=== PATIENT | male | born 1965 | race Caucasian/White ===

== ENCOUNTER → 2018-03-28 | Outpatient (CLI) | payer MEDICARE ==
[~2018-03-28] MED LIST: ALPR1T; AMIO200T50; ASP325TEC; CARV3.12; GLMP4T; LISI20TA; METF-380; NTR.4SL; OXC20TCR; OXYC-272; SERT25TA; SIMV80TA3
--- NOTE | 2018-03-28 13:21 | Diagnostic Imaging Report ---
Indication: Fibular fracture followup There are no prior studies available for comparison. AP lateral views of the right tibia fibula show an oblique fracture of the shaft of the fibula at the junction of the proximal and middle thirds. There is no displacement or angular deformity. The tibia appears to be intact. There does appear to be some bony callus forming along the fracture margins. Impression: Healing right fibular shaft fracture Dictated by: Dictated on workstation # [id number]
== END ==
LOC: RAD FS 13:01
PROVIDERS: ATTEND Nurse Practitioner
DX: S82.431D Displaced oblique fracture of shaft of right fibula, subsequent encounter for closed fracture with routine healing (principal)
CPT/HCPCS: 73590

== ENCOUNTER 2018-04-25 05:41 | Outpatient (CLI) | payer MEDICARE ==
[~2018-04-25] VITALS: Ht 185.4 cm; Wt 108.9 kg
[~2018-04-25 05:41] MED LIST changes: -ALPR1TAB7 PO; -ATOR80TA76 PO; -BUPR75FI3 BC; -CLOP75TA69 PO; -DAPA5TAB PO; -FURO-125 PO; -GLIM4TAB PO; -INSU100I34 SQ; -ISOS30TA3 PO; -LOSA100T57 PO; -METO10TA7 PO; -MONT10TA24 PO; -NALO25TA PO; -NITR0.4T39 SL; -OXYC-565 PO; -OXYC20TA3 PO; -PREG150C PO; -PROP60CA PO; -ROPI2TAB4 PO; -SERT50TA9 PO; -TEST200V21 IM
[2018-04-25] MEDS ORDERED: BUPR75FI3 BC (12:54)
[2018-04-25] MEDS ORDERED: METO10TA7 PO (12:54)
[2018-04-25] MEDS ORDERED: NALO25TA PO (12:54)
[2018-04-25] MEDS ORDERED: GLIM4TAB PO (12:59)
[2018-04-25] MEDS ORDERED: SERT50TA9 PO (12:59)
[2018-04-25] MEDS ORDERED: ALPR1TAB7 PO (12:59)
[2018-04-25] MEDS ORDERED: NITR0.4T39 SL (12:59)
[2018-04-25] MEDS ORDERED: OXYC-565 PO (12:59)
[2018-04-25] MEDS ORDERED: TEST200V21 IM (14:27)
[2018-04-25] MEDS ORDERED: ROPI2TAB4 PO (14:27)
[2018-04-25] MEDS ORDERED: CLOP75TA69 PO (14:27)
[2018-04-25] MEDS ORDERED: ATOR80TA76 PO (14:27)
[2018-04-25] MEDS ORDERED: OXYC20TA3 PO (14:27)
[2018-04-25] MEDS ORDERED: FURO-125 PO (14:27)
[2018-04-25] MEDS ORDERED: INSU100I34 SQ (14:27)
[2018-04-25] MEDS ORDERED: PREG150C PO (14:27)
[2018-04-25] MEDS ORDERED: MONT10TA24 PO (14:27)
[2018-04-25] MEDS ORDERED: LOSA100T57 PO (14:30)
[2018-04-25] MEDS ORDERED: DAPA5TAB PO (14:30)
[2018-04-25] MEDS ORDERED: ISOS30TA3 PO (14:30)
[2018-04-25] MEDS ORDERED: PROP60CA PO (14:30)
== END 2018-04-25 14:42 | disposition home or self-care (01) ==
LOC: PREOP 05:41
PROVIDERS: ATTEND Surgery
DX: Z01.818 Encounter for other preprocedural examination (principal)

== ENCOUNTER → 2018-04-25 | Outpatient (CLI) | payer MEDICARE ==
[~2018-04-25] MED LIST changes: +ALPR1TAB7 PO; +ATOR80TA76 PO; +BUPR75FI3 BC; +CLOP75TA69 PO; +DAPA5TAB PO; +FURO-125 PO; +GLIM4TAB PO; +INSU100I34 SQ; +ISOS30TA3 PO; +LOSA100T57 PO; +METO10TA7 PO; +MONT10TA24 PO; +NALO25TA PO; +NITR0.4T39 SL; +OXYC-565 PO; +OXYC20TA3 PO; +PREG150C PO; +PROP60CA PO; +ROPI2TAB4 PO; +SERT50TA9 PO; +TEST200V21 IM
--- NOTE | 2018-04-25 12:00 | Diagnostic Imaging Report ---
INDICATION: Fibular fracture. Exam compared to 03/28/2018 A fracture junction proximal middle thirds of the shaft right fibula is redemonstrated. There has been some new periosteal and endosteal new bone formation consistent with its partial healing however fracture lines remain perceptible. No overlap, angulation or foreshortening. IMPRESSION: At the fibular shaft fracture is healing in anatomic alignment. Dictated by: Dictated on workstation # [id number]
== END ==
LOC: RAD FS 11:47
PROVIDERS: ATTEND Nurse Practitioner
DX: S82.434D Nondisplaced oblique fracture of shaft of right fibula, subsequent encounter for closed fracture with routine healing (principal)
CPT/HCPCS: 73590

== ENCOUNTER 2018-05-02 05:09 | Inpatient (IN) | payer MEDICARE ==
[~2018-05-02] VITALS: Ht 185.4 cm; Wt 109.1 kg
[2018-05-02] VITALS (30 sets, daily range): BP systolic 58–139; BP diastolic 31–67
[~2018-05-02 05:09] MED LIST changes: +ALPR1TAB7 PO; +ATOR80TA76 PO; +BUPR75FI3 BC; +CLOP75TA69 PO; +DAPA5TAB PO; +FURO-125 PO; +GLIM4TAB PO; +INSU100I34 SQ; +ISOS30TA3 PO; +LOSA100T57 PO; +METO10TA7 PO; +MONT10TA24 PO; +NALO25TA PO; +NITR0.4T39 SL; +OXYC-565 PO; +OXYC20TA3 PO; +PREG150C PO; +PROP60CA PO; +ROPI2TAB4 PO; +SERT50TA9 PO; +TEST200V21 IM
--- NOTE | 2018-05-02 05:40 | NUR ---
DOCTOR NOTIFIED OF PATIENT ARRIVAL.
[2018-05-02] MEDS ORDERED: NS IV 1000 ML 1,000 ML IV SCH (06:00)
--- NOTE | 2018-05-02 06:01 | ED General ---
General Chief Complaint: Glucose Problems Stated Complaint: HIGH BLOOD SUGAR Nursing Triage Note: "I took blood sugar at 0500 and it was over 600, I wasnt sure which insulin to give him and he was too confused to tell me." Nursing Sepsis Screen: No Definite Risk (RASHAUN PEÑA MD) History of Present Illness Date Seen by Provider: May 02, 2018 Time Seen by Provider: 05:50 Initial Comments pt is 52 yo m diabetic insulin dependent was due for wart surgery at 930 am on the right hand down in [place]. just was wewaker than normal yesterday slept most of the day just wasnt feeling like himself, was coughing a little. no dysuria that he knows of. no chest pain. when family got home from work yesterday at four pm he was already asleep he doesnt recall his last meal. this is unusual for him, no fever that he knows of. no vomiting. no abdominal pain. they are taking care of ulcer in between his right toes. (RASHAUN PEÑA MD) Allergies and Home Medications Allergies Coded Allergies: albuterol (Unverified Allergy, Intermediate, hives, 05/02/18) morphine (Verified Allergy, Unknown, itchy all over, 05/02/18) Home Medications Alprazolam 1 Mg Tablet, 1 MG PO QID PRN for ANXIETY, (Reported) Atorvastatin Calcium 80 Mg Tablet, 80 MG PO HS, (Reported) Buprenorphine HCl 75 Mcg Film, 75 MCG BC BID, (Reported) Clopidogrel Bisulfate 75 Mg Tablet, 75 MG PO DAILY, (Reported) Dapagliflozin Propanediol 5 Mg Tablet, 5 MG PO DAILY, (Reported) Furosemide 20 Mg Tablet, 20 MG PO DAILY PRN for FLUID RETENTION, (Reported) Glimepiride 4 Mg Tablet, 4 MG PO BID, (Reported) Insulin Glargine,Hum.rec.anlog 100 Unit/1 Ml Insuln.pen, 90 UNIT SQ DAILY, ( Reported) Isosorbide Mononitrate 30 Mg Tab.er.24h, 30 MG PO DAILY, (Reported) Losartan Potassium 100 Mg Tablet, 100 MG PO DAILY, (Reported) Metolazone 10 Mg Tablet, 10 MG PO DAILY, (Reported) Montelukast Sodium 10 Mg Tablet, 10 MG PO DAILY, (Reported) Naloxegol Oxalate 25 Mg Tablet, 25 MG PO DAILY, (Reported) Nitroglycerin 0.4 Mg Tab.subl, 0.4 MG SL UD PRN for CHEST PAIN, (Reported) Oxycodone HCl 30 Mg Tab.er.12h, 30 MG PO BID, (Reported) Oxycodone HCl 20 Mg Tablet, 20 MG PO Q4H PRN for PAIN-MILD, (Reported) Pregabalin 150 Mg Capsule, 150 MG PO TID, (Reported) Propranolol HCl 60 Mg Cap.sa.24h, 60 MG PO DAILY, (Reported) Ropinirole HCl 2 Mg Tablet, 2 MG PO HS, (Reported) Sertraline HCl 50 Mg Tablet, 50 MG PO DAILY, (Reported) Testosterone Cypionate 200 Mg/1 Ml Vial, 400 MG IM EVERY 2 WEEKS, (Reported) Patient Home Medication List Home Medication List Reviewed: Yes (RASHAUN PEÑA MD) Review of Systems Review of Systems Constitutional: see HPI, weakness Respiratory: cough Cardiovascular: No chest pain Gastrointestinal: no symptoms reported (RASHAUN PEÑA MD) Past Dbvcfsq-Ibtqsx-Mjbzro Hx Past Med/Social Hx: Reviewed Nursing Past Med/Soc Hx (RASHAUN PEÑA MD) Patient Social History Alcohol Use: Denies Use Recreational Drug Use: No Smoking Status: Current Everyday Smoker Type Used: Cigarettes 2nd Hand Smoke Exposure: Yes Recent Foreign Travel: No Contact w/Someone Who Travel: No Recent Infectious Disease Expo: No Physical Abuse: No Sexual Abuse: No Mistreated: No Fear: No (RASHAUN PEÑA MD) Past Medical History Reproductive Disorders: No (RASHAUN PEÑA MD) Physical Exam Vital Signs Vital Signs - First Documented 05/02/18 05/02/18 05:15 08:10 Temp 98.7 Pulse 96 Resp 16 B/P (MAP) 82/56 (65) Pulse Ox 100 O2 Delivery Room Air (BETTY JIMÉNEZ DO) Vital Signs Capillary Refill : Less Than 3 Seconds (RASHAUN PEÑA MD) Height, Weight, BMI Height: 6'1.00" Weight: 220lbs. oz. 99.627851ib; BMI Method:Estimated General Appearance: Mild Distress, Other (disheveled) HEENT: PERRL/EOMI, Pharynx Normal, Other (dry) Neck: Other (tracheostomy noted, appears old) Respiratory: Lungs Clear, Normal Breath Sounds, No Accessory Muscle Use Cardiovascular: Regular Rate, Rhythm, No Edema, Normal Peripheral Pulses Gastrointestinal: Normal Bowel Sounds, Non Tender, Soft Extremity: Normal Capillary Refill, Normal Inspection Neurologic/Psychiatric: Alert, Oriented x3, No Motor/Sensory Deficits, natural gas plant technician II- XII Norm as Tested (RASHAUN PEÑA MD) Focused Exam Lactate Level 05/02/18 06:15: Lactic Acid Level 3.03*H (BETTY JIMÉNEZ DO) Lactic Acid Level Laboratory Tests Test 05/02/18 06:15 Lactic Acid Level 3.03 MMOL/L (0.50-2.00) *H (BETTY JIMÉNEZ DO) Progress/Results/Core Measures Suspected Sepsis Recent Fever Within 48 Hours: No Infection Criteria Present: None New/Unexplained Altered Menta: Yes Sepsis Screen: No Definite Risk SIRS Temperature:98.7 Pulse: 96 Respiratory Rate: 16 Laboratory Tests 05/02/18 05:36: Blood Pressure 82 /56 Mean: 65 Laboratory Tests 05/02/18 05:36: (RASHAUN PEÑA MD) Results/Orders Lab Results Laboratory Tests Test 05/02/18 05:24 05/02/18 05:36 05/02/18 06:15 Range/Units Glucometer > 600 *H 70-110 MG/DL White Blood Count 16.0 H 4.3-11.0 10^3/uL Red Blood Count 4.91 4.35-5.85 10^6/uL Hemoglobin 10.4 L 13.3-17.7 G/DL Hematocrit 37 L 40-54 % Mean Corpuscular Volume 75 L 80-99 FL Mean Corpuscular Hemoglobin 21 L 25-34 PG Mean Corpuscular Hemoglobin Concent 28 L 32-36 G/DL Red Cell Distribution Width 19.6 H 10.0-14.5 % Platelet Count 220 130-400 10^3/uL Mean Platelet Volume 7.4-10.4 FL Neutrophils (%) (Auto) 85 H 42-75 % Lymphocytes (%) (Auto) 8 L 12-44 % Monocytes (%) (Auto) 6 0-12 % Eosinophils (%) (Auto) 0 0-10 % Basophils (%) (Auto) 1 0-10 % Neutrophils # (Auto) 13.6 H 1.8-7.8 X 10^3 Lymphocytes # (Auto) 1.3 1.0-4.0 X 10^3 Monocytes # (Auto) 0.9 0.0-1.0 X 10^3 Eosinophils # (Auto) 0.0 0.0-0.3 10^3/uL Basophils # (Auto) 0.1 0.0-0.1 10^3/uL Neutrophils % (Manual) 80 % Lymphocytes % (Manual) 7 % Monocytes % (Manual) 7 % Band Neutrophils 6 % Hypochromasia 2+ Anisocytosis 2+ Microcytosis 2+ Sodium Level 131 L 135-145 MMOL/L Potassium Level 7.1 *H 3.6-5.0 MMOL/L Chloride Level 90 L 98-107 MMOL/L Carbon Dioxide Level 26 21-32 MMOL/L Anion Gap 15 H 5-14 MMOL/L Blood Urea Nitrogen 97 H 7-18 MG/DL Creatinine 2.06 H 0.60-1.30 MG/DL Estimat Glomerular Filtration Rate 34 BUN/Creatinine Ratio 47 Glucose Level 904 *H 70-105 MG/DL Calcium Level 8.7 8.5-10.1 MG/DL Corrected Calcium 9.1 8.5-10.1 MG/DL Total Bilirubin 0.6 0.1-1.0 MG/DL Aspartate Amino Transf (AST/SGOT) 7 5-34 U/L Alanine Aminotransferase (ALT/SGPT) 7 0-55 U/L Alkaline Phosphatase 83 40-136 U/L Troponin T 36 H <=15 NG/L Total Protein 5.9 L 6.4-8.2 GM/DL Albumin 3.5 3.2-4.5 GM/DL Lipase 136 H 8-78 U/L Lactic Acid Level 3.03 *H 0.50-2.00 MMOL/L (BETTY JIMÉNEZ DO) My Orders Orders - BETTY JIMÉNEZ DO Ns Iv 1000 Ml (Sodium Chloride 0.9%) (05/02/18 06:14) Vancomycin Injection (Vancomycin Injecti (05/02/18 06:20) Piperacillin/Tazobactam (Bulk) (Zosyn In (05/02/18 06:20) Vancomycin Injection (Vancomycin Injecti (05/02/18 06:25) Piperacillin Sodium/Tazobactam (Zosyn Vi (05/02/18 06:26) Ns (Ivpb) (Sodium Chloride 0.9% Ivpb Bag (05/02/18 06:29) Ns Iv 500 Ml (Sodium Chloride 0.9%) (05/02/18 06:29) Insulin (Regular) Human (Humulin R (Per (05/02/18 06:34) Ns Iv 1000 Ml (Sodium Chloride 0.9%) (05/02/18 06:37) Calcium Gluconate 10% Inj (Calcium Glu (05/02/18 06:37) (BETTY JIMÉNEZ DO) Vital Signs/I&O 05/02/18 05/02/18 05:15 08:10 Temp 98.7 97.6 Pulse 96 89 Resp 16 15 B/P (MAP) 82/56 (65) 96/57 (70) Pulse Ox 100 100 O2 Delivery Room Air (BETTY JIMÉNEZ DO) Vital Signs/I&O Capillary Refill : Less Than 3 Seconds (RASHAUN PEÑA MD) Blood Pressure Mean: 65 Point of Care Testing Blood Glucose Action Taken: LABS DRAWN READING TOO HIGH (RASHAUN PEÑA MD) Progress Note : Progress Note 555 am insulin dependent diabetic hyperglycemia pressure 94/60 (triage was lower ) p/w decreased po intake and hyperglycemia in setting of not having been on insulin due to pending surgery. plan for labs, fluids and s/o to dr jiménez pending further workup. (RASHAUN PEÑA MD) Progress Note : Progress Note Aidan addendum: This is a 52-year-old male who presents to the emergency department with his significant other for generalized weakness today, he also was not feeling well yesterday although did not have specific infectious symptoms other than a chronic ulcer, a skin growth on his right third digit for which she is scheduled to have surgery today, and a mild cough. Hypotensive on arrival, this began to improve after receiving 1 L of saline, systolic blood pressures have been in the 90s since change of shift. Patient appears chronically ill, pale, but not in any acute distress and in no visible discomfort. Found to have significant hyperglycemia, bicarbonate level is okay, BUN/creatinine are significantly elevated with a potassium of 7.1. I ordered 2 additional liters for a full 3 L bolus in the emergency department, 10 units of IV insulin, empiric antibiotics, calcium gluconate. Patient and significant other are agreeable with plan for transfer for admission to [facility] , patient was accepted at approximately 6:[address] Mota. Pt will remain on a cardiorespiratory monitor while in the emergency department. Plan for ICU admission. (BETTY JIMÉNEZ DO) ECG Initial ECG Impression Date: May 02, 2018 Initial ECG Impression Time: 05:40 Comment nsr rate 91 no ischemic changes, query borderline peaked t waves? no stemi (RASHAUN PEÑA MD) Critical Care Note Critical Care Start Time: 06:00 Stop Time: 06:35 Total Time (minutes) 35 Progress Critical care time is exclusive of time spent on separately billable procedures. Risk to multiple organ systems from hypotension, dehydration, hyperglycemia, hyperkalemia. Treatment including multiple fluid boluses, IV calcium, IV insulin, frequent reassessments, discussion with accepting hospitalist, EMS, family. Interpretation of EKG, chest x-ray, labs. (BETTY JIMÉNEZ DO) Departure Impression Primary Impression: Hyperglycemia Additional Impressions: Acute kidney failure Qualified Codes: N17.9 - Acute kidney failure, unspecified Hyperkalemia Elevated troponin Hypotension Qualified Codes: I95.9 - Hypotension, unspecified Disposition: 02 XFER SHT-TRM HOSP Condition: Stable (guarded) Transfer Time Spoke to Accepting Phy: 06:45 Transfer Facility: [facility], accepted by Dr. Mota Method of Transfer: EMS (BETTY JIMÉNEZ DO) Departure-Patient Inst. Referrals: JOHNNIE MAGANA DO (PCP/Family) Primary Care Physician RASHAUN PEÑA MD May 02, 2018 06:01 BETTY JIMÉNEZ DO May 02, 2018 06:50
[2018-05-02 06:14] LABS: HEMATOCRIT 37 % (40-54); HEMOGLOBIN 10.4 G/DL (13.3-17.7); MEAN CORPUSCULAR HEMOGLOBIN 21 PG (25-34); MEAN CORPUSCULAR HGB CONC 28 G/DL (32-36); MEAN CORPUSCULAR VOLUME 75 FL (80-99); PLATELET COUNT 220 10^3/uL (130-400); RED CELL DISTRIBUTION WIDTH 19.6 % (10.0-14.5)
[2018-05-02] MEDS ORDERED: NS IV 1000 ML 1,000 ML IV STA ×2 (06:14→06:37)
[2018-05-02 06:15] LABS: BASOPHILS # (AUTO) 0.1 10^3/uL (0.0-0.1); BASOPHILS % (AUTO) 1 % (0-10); EOSINOPHILS % (AUTO) 0 % (0-10); LYMPHOCYTES # (AUTO) 1.3 X 10^3 (1.0-4.0); LYMPHOCYTES % (AUTO) 8 % (12-44); MONOCYTES # (AUTO) 0.9 X 10^3 (0.0-1.0); MONOCYTES % (AUTO) 6 % (0-12); NEUTROPHILS # (AUTO) 13.6 X 10^3 (1.8-7.8); NEUTROPHILS % (AUTO) 85 % (42-75)
[2018-05-02] MEDS ORDERED: PIPERACILLIN/TAZOBACTAM (BULK) 4.5 GM in NS (IVPB) 100 ML IV STA (06:20)
[2018-05-02] MEDS ORDERED: VANCOMYCIN INJECTION 2,000 MG in NS IV 500 ML 500 ML IV STA (06:20)
[2018-05-02] MEDS ORDERED: VANCOMYCIN 1000 MG/VIAL ONE (06:25)
[2018-05-02] MEDS ORDERED: PIPERACILLIN/TAZO 4.5 GM VIAL (ZOSYN) IV ONE (06:26)
[2018-05-02 06:27] LABS: BAND NEUTROPHILS 6 %; LYMPHOCYTES % (MANUAL) 7 %; MONOCYTES % (MANUAL) 7 %; NEUTROPHILS % (MANUAL) 80 %
[2018-05-02 06:28] LABS: ANISOCYTOSIS 2+; HYPOCHROMASIA 2+; MICROCYTOSIS 2+
[2018-05-02] MEDS ORDERED: NS (IVPB) 100 ML ONE (06:29)
[2018-05-02] MEDS ORDERED: NS IV 500 ML 500 ML ONE (06:29)
[2018-05-02 06:30] LABS: BILIRUBIN,TOTAL 0.6 MG/DL (0.1-1.0); CALCIUM 8.7 MG/DL (8.5-10.1); CREATININE SERUM 2.06 MG/DL (0.60-1.30)
[2018-05-02 06:31] LABS: ALBUMIN 3.5 GM/DL (3.2-4.5); TOTAL PROTEIN 5.9 GM/DL (6.4-8.2)
[2018-05-02 06:33] LABS: POTASSIUM 7.1 MMOL/L (3.6-5.0)
[2018-05-02] MEDS ORDERED: inSUlin (REGULAR) HUMAN 1 UNIT/0.01 ML (CHARGE PER UNIT) IV STA (06:34)
[2018-05-02] MEDS ORDERED: NOVOLOG (06:37)
[2018-05-02] MEDS ORDERED: BUPRENORPHINE 75 MCG (06:37)
[2018-05-02] MEDS ORDERED: CALCIUM GLUCONATE 10% INJ 4.65 MEQ in NS (IVPB) 50 ML IV STA (06:37)
--- NOTE | 2018-05-02 06:55 | Diagnostic Imaging Report ---
INDICATION: Chest discomfort AP upright portable view of the chest is obtained with comparison made to the study of 03/04/2008. Heart size is at the upper limits of normal. There is air trapping in the upper lobes, however, no pneumothorax or consolidation is identified. There may be mild right parahilar atelectasis and/or pneumonitis. Tracheostomy tube has been placed with median sternotomy wires noted. IMPRESSION: Air trapping in the upper lobes may reflect developing emphysema. There may be mild right parahilar atelectasis and/or pneumonitis, however, no other adverse change is detected. Dictated by: Dictated on workstation # [id number]
[2018-05-02] MEDS ORDERED: MIDAZOLAM 5 MG/5 ML (VERSED) VIAL IJ ONE (07:31)
[2018-05-02] MEDS ORDERED: fentaNYL INJECTION 100 MCG/2 ML AMP INJ ONE (07:31)
--- NOTE | 2018-05-02 08:32 | NUR ---
pharmacy called for med rec
[2018-05-02] MEDS ORDERED: 1/2 NS IV SOLUTION 1,000 ML IV SCH (09:30)
[2018-05-02] MEDS ORDERED: CATHETER FLUSH 10 ML SYR IV PRN (09:30)
[2018-05-02 09:40] LABS: HEMATOCRIT 29 % (40-54); MEAN CORPUSCULAR HEMOGLOBIN 22 PG (25-34); MEAN CORPUSCULAR HGB CONC 31 G/DL (32-36); MEAN CORPUSCULAR VOLUME 71 FL (80-99); PLATELET COUNT 189 10^3/uL (130-400); RED CELL DISTRIBUTION WIDTH 18.9 % (10.0-14.5); WHITE BLOOD COUNT 11.2 10^3/uL (4.3-11.0)
[2018-05-02] MEDS ORDERED: NS IV 1000 ML 1,000 ML ONE (09:49)
[2018-05-02] MEDS ORDERED: LIDOCAINE 1% INJ 20 ML 20 ML VIAL ONE (09:55)
[2018-05-02 09:57] LABS: CALCIUM 8.4 MG/DL (8.5-10.1); CREATININE SERUM 2.2 MG/DL (0.60-1.30); POTASSIUM 4.7 MMOL/L (3.6-5.0)
[2018-05-02 10:02] LABS: INR 1.1 (0.8-1.4); PROTHROMBIN TIME PATIENT 15.1 SEC (12.2-14.7)
[2018-05-02] MEDS ORDERED: inSUlin (REGULAR) HUMAN 1 UNIT/0.01 ML (CHARGE PER UNIT) SC NR (10:30)
[2018-05-02] MEDS ORDERED: inSUlin REGULAR TPN/DRIP ONLY 250 UNITS in NORMAL SALINE 250 ML IV SCH (10:30)
[2018-05-02] MEDS ORDERED: NITR0.4T42 SL (10:31)
[2018-05-02] MEDS ORDERED: CEFD300C3 PO (10:31)
[2018-05-02] MEDS ORDERED: FURO20TA4 PO (10:31)
[2018-05-02] MEDS ORDERED: CLOP75TA28 PO (10:31)
[2018-05-02 11:03] LABS: BILIRUBIN,URINE NEGATIVE (NEGATIVE); CLARITY,URINE CLEAR; COLOR,URINE YELLOW; GLUCOSE, URINE (UA) 4+ (NEGATIVE); KETONES,URINE 1+ (NEGATIVE); LEUKOCYTE ESTERASE ,URINE NEGATIVE (NEGATIVE); NITRITE,URINE NEGATIVE (NEGATIVE); PH,URINE 6.5 (5-9); PROTEIN,URINE NEGATIVE (NEGATIVE); UROBILINOGEN,URINE NORMAL (NORMAL)
--- NOTE | 2018-05-02 11:17 | History & Physical-Hospitalist ---
History of Present Illness HPI/Chief Complaint Pt is a 52yoCM with a PMH of IDDMII, PVD, trach dependency from vocal cord paralysis who presented to the ER due elevated blood sugar. He is unable to provide any history due to altered mentation but his fiance is at bedside who helps fill in some details. reported he was normal 2 days ago and when she returned home from work at 4pm yesterday he was already asleep. She did not think much of this but she awoke this morning at 230am and he seemed "out of it " so she checked his blood sugar and it read over 600 so she brought him to the ER. He was found to have a BS of >900 and was hypotensive on arrival. He also had an CARLIN with significant uremia and hyperkalemia. He was transferred here for higher level of care. En route he had a large bloody bowel movement. His fiance is unsure if he had any other bloody bowel movements. Source: patient Date Seen 05/02/18 Time Seen by a Provider: 11:12 Attending Physician Jayesh Mota MD PCP Dallas Wadsworth DO Referring Physician Date of Admission May 02, 2018 at 07:37 Home Medications & Allergies Home Medications Reviewed patient Home Medication Reconciliation performed by pharmacy medication reconciliations security technician and/or nursing. Patients Allergies have been reviewed. Allergies Allergies Coded Allergies albuterol (Unverified Allergy, Intermediate, hives, 05/02/18) morphine (Verified Allergy, Unknown, itchy all over, 05/02/18) Past Iloidha-Dkjjlt-Clqkbz Hx Past Med/Social Hx: Reviewed Nursing Past Med/Soc Hx Patient Social History Alcohol Use: Denies Use Recreational Drug Use: No Smoking Status: Current Everyday Smoker Type Used: Cigarettes 2nd Hand Smoke Exposure: Yes Recent Foreign Travel: No Contact w/other who traveled: No Recent Infectious Disease Expo: No Past Medical History Surgeries: Tracheostomy Respiratory: Emphysema Cardiac: Hypertension, Peripheral Vascular Reproductive: No Endocrine: Diabetes, Insulin dep Cancer: Skin (squamous cell) Family History Reviewed Nursing Family Hx (unable to obtain due to altered mental status) Review of Systems ROS-Unable to Obtain: altered Constitutional: see HPI Physical Exam Physical Exam Vital Signs Vital Signs - First Documented 05/02/18 05/02/18 05/02/18 05/02/18 05:15 08:10 14:50 16:00 Temp 98.7 Pulse 96 Resp 16 B/P (MAP) 82/56 (65) Pulse Ox 100 O2 Delivery Room Air O2 Flow Rate 50.00 FiO2 50 Capillary Refill : Less Than 3 Seconds Height, Weight, BMI Height: 6'1.00" Weight: 240lbs. 0.0oz. 108.827551ay; 31.7 BMI Method:Estimated General Appearance: Chronically ill, Obese HEENT: PERRL/EOMI; No Scleral Icterus (L), No Scleral Icterus (R) Neck: Other (trach in place) Respiratory: Lungs Clear, No Respiratory Distress Cardiovascular: Regular Rate, Rhythm, No Murmur Gastrointestinal: Normal Bowel Sounds, Non Tender, Soft Extremity: No Calf Tenderness, No Pedal Edema, Other (right foot wound between 3rd and 4th digit) Neurologic/Psychiatric: Alert, Disoriented Skin: Tattoos/Piercings Results Results/Procedures Labs Laboratory Tests 05/02/18 05:36 05/02/18 09:30 05/02/18 15:14 05/02/18 17:58 05/02/18 20:00 05/03/18 00:30 05/03/18 03:20 05/03/18 07:00 05/03/18 12:20 Patient resulted labs reviewed. Imaging: Reviewed Imaging Report Assessment/Plan Admission Diagnosis Acute Renal failure, GI Bleed, HHS Admission Status: Inpatient Order (span 2 midnights) Reason for Inpatient Admission: hypotensive, needs surgery evaluation for GI bleed and IVF for CARLIN- multiple chronic medical problems will require at least 2 midnights to stabilize for DC and likely longer Diagnosis/Problems Diagnosis/Problems (1) Acute kidney failure Status: Acute Assessment & Plan: Creatinine 2- last available creatinine was nearly 10 years ago and normal Significant uremia Continue IVF trend hyperkalemia resolved and not acidotic Qualifiers: Acute renal failure type: unspecified Qualified Codes: N17.9 - Acute kidney failure, unspecified (2) GI bleed Status: Acute Assessment & Plan: BRBPR per EMS Hgb dropped to 9 from 10.6 this AM May be due to dilution as well Surgery consulted, appreciate recs Will start PPI Qualifiers: GI bleed type/associated pathology: unspecified gastrointestinal hemorrhage type Qualified Codes: K92.2 - Gastrointestinal hemorrhage, unspecified (3) Hyperosmolar non-ketotic state in patient with type 2 diabetes mellitus Assessment & Plan: Not in DKA Continue insulin gtt A1c pending (4) Lactic acidosis Status: Resolved Assessment & Plan: Likely due to hypotension, does not appear to be related to sepsis trend Continue IVF Resolution Date/Time: 05/03/18 @ 07:31 (5) Tracheostomy present Assessment & Plan: Trach care Pulm consulted, appreciate recs (6) Altered mental status Assessment & Plan: likely metabolic encephalopathy from uremia No focal deficits but if does not improve consider CT head Qualifiers: Altered mental status type: delirium Qualified Codes: R41.0 - Disorientation, unspecified (7) Hyperkalemia Status: Acute Assessment & Plan: Now resolved (8) Hypotension Status: Acute Assessment & Plan: Art line ordered Presumably due to hypovolemia Qualifiers: Hypotension type: unspecified hypotension type Qualified Codes: I95.9 - Hypotension, unspecified (9) Elevated troponin Status: Acute Assessment & Plan: Will recheck here Consult cardiology, spoke with Dr Montgomery appreciate assistance (10) Wound, open, toe Assessment & Plan: Wound care consulted, I spoke with Dr Staples who will see in consultation XR ordered appreciate recs Qualifiers: Encounter type: initial encounter Qualified Codes: S91.109A - Unspecified open wound of unspecified toe(s) without damage to nail, initial encounter ELAINA MCLEOD MD May 02, 2018 11:16
[2018-05-02 11:25] LABS: BACTERIA,URINE NEGATIVE /HPF; SQUAMOUS EPITHELIAL CELL,UR RARE /HPF
--- NOTE | 2018-05-02 11:26 | Pulmonary Consultation ---
History of Present Illness History of Present Illness Date of Consultation 05/02/18 11:21 Time Seen by Provider: 07:58 Date of Admission History of Present Illness 52yo with hx of IDDM, chronic trach seocndary to vocal cord paralysis and chronic respiratory failure presented to ED secondary to worsening hyperglycemia and lethargy. Symptoms have been progressive over the last 24hrs. BS was >900 in the ED. PT was also hypotensive on arrival and was found to have acute GIB. He is also in acute renal failure. Unable to obtain full ROS. I am consulted for ICU/pulmonary management. Allergies and Home Medications Allergies Coded Allergies: albuterol (Unverified Allergy, Intermediate, hives, 05/02/18) morphine (Verified Allergy, Unknown, itchy all over, 05/02/18) Home Medications Alprazolam 1 Mg Tablet, 1 MG PO QID PRN for ANXIETY, (Reported) Aspirin 325 Mg Tablet.dr, 325 MG PO HS, (Reported) Atorvastatin Calcium 80 Mg Tablet, 80 MG PO HS, (Reported) Cefdinir 300 Mg Capsule, 300 MG PO BID, (Reported) 10 DAY SUPPLY FILLED 04-22-18 Clopidogrel Bisulfate 75 Mg Tablet, 75 MG PO HS, (Reported) Dapagliflozin Propanediol 5 Mg Tablet, 5 MG PO DAILY, (Reported) Furosemide 20 Mg Tablet, 20 MG PO DAILY, (Reported) Glimepiride 4 Mg Tablet, 4 MG PO BID, (Reported) Insulin Aspart 300 Units/3 Ml Solution, 20 UNITS SC TIDAC, (Reported) Insulin Glargine,Hum.rec.anlog 100 Unit/1 Ml Insuln.pen, 90 UNIT SQ DAILY, ( Reported) Isosorbide Mononitrate 30 Mg Tab.er.24h, 30 MG PO DAILY, (Reported) Losartan Potassium 100 Mg Tablet, 100 MG PO HS, (Reported) Metolazone 10 Mg Tablet, 10 MG PO DAILY, (Reported) Montelukast Sodium 10 Mg Tablet, 10 MG PO DAILY, (Reported) Naloxegol Oxalate 25 Mg Tablet, 25 MG PO HS, (Reported) Nitroglycerin 0.4 Mg Tab.subl, 0.4 MG SL UD PRN for CHEST PAIN, (Reported) Oxycodone HCl 20 Mg Tablet, 20 MG PO Q4H PRN for PAIN-SEVERE, (Reported) Oxycodone HCl 30 Mg Tab.er.12h, 30 MG PO Q8H, (Reported) Pregabalin 150 Mg Capsule, 150 MG PO TID, (Reported) Propranolol HCl 60 Mg Cap.sa.24h, 60 MG PO HS, (Reported) Ropinirole HCl 2 Mg Tablet, 2 MG PO HS, (Reported) Sertraline HCl 50 Mg Tablet, 50 MG PO HS, (Reported) Testosterone Cypionate 200 Mg/1 Ml Vial, 400 MG IM EVERY 2 WEEKS, (Reported) Past Mllkdbi-Difmph-Niujpm Hx Past Med/Social Hx: Reviewed Nursing Past Med/Soc Hx Patient Social History Alcohol Use: Denies Use Recreational Drug Use: No Smoking Status: Current Everyday Smoker Type Used: Cigarettes 2nd Hand Smoke Exposure: Yes Recent Foreign Travel: No Contact w/Someone Who Travel: No Recent Infectious Disease Expo: No Physical Abuse: No Sexual Abuse: No Mistreated: No Fear: No Past Medical History Surgeries: Yes Reproductive Disorders: No Endocrine: Yes Diabetes, Insulin dep Review of Systems Time Seen by Provider: 08:02 Sepsis Event Evaluation Height, Weight, BMI Height: 6'1.00" Weight: 240lbs. 0.0oz. 108.095162fh; 31.7 BMI Method:Estimated Exam Exam Vital Signs Date Time Temp Pulse Resp B/P (MAP) Pulse Ox O2 Delivery O2 Flow Rate FiO2 05/02/18 10:30 106 14 112/41 (64) 05/02/18 10:15 98 101/41 (61) 05/02/18 10:00 98 21 106/59 (75) 97 05/02/18 09:40 93 77/41 (53) 93 05/02/18 09:30 95 72/33 (46) 94 05/02/18 09:25 96 14 92/38 (56) 99 05/02/18 09:19 96 05/02/18 09:10 103 106/67 (80) 05/02/18 08:10 97.6 89 15 96/57 (70) 100 Room Air 05/02/18 05:15 98.7 96 16 82/56 (65) 100 I & O 05/02/18 07:00 Intake Total 1000 ml Balance 1000 ml Height & Weight Height: 6'1.00" Weight: 240lbs. 0.0oz. 108.769053ck; 31.7 BMI Method:Estimated General Appearance: Mild Distress, Other (disheveled) HEENT: PERRL/EOMI, Pharynx Normal, Other (dry) Neck: Other (tracheostomy noted, appears old) Respiratory: Lungs Clear, Normal Breath Sounds, No Accessory Muscle Use Cardiovascular: Regular Rate, Rhythm, No Edema, Normal Peripheral Pulses Capillary Refill: Less Than 3 Seconds Extremity: Normal Capillary Refill, Normal Inspection Neurologic/Psychiatric: Alert, Oriented x3, No Motor/Sensory Deficits, assessment director II- XII Norm as Tested Results Lab Laboratory Tests 05/02/18 05:36 05/02/18 09:30 Assessment/Plan Assessment/Plan Chronic respiratory failure with tracheostomy -Obtain old records -Oxygen -Monitor Hyperglycemia -- HHNK -start insulin gtt Hypotension -Anesthesia for art line -Monitor close -Give 1 liter bolus of NS AKF -IVF -Monitor GIB -- lower GIB vs major upper GIB ( BUN is 101) -Start Protonix BID IV -consult surgery -Check H&H Q 6 -IVF Hyperkalemia -recheck and monitor Elevated troponin - probably secondary to hypotension ACOSTA FRAGA DO May 02, 2018 11:26
[2018-05-02] MEDS ORDERED: PANTOPRAZOLE 40 MG (PROTONIX) VIAL IV NR (11:30)
[2018-05-02] MEDS ORDERED: OXYC30TA77 PO (11:31)
[2018-05-02] MEDS ORDERED: INSU100I14 SC (11:31)
[2018-05-02] MEDS ORDERED: ASPI325T32 PO (11:31)
--- NOTE | 2018-05-02 11:32 | NUR ---
PATIENTS HAD A DETAILED MEDICATION LIST ON HER PHONE, I COMPARED IT WITH THE EXT MED HX. HE FILLED A 7 DAY SUPPLY OF BELBUCA THIS MONTH HOWEVER SHE STATES HE HAS NOT STARTED IT YET. I DID NOT ADD IT TO THE MED REC AT THIS TIME.
[2018-05-02 11:47] LABS: ABG BASE EXCESS -1.7 MMOL/L (-2.5-2.5); ABG OXYGEN SATURATION 100 % (94-100); ABG PCO2 28 MMHG (35-45); ABG PH 7.49 (7.37-7.43); ABG PO2 163 MMHG (79-93); ABG TCO2 22.2 MMOL/L (21.0-31.0)
[2018-05-02 11:53] LABS: ALLENS TEST YES-POS; INSPIRED O2 4; PATIENT TEMP 97.1; VENTILATOR NO
[2018-05-02] MEDS ORDERED: LORazepam INJ 2 MG/ML (ATIVAN) VIAL IVP ONE (13:30)
--- NOTE | 2018-05-02 14:06 | Diagnostic Imaging Report ---
INDICATION: Toe wound. COMPARISON: None. FINDINGS: Two radiographic views of the right foot were obtained. There is mild lateral subluxation of the middle fourth phalanx in respect to the proximal fourth phalanx. Note is also made of erosive appearance to the lateral margins of the fourth middle phalanx as well as the distal end of the fifth distal phalanx. There is some associated soft tissue emphysema. Other remaining osseous structures show no acute abnormalities. No unexpected radiopaque foreign bodies are seen. IMPRESSION: 1. Osseous erosions to the fourth middle phalanx and fifth distal phalanx. Presence of soft tissue emphysema and soft tissue edema suggests osteomyelitis. Clinical correlation is recommended. Dictated by: Dictated on workstation # [id number]
[2018-05-02] MEDS ORDERED: HALOPERIDOL 5 MG/ML (HALDOL) AMP IV NR (14:19)
[2018-05-02] MEDS ORDERED: fentaNYL INJECTION 100 MCG/2 ML AMP ONE (14:22)
[2018-05-02] MEDS ORDERED: MIDAZOLAM 5 MG/5 ML (VERSED) VIAL ONE (14:22)
--- NOTE | 2018-05-02 14:23 | Diagnostic Imaging Report ---
INDICATION: Wounds to the feet. COMPARISON: None. FINDINGS: Two views of the left foot demonstrate no acute fracture or dislocation. There are no focal osseous lesions. There is no soft tissue swelling. Joint spaces are well maintained. No radiopaque foreign bodies are seen. IMPRESSION: No acute fractures or dislocations of the left foot. Dictated by: Dictated on workstation # [id number]
[2018-05-02] MEDS ORDERED: PROPOFOL DRIP (ICU) 100 ML IV ONE ×2 (14:28→18:17)
[2018-05-02] MEDS ORDERED: DEXMEDETOMIDINE INJECTION 200 MCG in NS (IVPB) 50 ML IV SCH (15:00)
--- NOTE | 2018-05-02 15:24 | Anesthesia-Procedure Note ---
Procedures/Interventions Procedure Start/Stop/Diagnosis Date of Procedure: May 02, 2018 Start Time: 11:45 Referring Physician: Dr Iglesias Preprocedural Diagnosis: Hypotension Brief History Called to ICU by Dr Iglesias for an arterial line placement. Brief history obtained from Dr Iglesias and patient. Attempted left radial times one without U/ S after ~1/2 ml 1% lidocaine, however I was unable to easily locate the artery. Returned with the U/S and was able to place a right radial art line under direct visualization. Chloraprep and sterile drapes and a sterile U/S probe cover were used. Pt tolerated the procedure well and we will be available if needed. Stop Time: 12:05 Postprocedural Diagnosis: Same Arterial Line Arterial Line Catheter: 22G Type: Radial Location: Right Procedure: prepped, draped in sterile fashion (ChloraPrep), 1% lidocaine used to numb region (~1/2 ml 1% Lidocaine ), good wave-form was obtained, patient tolerated procedure well, no immediate complications, post procedure area cleaned, post procedure dressing applied KWESI VASQUEZ DO May 02, 2018 15:24
[2018-05-02 15:32] LABS: HEMOGLOBIN 6.1 G/DL (13.3-17.7)
[2018-05-02] MEDS ORDERED: POTASSIUM CL 10MEQ/50ML IVPB 50 ML IV ONE (15:39)
--- NOTE | 2018-05-02 15:47 | Pulmonary Progress Note ---
Standard Progress Note Progress Notes Date Seen by Provider: May 02, 2018 Time Seen by Provider: 14:20 Called to bedside secondary to combative patient. 3-4 RNs at bedside holding patient down. Pt ripped IV out. He was trying to throw punches as RN was restraining patient. To control pt's combative behavior I ordered Fentanyl and Versed with repeating doses to obtain sedation. PT was restrained by RNs with soft restraints. PT has a chronic tracheostomy with size 6 uncuffed. I attempted to place size 6 cuffed tracheostomy after pt was sedated so he could be placed on vent. I called surgery to assist with trach tube placement. After cuffed trach tube was placed propofol was started and pt was placed back on vent. Time spent with pt not including initial consult this morning was from [id number]. Assessment & Plan Chronic respiratory failure with tracheostomy -Will place pt on vent and add propofol -Obtain old records -Oxygen -Monitor Hyperglycemia -- HHNK -start insulin gtt Hypotension - improved with IVF -Anesthesia for art line -Monitor close -Give 1 liter bolus of NS -Dr. Jmienez at bedside and will place central line AKF -IVF -Monitor GIB -- lower GIB vs major upper GIB ( BUN is 101) -Start Protonix BID IV -consult surgery -Check H&H Q 6 -IVF Hyperkalemia -recheck and monitor Elevated troponin - probably secondary to hypotension Critical Care: Critically Ill Patient Time spent with patient (mins): 75 Focused Exam Lactate Level 05/02/18 06:15: Lactic Acid Level 3.03*H 05/02/18 09:30: Lactic Acid Level 2.54*H 05/02/18 15:14: Lactic Acid Level Laboratory Tests Test 05/02/18 15:14 ACOSTA FRAGA DO May 02, 2018 15:47
--- NOTE | 2018-05-02 16:03 | Consultation-Cardiology ---
HPI-Cardiology Cardiology Consultation Date of Consultation 05/02/18 Date of Admission Time Seen by Provider: 15:58 Indication: coronary artery disease HPI 52 years old gentleman with history of tracheostomy, diabetes mellitus. Patient was found by his girlfriend unresponsive, was noted to be hyperglycemic. Transferred to our hospital. He was having multiple bloody bowel movements. He became agitated and try to attack the nurses, had extensive cardiac history, progressed into respiratory failure, had his tracheostomy, patient was sedated and placed on ventilator, currently he is sedated and intubated, hypotensive. Unable to provide history. Home Medications & Allergies Allergies: Coded Allergies: albuterol (Unverified Allergy, Intermediate, hives, 05/02/18) morphine (Verified Allergy, Unknown, itchy all over, 05/02/18) Home Medication List Reviewed: Yes LZR-Ttencg-Uomoth Hx Patient Social History Marital Status: cohabiting Employed/Student: unemployed Alcohol Use: Denies Use Recreational Drug Use: No Smoking Status: Current Everyday Smoker Type Used: Cigarettes 2nd Hand Smoke Exposure: Yes Recent Foreign Travel: No Recent Infectious Disease Expo: No Past Medical History unable to provide history, history was obtained by reviewing his record Family Medical History Family Medical Hx noncontributory to his current condition Review of Systems Constitutional: other (sedated and intubated, unable to provide history) Reviewed Test Results Reviewed Test Results Lab Laboratory Tests Test 05/02/18 05:24 05/02/18 05:36 05/02/18 06:15 05/02/18 09:30 Range/Units Glucometer > 600 *H 70-110 MG/DL White Blood Count 16.0 H 11.2 H 4.3-11.0 10^3/uL Red Blood Count 4.91 4.09 L 4.35-5.85 10^6/uL Hemoglobin 10.4 L 9.0 L 13.3-17.7 G/DL Hematocrit 37 L 29 L 40-54 % Mean Corpuscular Volume 75 L 71 L 80-99 FL Mean Corpuscular Hemoglobin 21 L 22 L 25-34 PG Mean Corpuscular Hemoglobin Concent 28 L 31 L 32-36 G/DL Red Cell Distribution Width 19.6 H 18.9 H 10.0-14.5 % Platelet Count 220 189 130-400 10^3/uL Mean Platelet Volume 7.4-10.4 FL Neutrophils (%) (Auto) 85 H 42-75 % Lymphocytes (%) (Auto) 8 L 12-44 % Monocytes (%) (Auto) 6 0-12 % Eosinophils (%) (Auto) 0 0-10 % Basophils (%) (Auto) 1 0-10 % Neutrophils # (Auto) 13.6 H 1.8-7.8 X 10^3 Lymphocytes # (Auto) 1.3 1.0-4.0 X 10^3 Monocytes # (Auto) 0.9 0.0-1.0 X 10^3 Eosinophils # (Auto) 0.0 0.0-0.3 10^3/uL Basophils # (Auto) 0.1 0.0-0.1 10^3/uL Neutrophils % (Manual) 80 % Lymphocytes % (Manual) 7 % Monocytes % (Manual) 7 % Band Neutrophils 6 % Hypochromasia 2+ Anisocytosis 2+ Microcytosis 2+ Sodium Level 131 L 136 135-145 MMOL/L Potassium Level 7.1 *H 4.7 3.6-5.0 MMOL/L Chloride Level 90 L 102 98-107 MMOL/L Carbon Dioxide Level 26 24 21-32 MMOL/L Anion Gap 15 H 10 5-14 MMOL/L Blood Urea Nitrogen 97 H 101 *H 7-18 MG/DL Creatinine 2.06 H 2.20 H 0.60-1.30 MG/DL Estimat Glomerular Filtration Rate 34 31 BUN/Creatinine Ratio 47 46 Glucose Level 904 *H 794 *H 70-105 MG/DL Calcium Level 8.7 8.4 L 8.5-10.1 MG/DL Corrected Calcium 9.1 8.5-10.1 MG/DL Total Bilirubin 0.6 0.1-1.0 MG/DL Aspartate Amino Transf (AST/SGOT) 7 5-34 U/L Alanine Aminotransferase (ALT/SGPT) 7 0-55 U/L Alkaline Phosphatase 83 40-136 U/L Troponin T 36 H <=15 NG/L Total Protein 5.9 L 6.4-8.2 GM/DL Albumin 3.5 3.2-4.5 GM/DL Lipase 136 H 8-78 U/L Lactic Acid Level 3.03 *H 2.54 *H 0.50-2.00 MMOL/L Troponin I < 0.028 <0.028 NG/ML Beta-Hydroxybutyrate (Chem panel) 0.76 H 0.00-0.27 MMOL/L Test 05/02/18 09:50 05/02/18 10:57 05/02/18 11:31 05/02/18 11:40 Range/Units Prothrombin Time 15.1 H 12.2-14.7 SEC INR Comment 1.1 0.8-1.4 Activated Partial Thromboplast Time 27 24-35 SEC Urine Color YELLOW Urine Clarity CLEAR Urine pH 6.5 5-9 Urine Specific [place] 1.005 L 1.016-1.022 Urine Protein NEGATIVE NEGATIVE Urine Glucose (UA) 4+ H NEGATIVE Urine Ketones 1+ H NEGATIVE Urine Nitrite NEGATIVE NEGATIVE Urine Bilirubin NEGATIVE NEGATIVE Urine Urobilinogen NORMAL NORMAL MG/DL Urine Leukocyte Esterase NEGATIVE NEGATIVE Urine RBC (Auto) NEGATIVE NEGATIVE Urine RBC NONE /HPF Urine WBC NONE /HPF Urine Squamous Epithelial Cells RARE /HPF Urine Crystals NONE /LPF Urine Bacteria NEGATIVE /HPF Urine Casts NONE /LPF Urine Mucus NEGATIVE /LPF Urine Culture Indicated NO Glucometer > 600 *H 70-110 MG/DL Blood Gas Puncture Site R RAD Blood Gas Patient Temperature 97.1 Arterial Blood pH 7.49 H 7.37-7.43 Arterial Blood Partial Pressure CO2 28 L 35-45 MMHG Arterial Blood Partial Pressure O2 163 H 79-93 MMHG Arterial Blood HCO3 21 L 23-27 MMOL/L Arterial Blood Total CO2 22.2 21.0-31.0 MMOL/L Arterial Blood Oxygen Saturation 100 94-100 % Arterial Blood Base Excess -1.7 -2.5-2.5 MMOL/L Devin Test YES-POS Blood Gas Ventilator Setting NO Blood Gas Inspired Oxygen 4 Test 05/02/18 13:22 05/02/18 14:38 05/02/18 15:14 05/02/18 15:24 Range/Units Glucometer > 600 *H 471 *H 436 *H 70-110 MG/DL Hemoglobin 6.1 #*L 13.3-17.7 G/DL Hematocrit 21 L 40-54 % Glucose Level 398 H 70-105 MG/DL Lactic Acid Level 4.43 *H 0.50-2.00 MMOL/L Ammonia 22 11-32 UMOL/L Physical Exam Vital Signs Vital Signs - First Documented 05/02/18 05/02/18 05:15 08:10 Temp 98.7 Pulse 96 Resp 16 B/P (MAP) 82/56 (65) Pulse Ox 100 O2 Delivery Room Air Capillary Refill : Less Than 3 Seconds Height, Weight, BMI Height: 6'1.00" Weight: 240lbs. 0.0oz. 108.516115ox; 31.7 BMI Method:Estimated General Appearance: WD/WN, Severe Distress, Other (sedated and intubated) Eyes: Bilateral Eye Normal Inspection, Bilateral Eye PERRL, Bilateral Eye EOMI HEENT: Other (tracheostomy, sedated) Neck: Other (tracheostomy) Respiratory: No Accessory Muscle Use, No Respiratory Distress, Decreased Breath Sounds, Rhonci Cardiovascular: Regular Rate, Rhythm, Systolic Murmur Gastrointestinal: Normal Bowel Sounds Back: Normal Inspection Extremity: Non Tender, No Calf Tenderness, Pedal Edema Neurologic/Psychiatric: Other (sedated and intubated) Skin: Normal Color, Warm/Dry Lymphatic: No Adenopathy A/P-Cardiology Admission Diagnosis Acute respiratory failure GI bleed Hypovolemic shock Coronary artery disease Assessment/Plan Acute on chronic respiratory failure, history of tracheostomy after vocal cord injury, currently progressed to respiratory failure and ventilatory dependent. GI bleed, significant drop in hemoglobin. Receiving IV fluid and waiting for blood transfusion Hypotensive shock, hypovolemia, continue with volume replacement Coronary artery disease, history of CABG 4 done in 2008 with paralyzed vocal cord and multiple throat surgeries for removal of vocal cord resulted in tracheostomy in 2008. Peripheral arterial disease Hypertension, currently hypotensive. Monitor blood pressure Hyperglycemia, history of type II diabetes. Admitted with blood sugar around 900, currently around 400. Managed by compliance clerk. Chronic pain syndrome, osteoarthritis History of testicular hypofunction Gastroesophageal reflux disease OSMAR Hou MD May 02, 2018 16:03
--- NOTE | 2018-05-02 16:03 | Diagnostic Imaging Report ---
INDICATION: Central line placement and NG tube placement. TIME OF EXAM: 3:40 p.m. COMPARISON: Prior exam from earlier the same day. FINDINGS: Tracheostomy tube has tip above the jeevan. NG tube passes into the stomach. Left-sided line appears to have the tip overlying the SVC. There is no pneumothorax. The lungs are clear. IMPRESSION: Changes in median sternotomy and CABG. Subclavian line with tip overlying the SVC. There is no pneumothorax. NG tube passes into the stomach. Dictated by: Dictated on workstation # [id number]
[2018-05-02] MEDS ORDERED: NOREPINEPHRINE 4 MG/4 ML (LEVOPHED) AMP IV ONE (16:07)
[2018-05-02] MEDS ORDERED: D5W IV SOLUTION (EXCEL) 250 ML IV ONE (16:08)
[2018-05-02] MEDS: NOREPINEPHRINE 4 MG in NS (IVPB) 250 ML IV SCH (16:30)
[2018-05-02] MEDS ORDERED: NOREPINEPHRINE 4 MG in NS (IVPB) 250 ML IV SCH (16:30)
[2018-05-02] MEDS ORDERED: D5 1/2 NS 1000 ML IV SOLUTION 1,000 ML IV SCH (16:45)
[2018-05-02] MEDS: POTASSIUM CL 10MEQ/50ML IVPB 50 ML IV SCH ×3 (16:50→20:19)
[2018-05-02] MEDS: PIPERACILLIN/TAZOBACTAM (BULK) 4.5 GM in NS (IVPB) 100 ML IV SCH ×2 (16:52→21:20)
[2018-05-02] MEDS: NS IV 1000 ML 1,000 ML IV SCH ×4 (16:52→19:55)
[2018-05-02] MEDS ORDERED: PANTOPRAZOLE 40 MG (PROTONIX) VIAL ONE (16:59)
[2018-05-02] MEDS: fentaNYL INJECTION 1,250 MCG in NS (IVPB) 250 ML IV SCH (17:11)
[2018-05-02 18:07] LABS: HEMOGLOBIN 6.1 G/DL (13.3-17.7)
[2018-05-02 18:25] LABS: CREATININE SERUM 1.92 MG/DL (0.60-1.30)
[2018-05-02 19:59] LABS: BILIRUBIN,URINE NEGATIVE (NEGATIVE); CLARITY,URINE CLEAR; COLOR,URINE YELLOW; GLUCOSE, URINE (UA) 4+ (NEGATIVE); KETONES,URINE NEGATIVE (NEGATIVE); LEUKOCYTE ESTERASE ,URINE NEGATIVE (NEGATIVE); NITRITE,URINE NEGATIVE (NEGATIVE); PH,URINE 5 (5-9); PROTEIN,URINE NEGATIVE (NEGATIVE); UROBILINOGEN,URINE NORMAL (NORMAL)
[2018-05-02 20:06] LABS: BACTERIA,URINE NEGATIVE /HPF; RBC,URINE 0-2 /HPF; SQUAMOUS EPITHELIAL CELL,UR 0-2 /HPF
[2018-05-02 20:12] LABS: AMPHETAMINE SCREEN, URINE NEGATIVE (NEGATIVE); BARBITURATE SCREEN URINE NEGATIVE (NEGATIVE); BENZODIAZEPINES SCREEN URINE POSITIVE (NEGATIVE); CANNABINOID SCREEN, URINE NEGATIVE (NEGATIVE); COCAINE SCREEN URINE NEGATIVE (NEGATIVE); METHADONE STAT NEGATIVE (NEGATIVE); METHAMPHETAMINE SCREEN URINE S NEGATIVE (NEGATIVE); OPIATE SCREEN URINE NEGATIVE (NEGATIVE); OXYCODONE STAT POSITIVE (NEGATIVE); PROPOXYPHENE STAT NEGATIVE (NEGATIVE); TRICYCLIC ANTIDEPRESSANTS SCRE NEGATIVE (NEGATIVE)
[2018-05-02 20:26] LABS: CALCIUM 7.7 MG/DL (8.5-10.1); CREATININE SERUM 1.97 MG/DL (0.60-1.30)
--- NOTE | 2018-05-02 20:57 | NUR ---
Timeline note: Around 1230 patient became increasingly restless and uncooperative. DC'd own Arterial LIne. Pulling at other lines, taking off gown. DId not want to stay in bed. [address] very restless. Dr. Mcdermott paged as well as Dr. Iglesias. Orders for Ativan. 1345 Patient still increasingly restless. Attempting to get up. Becoming combative. DrYessi's re paged. 1415 Dr. Iglesias in room. Sedation meds ordered. 4 of Versed and 50 of Fentanyl given. Meds wasted in room in presence of other staff. Patient appears ashen and has had another bloody bowel movement. Notified. 1450 Patient's inner cannula for trach replaced with cuffed cannula by Dr. Jimenez. 1515 Central Line placed by Dr. Jimenez. 1540 Rocha placed by RN 1550 NG in Left nare placed without difficulty. 1600 Patient resting comfortably.
[2018-05-02] MEDS ORDERED: PANTOPRAZOLE 40 MG (PROTONIX) VIAL IV SCH (21:00)
[2018-05-02] MEDS: PANTOPRAZOLE 40 MG (PROTONIX) VIAL IV SCH (21:21)
[2018-05-02] MEDS: PROPOFOL DRIP (ICU) 100 ML IV SCH (21:21)
[2018-05-03] VITALS (40 sets, daily range): BP systolic 56–144; BP diastolic 32–128
[2018-05-03] MEDS: NS IV 1000 ML 1,000 ML IV SCH (00:11)
[2018-05-03] MEDS: NOREPINEPHRINE 4 MG in NS (IVPB) 250 ML IV SCH (00:11)
[2018-05-03 00:49] LABS: HEMOGLOBIN 8.1 G/DL (13.3-17.7)
[2018-05-03] MEDS: PROPOFOL DRIP (ICU) 100 ML IV SCH ×5 (01:05→11:18)
[2018-05-03 01:06] LABS: CALCIUM 7.8 MG/DL (8.5-10.1); CREATININE SERUM 1.56 MG/DL (0.60-1.30); POTASSIUM 3.4 MMOL/L (3.6-5.0)
[2018-05-03] MEDS: POTASSIUM CL 10MEQ/50ML IVPB 50 ML IV SCH (01:06)
--- NOTE | 2018-05-03 01:37 | OPERATIVE REPORT ---
DATE OF SERVICE: 05/02/2018 ATTENDING PRIMARY CARE PHYSICIAN: Dallas Wadsworth DO. ADMITTING PHYSICIAN: Jayesh Mota MD. PREPROCEDURE DIAGNOSIS: Anemia, gastrointestinal bleed. POSTPROCEDURE DIAGNOSIS: Anemia, gastrointestinal bleed. PROCEDURE: Placement of left subclavian central venous catheter. SURGEON: Thor Jimenez MD. BLANKET WINDER HELPER: Geovany Wang APRN. ANESTHESIA: General. ESTIMATED BLOOD LOSS: Local. FINDINGS: The patient sedated on propofol and has a tracheostomy. DISPOSITION: The patient tolerated the procedure well. INDICATIONS: The patient is a 52-year-old male who we have seen before in the past. This gentleman has a multitude of medical problems including coronary artery disease, hypertension, hypercholesterolemia and is status post 4-vessel open heart coronary artery bypass approximately in 2006. 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 He eventually underwent a plication of the vocal cords; however, he also underwent placement for a tracheostomy, which he currently has. 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 He was scheduled today for an excision as well as a full thickness graft placement; however, he presented to the Emergency Department with weakness and maroon-colored stools. Since admission, he has had several other maroon-colored stools and has had an NG placed with again a maroon colored blood identified. He is also found to be anemic with a hemoglobin of 6.1. DESCRIPTION OF PROCEDURE: The chest and neck were prepped and draped in standard surgical fashion. A 1% lidocaine was used to anesthetize the left subclavian region. The left subclavian vein was then cannulated withdrawing the venous blood. The guidewire was then inserted without any resistance. The cannulating needle removed and a skin incision made using 11 blade. A tract was then created using a venous dilator and triple lumen central venous catheter was then placed over the guidewire using the Seldinger technique. The guidewire removed and all three ports bee venous blood and saline pushed in without any resistance. The catheter was then sutured to the skin using 3-0 silk sutures, cleaned and covered with Op-Site. The patient tolerated the procedure well. The post-procedure chest x-ray appeared normal placement of the superior vena cava/right atrial junction. No pneumothorax identified. The catheter may be accessed and used at any time. Job ID: [id number] DocumentID: [id number] Dictated Date: 05/02/2018 15:51:04 Biophysics Scientist Date: 05/03/2018 01:36:22 Dictated By: THOR JIMENEZ MD
[2018-05-03] MEDS ORDERED: NS IV 1000 ML 1,000 ML IV SCH (02:15)
[2018-05-03 03:15] LABS: ABG BASE EXCESS -1.9 MMOL/L (-2.5-2.5); ABG OXYGEN SATURATION 97 % (94-100); ABG PCO2 42 MMHG (35-45); ABG PH 7.35 (7.37-7.43); ABG PO2 77 MMHG (79-93); ABG TCO2 24.2 MMOL/L (21.0-31.0)
[2018-05-03 03:16] LABS: ALLENS TEST YES-POS; INSPIRED O2 25%; PATIENT TEMP 97.4; VENTILATOR YES
[2018-05-03 03:31] LABS: BASOPHILS # (AUTO) 0.1 10^3/uL (0.0-0.1); BASOPHILS % (AUTO) 0 % (0-10); EOSINOPHILS # (AUTO) 0.1 10^3/uL (0.0-0.3); EOSINOPHILS % (AUTO) 1 % (0-10); HEMATOCRIT 27 % (40-54); HEMOGLOBIN 8.4 G/DL (13.3-17.7); LYMPHOCYTES % (AUTO) 17 % (12-44); MEAN CORPUSCULAR HEMOGLOBIN 24 PG (25-34); MEAN CORPUSCULAR HGB CONC 32 G/DL (32-36); MEAN CORPUSCULAR VOLUME 77 FL (80-99); MONOCYTES % (AUTO) 8 % (0-12); NEUTROPHILS # (AUTO) 8.8 X 10^3 (1.8-7.8); NEUTROPHILS % (AUTO) 74 % (42-75); PLATELET COUNT 155 10^3/uL (130-400); RED CELL DISTRIBUTION WIDTH 19.3 % (10.0-14.5); WHITE BLOOD COUNT 11.9 10^3/uL (4.3-11.0)
[2018-05-03 04:08] LABS: CALCIUM 7.8 MG/DL (8.5-10.1); CREATININE SERUM 1.47 MG/DL (0.60-1.30); MAGNESIUM 1.9 MG/DL (1.8-2.4); PHOSPHORUS 2.6 MG/DL (2.3-4.7); POTASSIUM 3.9 MMOL/L (3.6-5.0)
--- NOTE | 2018-05-03 05:23 | Pulmonary Progress Note ---
Subjective Time Seen by a Provider: 07:06 Subjective/Events-last exam Pt is sedated on vent. Sepsis Event Evaluation Height, Weight, BMI Height: 6'1.00" Weight: 240lbs. 0.0oz. 108.656879lq; 31.7 BMI Method:Estimated Focused Exam Lactate Level 05/02/18 09:30: Lactic Acid Level 2.54*H 05/02/18 15:14: Lactic Acid Level 4.43*H 05/02/18 17:22: Lactic Acid Level 1.27 Exam Exam Vital Signs Date Time Temp Pulse Resp B/P (MAP) Pulse Ox O2 Delivery O2 Flow Rate FiO2 05/03/18 04:53 97.5 99 26 123/71 100 Mechanical Ventilator 30.00 05/03/18 04:00 95 19 117/59 (78) 98 Mechanical Ventilator 21.00 05/03/18 04:00 100 Mechanical Ventilator 25 05/03/18 03:00 99 23 141/60 (87) 99 Mechanical Ventilator 30.00 05/03/18 02:45 99 26 100 25 05/03/18 02:14 97.5 96 18 118/67 100 Mechanical Ventilator 25 05/03/18 02:00 93 16 118/67 (84) 100 Mechanical Ventilator 30.00 05/03/18 01:05 97.0 92 17 127/66 100 Mechanical Ventilator 30.00 05/03/18 01:00 90 15 114/63 (80) 100 Mechanical Ventilator 30.00 05/03/18 01:00 92 05/03/18 00:08 97.0 92 17 127/66 100 Mechanical Ventilator 25 05/03/18 00:01 100 Mechanical Ventilator 25 05/03/18 00:00 97.0 05/03/18 00:00 92 15 127/66 (86) 100 Mechanical Ventilator 30.00 05/02/18 23:52 97.0 91 18 127/66 100 Mechanical Ventilator 25 05/02/18 23:32 97.0 88 18 130/67 100 Mechanical Ventilator 25 05/02/18 23:00 79 22 127/65 (85) 100 Mechanical Ventilator 30.00 05/02/18 22:11 81 21 100 40 05/02/18 22:00 80 24 111/63 (79) 100 Mechanical Ventilator 30.00 05/02/18 21:50 97.4 78 16 101/56 100 Mechanical Ventilator 30 05/02/18 21:34 97.0 73 16 114/61 100 Mechanical Ventilator 30 05/02/18 21:21 97.1 75 16 82/45 100 Mechanical Ventilator 30.00 05/02/18 21:11 Mechanical Ventilator 30.00 05/02/18 21:05 97.1 75 16 82/45 100 Mechanical Ventilator 30 05/02/18 21:00 75 18 81/47 (58) 100 Mechanical Ventilator 40.00 05/02/18 20:33 79 16 100 40 05/02/18 20:00 100 Mechanical Ventilator 40 05/02/18 20:00 80 19 106/59 (75) 100 Mechanical Ventilator 40.00 05/02/18 19:40 97.5 80 16 107/57 (74) 100 Mechanical Ventilator 40.00 05/02/18 19:06 84 05/02/18 19:00 85 15 107/44 (65) 100 Mechanical Ventilator 40.00 05/02/18 18:35 87 14 100 40 05/02/18 18:23 103/47 05/02/18 18:17 97.0 82 10 103/47 100 Mechanical Ventilator 40 05/02/18 18:00 85 19 98/49 (65) 100 Mechanical Ventilator 40.00 05/02/18 17:00 86 14 139/49 (79) 100 Trach Collar 40.00 05/02/18 16:50 114/51 05/02/18 16:27 Mechanical Ventilator 40.00 05/02/18 16:22 85 23 100 40 05/02/18 16:00 Room Air 05/02/18 16:00 92 11 68/44 (52) 100 Mechanical Ventilator 50.00 05/02/18 15:00 106 19 67/31 (43) 96 Trach Collar 05/02/18 14:50 87 22 100 50 05/02/18 14:00 113 20 Trach Collar 05/02/18 14:00 Room Air 05/02/18 13:16 120 05/02/18 13:00 110 8 91/66 (74) 100 Trach Collar 91/66 (74) 05/02/18 12:00 105 12 100 05/02/18 12:00 Room Air 05/02/18 11:00 98 20 99/51 (67) 88 05/02/18 10:30 106 14 112/41 (64) 05/02/18 10:15 98 101/41 (61) 05/02/18 10:00 98 21 106/59 (75) 97 05/02/18 09:40 93 77/41 (53) 93 05/02/18 09:30 95 72/33 (46) 94 05/02/18 09:30 Room Air 05/02/18 09:25 96 14 92/38 (56) 99 05/02/18 09:19 96 05/02/18 09:10 103 106/67 (80) 05/02/18 08:10 97.6 89 15 96/57 (70) 100 Room Air I & O 05/03/18 07:00 Intake Total 6080 ml Output Total 1400 ml Balance 4680 ml Height & Weight Height: 6'1.00" Weight: 240lbs. 0.0oz. 108.426416le; 31.7 BMI Method:Estimated General Appearance: WD/WN, Severe Distress, Other (sedated and intubated) HEENT: Other (tracheostomy, sedated) Neck: Other (tracheostomy) Respiratory: No Accessory Muscle Use, No Respiratory Distress, Decreased Breath Sounds, Rhonci Cardiovascular: Regular Rate, Rhythm, Systolic Murmur Capillary Refill: Less Than 3 Seconds Extremity: Non Tender, No Calf Tenderness, Pedal Edema Neurologic/Psychiatric: Other (sedated and intubated) Skin: Normal Color, Warm/Dry Lymphatic: No Adenopathy Results Lab Laboratory Tests 05/02/18 05:36 05/02/18 09:30 05/02/18 15:14 05/02/18 17:58 05/02/18 20:00 05/03/18 00:30 05/03/18 03:20 Assessment/Plan Assessment/Plan Chronic respiratory failure with tracheostomy -precedex -- start -Haldol -Obtain old records -Oxygen -Monitor Hyperglycemia -- HHNK -start insulin gtt -- now off -24units of Levemir -SSI C Hypotension - improved Psychosis -risperadol, PRN haldol Hypernatremia -CHange IVF to 1/2 NS AKF -IVF -Monitor GIB -- lower GIB vs major upper GIB ( BUN is 101) -Protonix BID IV -Possible EGD today -Check H&H Q 6 -IVF Elevated troponin - probably secondary to hypotension ACOSTA FRAGA DO May 03, 2018 05:23
[2018-05-03] MEDS: PIPERACILLIN/TAZOBACTAM (BULK) 4.5 GM in NS (IVPB) 100 ML IV SCH ×3 (05:43→22:59)
[2018-05-03] MEDS: VANCOMYCIN INJECTION 1,500 MG in NS IV 500 ML 500 ML IV SCH (05:43)
[2018-05-03] MEDS: 1/2 NS IV SOLUTION 1,000 ML IV SCH ×3 (05:49→23:00)
[2018-05-03] MEDS: risperiDONE 1 MG (RisperDAL) TAB PO SCH ×2 (05:49→20:38)
[2018-05-03] MEDS ORDERED: inSUlin ASPART (NovoLOG) 1 UNIT/0.01 ML (CHARGE PER UNIT) SC SCH (06:00)
--- NOTE | 2018-05-03 07:15 | Diagnostic Imaging Report ---
Examination: Portable AP chest Indication: Hypotension. Comparison: Multiple priors, most recent performed on 05/02/2018. Findings: Evaluation is limited secondary to suboptimal technique. Low lung volumes are demonstrated. There is unchanged marked cardiomegaly. There is mild elevation of right hemidiaphragm. No focal consolidation is demonstrated. There is continued central vascular prominence, without overt edema. No pneumothorax or large pleural effusion. Tracheostomy tube remains in place. Left subclavian central venous catheter remains in place, with distal tip overlying the SVC. Distal tip of enteric tube is not well seen, however, appears to be unchanged. No acute osseous abnormality is identified. Sternotomy wires appear intact. Impression: No significant change from prior. Lungs remain clear. Support lines and tubes remain in place. Unchanged marked cardiomegaly. Dictated by: Dictated on workstation # [id number]
[2018-05-03 07:29] LABS: CALCIUM 7.7 MG/DL (8.5-10.1); CREATININE SERUM 1.43 MG/DL (0.60-1.30); MAGNESIUM 1.7 MG/DL (1.8-2.4); POTASSIUM 3.9 MMOL/L (3.6-5.0)
--- NOTE | 2018-05-03 07:31 | Progress Note-Hospitalist ---
Subjective HPI/CC On Admission Date Seen by Provider: May 03, 2018 Time Seen by Provider: 07:25 Pt is a 52yoCM with a PMH of IDDMII, PVD, trach dependency from vocal cord paralysis who presented to the ER due elevated blood sugar. He is unable to provide any history due to altered mentation but his fiance is at bedside who helps fill in some details. reported he was normal 2 days ago and when she returned home from work at 4pm yesterday he was already asleep. She did not think much of this but she awoke this morning at 230am and he seemed "out of it " so she checked his blood sugar and it read over 600 so she brought him to the ER. He was found to have a BS of >900 and was hypotensive on arrival. He also had an CARLIN with significant uremia and hyperkalemia. He was transferred here for higher level of care. En route he had a large bloody bowel movement. His fiance is unsure if he had any other bloody bowel movements. Subjective/Events-last exam Pt is sedated and on vent. Unable to provide ROS. Per RN had 3 more bloody BMs overnight but was able to wean off pressors and Hgb stable after 3 units pRBCs. Focused Exam Lactate Level 05/02/18 09:30: Lactic Acid Level 2.54*H 05/02/18 15:14: Lactic Acid Level 4.43*H 05/02/18 17:22: Lactic Acid Level 1.27 Objective Exam Vital Signs Vital Signs Date Time Temp Pulse Resp B/P (MAP) Pulse Ox O2 Delivery O2 Flow Rate FiO2 05/03/18 06:30 97 26 99 21 05/03/18 06:00 124/70 (88) Mechanical Ventilator 21.00 05/03/18 04:53 97.5 Capillary Refill : Less Than 3 Seconds General Appearance: Chronically ill, Obese, Other (sedated and on vent) HEENT: Other (tracheostomy, sedated) Neck: Other (tracheostomy) Respiratory: No Accessory Muscle Use, Rhonci; No Wheezing Cardiovascular: Regular Rate, Rhythm, Normal Peripheral Pulses, Systolic Murmur Gastrointestinal: Normal Bowel Sounds, Non Tender, Soft Genital/Rectal: Other (benson in place) Back: Normal Inspection Extremity: No Pedal Edema, Other (wound between 3rd and 4th digits of right foot) Neurologic/Psychiatric: Other (sedated) Skin: Tattoos/Piercings Lymphatic: No Adenopathy Results/Procedures Lab Laboratory Tests 05/02/18 09:30 05/02/18 15:14 05/02/18 17:58 05/02/18 20:00 05/03/18 00:30 05/03/18 03:20 Patient resulted labs reviewed. Imaging: Reviewed Imaging Report Assessment/Plan Assessment and Plan Assess & Plan/Chief Complaint GI Bleed with shock Critical Care Critically Ill Patient Diagnosis/Problems Diagnosis/Problems (1) GI bleed Status: Acute Assessment & Plan: Hgb norbert of 6.1 yesterday now s/p 3 units pRBCs with now stable hemoglobin of 8.4 Surgery consulted, appreciate recs Continue PPI Likely upper GI bleed, per notes possible scope today? Hold blood thinners Qualifiers: GI bleed type/associated pathology: unspecified gastrointestinal hemorrhage type Qualified Codes: K92.2 - Gastrointestinal hemorrhage, unspecified (2) Shock Assessment & Plan: Hypovolemic from GI Bleed Continue IVF Weaned off pressors overnight (3) Acute respiratory failure Assessment & Plan: Due to altered mentation On vent Pulm consulted, appreciate recs Qualifiers: Respiratory failure complication: unspecified whether with hypoxia or hypercapnia Qualified Codes: J96.00 - Acute respiratory failure, unspecified whether with hypoxia or hypercapnia (4) Acute kidney failure Status: Acute Assessment & Plan: Creatinine 1.47 with improving uremia Continue IVF trend Qualifiers: Acute renal failure type: unspecified Qualified Codes: N17.9 - Acute kidney failure, unspecified (5) HHS (hypothenar hammer syndrome) Status: Acute Assessment & Plan: Not in DKA Titrated off insulin gtt overnight Now has basal insulin and SSI for control A1c 13.8 (6) Lactic acidosis Status: Resolved Assessment & Plan: Likely due to hypotension, does not appear to be related to sepsis trend Continue IVF Resolution Date/Time: 05/03/18 @ 07:31 (7) Tracheostomy present Assessment & Plan: Trach care Pulm consulted, appreciate recs (8) Altered mental status Assessment & Plan: likely metabolic encephalopathy from uremia No focal deficits but if does not improve consider CT head Qualifiers: Altered mental status type: delirium Qualified Codes: R41.0 - Disorientation, unspecified (9) Hyperkalemia Status: Acute Assessment & Plan: Now resolved (10) Elevated troponin Status: Acute Assessment & Plan: Troponin negative here Consult cardiology, appreciate recs (11) Wound, open, toe Assessment & Plan: Wound care consulted XR reveals osteomyelitis Continue Vanc/Zosyn appreciate recs Qualifiers: Encounter type: initial encounter Qualified Codes: S91.109A - Unspecified open wound of unspecified toe(s) without damage to nail, initial encounter (12) CAD (coronary artery disease) Assessment & Plan: Cardiology consulted, appreciate recs History of reports CABG x4 per fiance Qualifiers: Coronary Disease-Associated Artery/Lesion type: bypass graft [place] vs. transplanted heart: [place] heart Associated angina: angina presence unspecified Qualified Codes: I25.810 - Atherosclerosis of coronary artery bypass graft(s) without angina pectoris Clinical Quality Measures DVT/VTE Risk/Contraindication: Risk Factor Score Per Nursin RFS Level Per Nursing on Admit: 4+=Very High ELAINA MCLEOD MD May 03, 2018 07:31
--- NOTE | 2018-05-03 07:33 | Cardiology Progress Note ---
Subjective Date Seen by Provider: May 03, 2018 Time Seen by Provider: 07:29 Subjective/Events-last exam patient is sedated and intubated Review of Systems General: Other (sedated and intubated, unable to provide review of systems) Focused Exam Lactate Level 05/02/18 09:30: Lactic Acid Level 2.54*H 05/02/18 15:14: Lactic Acid Level 4.43*H 05/02/18 17:22: Lactic Acid Level 1.27 Objective-Cardiology Exam Last Set of Vital Signs Vital Signs 05/03/18 05/03/18 05/03/18 04:53 06:00 06:30 Temp 97.5 Pulse 97 Resp 26 B/P (MAP) 124/70 (88) Pulse Ox 99 O2 Delivery Mechanical Ventilator O2 Flow Rate 21.00 FiO2 21 Capillary Refill : Less Than 3 Seconds I&O Intake and Output 05/03/18 00:00 Intake Total 5830 ml Output Total 600 ml Balance 5230 ml Intake Oral 0 ml IV Total 5830 ml Output Urine Total 600 ml Daily Weight Change No General: Other (sedated and intubated) HEENT: Atraumatic Neck: Supple Lungs: Other (bilateral rhonchi) Heart: Normal S1, Normal S2, Other (bigeminy) Abdomen: Normal Bowel Sounds, Soft, No Tenderness Extremities: No Clubbing, Other (trace edema) Skin: No Rashes Neuro: Other (sedated and intubated) Results Lab Laboratory Tests 05/02/18 09:30 05/02/18 15:14 05/02/18 17:58 05/02/18 20:00 05/03/18 00:30 05/03/18 03:20 A/P-Cardiology Admission Diagnosis Acute respiratory failure GI bleed Hypovolemic shock Coronary artery disease Assessment/Plan Acute on chronic respiratory failure, history of tracheostomy after vocal cord injury, currently ventilator dependent Acute on chronic renal failure, secondary to hypovolemia and acute tubular necrosis. Continue with blood transfusion and monitor blood pressure GI bleed, status post transfusion, will need upper and lower scope. Continue with transfusion and monitor H&H Hypotensive shock, hypovolemia, continue with volume replacement, continue to monitor blood pressure Coronary artery disease, history of CABG 4 done in 2008 with paralyzed vocal cord and multiple throat surgeries for removal of vocal cord resulted in tracheostomy in 2008. Frequent premature ventricular contractions, ventricular bigeminy, unable to tolerate beta blockers due to the hypotension, continue to monitor Acute psychosis, currently on Precedex, once we can taper down the sedation and his blood pressure is better I would initiate beta dickson Peripheral arterial disease by history Hyperglycemia, history of type II diabetes. Admitted with blood sugar around 900, better control at this time. Continue to monitor Chronic pain syndrome, osteoarthritis History of testicular hypofunction Gastroesophageal reflux disease Anxiety Clinical Quality Measures DVT/VTE Risk/Contraindication: Risk Factor Score Per Nursin RFS Level Per Nursing on Admit: 4+=Very High OSMAR JONES MD May 03, 2018 07:32
--- NOTE | 2018-05-03 09:52 | CONSULTATION REPORT ---
DATE OF SERVICE: 05/02/2018 ATTENDING PHYSICIAN: Dr. Wadsworth HISTORY OF PRESENT ILLNESS: The patient is a 52-year-old male who was seen by us a week ago for a lesion of the right third finger on the dorsal aspect. 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 He presented to [place] emergency room this morning due to an elevated blood sugar. He did have altered mentation; however, there was some information that was able to be provided by his fiancee who was at bedside. He does have a history of insulin-dependent type 2 diabetes, peripheral vascular disease, coronary artery disease, COPD. His fiancee did report that he was normal 2 days ago when she returned home from work yesterday that he was already asleep. She reports that she woke this morning around 2:30 a.m. and he did seem to be out. She checked his blood sugar and reports that this read over 600, so she took him to the ER. At the ER, he was found to have a blood sugar greater than 900 and he was hypotensive on arrival. He was also found to have acute kidney injury with significant uremia and hyperkalemia. He was then transferred to [facility] in [place]. However, en route, he did have a large bloody bowel movement. It was also reported by the nurses that he has had maroon-colored stools since arrival. The patient is currently unresponsive and is sedated. PAST MEDICAL HISTORY: BPH, testicular hypofunction, anxiety, gastroesophageal reflux disease, peripheral vascular disease, coronary artery disease, hypertension, type 2 diabetes, chronic pain syndrome, osteoarthritis, vitamin D deficiency, COPD. PAST SURGICAL HISTORY: Quadruple bypass in 2008, right leg repair of artery around 2018, tracheostomy due to vocal cord paralysis from his bypass surgery in 2008, multiple surgeries and removal of his vocal cords. ALLERGIES: DUONEB, MORPHINE, PENICILLIN. MEDICATIONS: Wellbutrin 300 mg daily, Lyrica 150 mg t.i.d., OxyContin 300 mg b.i.d., alprazolam 1 mg q.i.d., oxycodone 20 mg 1 every 6 to 8 hours p.r.n., Nitrostat 0.4 mg p.r.n., sertraline 50 mg daily, metolazone 10 mg daily, Movantik 25 mg daily, Bevespi aerosphere 9 mcg/4.8 mcg 2 puffs b.i.d., testosterone 200 mg 2 mL every two weeks, Xarelto 2.5 mg b.i.d., Losartan 100 mg half tablet daily was stopped, atorvastatin 80 mg daily, ropinirole 2 mg at bedtime, glimepiride 4 mg b.i.d., Lasix 20 mg daily p.r.n., Farxiga 5 mg daily, isosorbide mononitrate ER 30 mg daily, Singulair 10 mg daily, Silvadene 1% topical cream daily, hydroxyzine 50 mg, propranolol ER 60 mg daily, prednisone 20 mg as instructed, multivitamin daily, Levemir 30 units in the a.m. and 60 units in the p.m., Zofran 8 mg q.i.d., chlorthalidone 25 mg daily, vitamin D3 5000 units daily, Chantix 1 mg daily and aspirin 325 mg daily. SOCIAL HISTORY: Positive for smoke for 40 pack years. Social for alcohol. FAMILY HISTORY: Mother with throat cancer, diabetes, myocardial infarction. Father with prostate cancer, diabetes, myocardial infarction, hypertension sister x3 with diabetes. PHYSICAL EXAMINATION: VITAL SIGNS: Blood pressure is 112/41, pulse 106, respirations 14, pulse ox 97% on room air. REVIEW OF SYSTEMS GENERAL: Well nourished, chronically ill male in no acute distress. He is not experiencing any shortness of breath or difficulty breathing. This is a well-nourished, chronically ill male in acute distress. He is currently unresponsive and not able to room air and unable to obtain any information from the patient. He is having maroon-colored stools. PHYSICAL EXAMINATION: CHEST: Clear breath sounds bilaterally. HEART: Regular, no murmurs. EXTREMITIES: No lower extremity edema. Negative Homans sign. There is a right foot wound between the third and fourth digit. HEENT: No scleral icterus. No cervical adenopathy. He does have a tracheostomy in place. ABDOMEN: Soft, nontender, nondistended. SKIN: Warm, dry, pink. He does have hyperkeratotic lesion of the right third finger on the dorsal aspect. This has been biopsied and is consistent with a squamous cell carcinoma in situ. ASSESSMENT AND PLAN: A 52-year-old male who is currently anemic with hemoglobin of 6.1 who also came in with a blood sugar greater than 600 and was found to be hypothenar hammer syndrome, hyperkalemia, hypotension. At this time, we will proceed with medical management and due to his hemoglobin of 6.1, we will proceed with blood transfusions. Once he is medically stable, we will proceed with upper as well as a lower endoscopy. It was also discussed with Dr. Iglesias during exam about proceeding with placing a cuffed trach, which was done at bedside by Dr. Jimenez. We will also proceed with placement of a left subclavian central line. Job ID: [id number] DocumentID: [id number] Dictated Date: 05/02/2018 15:53:52 [employer] Machine Feeder Date: 05/02/2018 22:14:05 Dictated By: KARLA BYRD APRN
[2018-05-03] MEDS: MAGNESIUM 1 GM/100 ML IVPB 100 ML IV SCH ×2 (10:06→12:08)
[2018-05-03] MEDS: PANTOPRAZOLE 40 MG (PROTONIX) VIAL IV SCH ×2 (10:06→20:45)
[2018-05-03] MEDS ORDERED: FLU QUADRIvalent (5+ YOA) 2018-2019 (AFLURIA) 0.5 ML IM ONE (10:45)
[2018-05-03] MEDS: HALOPERIDOL 5 MG/ML (HALDOL) AMP IV PRN (11:04)
--- NOTE | 2018-05-03 11:58 | Progress Note (SOAP) ---
Subjective Date Seen by a Provider: May 03, 2018 Time Seen by a Provider: 11:00 Subjective/Events-last exam on vent/sedated. Hb increase appropriate per units PRBC. no current active bleed. Focused Exam Lactate Level 05/02/18 09:30: Lactic Acid Level 2.54*H 05/02/18 15:14: Lactic Acid Level 4.43*H 05/02/18 17:22: Lactic Acid Level 1.27 Objective Exam Vital Signs Date Time Temp Pulse Resp B/P (MAP) Pulse Ox O2 Delivery O2 Flow Rate FiO2 05/03/18 11:18 127/104 05/03/18 11:16 124/107 05/03/18 10:43 107 31 96 21 05/03/18 10:00 117 31 144/74 (97) 97 Mechanical Ventilator 21.00 05/03/18 09:00 110 27 138/69 (92) 100 Mechanical Ventilator 21.00 05/03/18 08:30 100 Mechanical Ventilator 25 05/03/18 08:19 98.6 05/03/18 08:00 105 38 131/65 (87) 100 Mechanical Ventilator 21.00 05/03/18 07:08 99 05/03/18 07:00 98 28 93/56 (68) 100 Mechanical Ventilator 21.00 05/03/18 06:30 97 26 99 21 05/03/18 06:00 107 14 124/70 (88) 99 Mechanical Ventilator 21.00 05/03/18 05:00 106 23 136/74 (94) 98 Mechanical Ventilator 21.00 05/03/18 04:53 97.5 99 26 123/71 100 Mechanical Ventilator 30.00 05/03/18 04:00 95 19 117/59 (78) 98 Mechanical Ventilator 21.00 05/03/18 04:00 100 Mechanical Ventilator 25 05/03/18 03:00 99 23 141/60 (87) 99 Mechanical Ventilator 30.00 05/03/18 02:45 99 26 100 25 05/03/18 02:14 97.5 96 18 118/67 100 Mechanical Ventilator 25 05/03/18 02:00 93 16 118/67 (84) 100 Mechanical Ventilator 30.00 05/03/18 01:05 97.0 92 17 127/66 100 Mechanical Ventilator 30.00 05/03/18 01:00 90 15 114/63 (80) 100 Mechanical Ventilator 30.00 05/03/18 01:00 92 05/03/18 00:08 97.0 92 17 127/66 100 Mechanical Ventilator 25 05/03/18 00:01 100 Mechanical Ventilator 25 05/03/18 00:00 97.0 05/03/18 00:00 92 15 127/66 (86) 100 Mechanical Ventilator 30.00 05/02/18 23:52 97.0 91 18 127/66 100 Mechanical Ventilator 25 05/02/18 23:32 97.0 88 18 130/67 100 Mechanical Ventilator 25 05/02/18 23:00 79 22 127/65 (85) 100 Mechanical Ventilator 30.00 05/02/18 22:11 81 21 100 40 05/02/18 22:00 80 24 111/63 (79) 100 Mechanical Ventilator 30.00 05/02/18 21:50 97.4 78 16 101/56 100 Mechanical Ventilator 30 05/02/18 21:34 97.0 73 16 114/61 100 Mechanical Ventilator 30 05/02/18 21:21 97.1 75 16 82/45 100 Mechanical Ventilator 30.00 05/02/18 21:11 Mechanical Ventilator 30.00 05/02/18 21:05 97.1 75 16 82/45 100 Mechanical Ventilator 30 05/02/18 21:00 75 18 81/47 (58) 100 Mechanical Ventilator 40.00 05/02/18 20:33 79 16 100 40 05/02/18 20:00 100 Mechanical Ventilator 40 05/02/18 20:00 80 19 106/59 (75) 100 Mechanical Ventilator 40.00 05/02/18 19:40 97.5 80 16 107/57 (74) 100 Mechanical Ventilator 40.00 05/02/18 19:06 84 05/02/18 19:00 85 15 107/44 (65) 100 Mechanical Ventilator 40.00 05/02/18 18:35 87 14 100 40 05/02/18 18:23 103/47 05/02/18 18:17 97.0 82 10 103/47 100 Mechanical Ventilator 40 05/02/18 18:00 85 19 98/49 (65) 100 Mechanical Ventilator 40.00 05/02/18 17:00 86 14 139/49 (79) 100 Trach Collar 40.00 05/02/18 16:50 114/51 3/28/19 16:27 Mechanical Ventilator 40.00 05/02/18 16:22 85 23 100 40 05/02/18 16:00 Room Air 05/02/18 16:00 92 11 68/44 (52) 100 Mechanical Ventilator 50.00 05/02/18 15:00 106 19 67/31 (43) 96 Trach Collar 05/02/18 14:50 87 22 100 50 05/02/18 14:00 113 20 Trach Collar 05/02/18 14:00 Room Air 05/02/18 13:16 120 05/02/18 13:00 110 8 91/66 (74) 100 Trach Collar 91/66 (74) 05/02/18 12:00 105 12 100 05/02/18 12:00 Room Air I & O 05/03/18 07:00 Intake Total 6280 ml Output Total 1750 ml Balance 4530 ml Capillary Refill : Less Than 3 Seconds General Appearance: No Apparent Distress HEENT: PERRL/EOMI Neck: Full Range of Motion Respiratory: Chest Non Tender, Normal Breath Sounds Cardiovascular: Regular Rate, Rhythm Gastrointestinal: normal bowel sounds, non tender, soft Extremity: Normal Capillary Refill Neurologic/Psychiatric: Alert, Oriented x3 Skin: Normal Color Lymphatic: No Adenopathy Results Lab Laboratory Tests 05/02/18 13:22: Glucometer > 600*H 05/02/18 14:38: Glucometer 471*H 05/02/18 15:14: Hemoglobin 6.1#*L, Hematocrit 21L, Glucose Level 398H, Lactic Acid Level 4.43*H , Ammonia 22 05/02/18 15:24: Glucometer 436*H 05/02/18 16:30: Glucometer 413*H 05/02/18 17:22: Lactic Acid Level 1.27 05/02/18 17:38: Glucometer 446*H 05/02/18 17:58: Hemoglobin 6.1*L, Hematocrit 21L, Sodium Level 142, Potassium Level 4.0, Chloride Level 112#H, Carbon Dioxide Level 23, Anion Gap 7, Blood Urea Nitrogen 99H, Creatinine 1.92H, Estimat Glomerular Filtration Rate 37, BUN/Creatinine Ratio 52, Glucose Level 408*H, Calcium Level 8.0L, Triglycerides Level 210H 05/02/18 19:45: Glucometer 428*H 05/02/18 20:00: Urine Color YELLOW, Urine Clarity CLEAR, Urine pH 5, Urine Specific [place] 1.010L, Urine Protein NEGATIVE, Urine Glucose (UA) 4+H, Urine Ketones NEGATIVE, Urine Nitrite NEGATIVE, Urine Bilirubin NEGATIVE, Urine Urobilinogen NORMAL, Urine Leukocyte Esterase NEGATIVE, Urine RBC (Auto) NEGATIVE, Urine RBC 0-2, Urine WBC NONE, Urine Squamous Epithelial Cells 0-2, Urine Crystals NONE, Urine Bacteria NEGATIVE, Urine Casts NONE, Urine Mucus NEGATIVE, Urine Culture Indicated NO, Sodium Level 144, Potassium Level 4.0, Chloride Level 112H, Carbon Dioxide Level 22, Anion Gap 10, Blood Urea Nitrogen 95H, Creatinine 1.97H , Estimat Glomerular Filtration Rate 36, BUN/Creatinine Ratio 48, Glucose Level 344H, Calcium Level 7.7L, Urine Opiates Screen NEGATIVE, Urine Oxycodone Screen POSITIVEH, Urine Methadone Screen NEGATIVE, Urine Propoxyphene Screen NEGATIVE, Urine Barbiturates Screen NEGATIVE, Ur Tricyclic Antidepressants Screen NEGATIVE , Urine Phencyclidine Screen NEGATIVE, Urine Amphetamines Screen NEGATIVE, Urine Methamphetamines Screen NEGATIVE, Urine Benzodiazepines Screen POSITIVEH, Urine Cocaine Screen NEGATIVE, Urine Cannabinoids Screen NEGATIVE 05/02/18 20:46: Glucometer 353H 05/02/18 21:40: Glucometer 306H 05/02/18 22:41: Glucometer 293H 05/02/18 23:38: Glucometer 269H 05/03/18 00:30: Hemoglobin 8.1#L, Hematocrit 26L, Sodium Level 148H, Potassium Level 3.4L, Chloride Level 117H, Carbon Dioxide Level 21, Anion Gap 10, Blood Urea Nitrogen 80H, Creatinine 1.56H, Estimat Glomerular Filtration Rate 47, BUN/Creatinine Ratio 51, Glucose Level 99, Calcium Level 7.8L 05/03/18 00:39: Glucometer 113H 05/03/18 01:13: Glucometer 174H 05/03/18 02:00: Glucometer 161H 05/03/18 03:05: Blood Gas Puncture Site R RAD, Blood Gas Patient Temperature 97.4, Arterial Blood pH 7.35L, Arterial Blood Partial Pressure CO2 42, Arterial Blood Partial Pressure O2 77L, Arterial Blood HCO3 23, Arterial Blood Total CO2 24.2, Arterial Blood Oxygen Saturation 97, Arterial Blood Base Excess -1.9, Devin Test YES-POS, Blood Gas Ventilator Setting YES, Blood Gas Inspired Oxygen 25% 05/03/18 03:17: Glucometer 146H 05/03/18 03:20: White Blood Count 11.9H, Red Blood Count 3.48L, Hemoglobin 8.4L, Hematocrit 27L , Mean Corpuscular Volume 77L, Mean Corpuscular Hemoglobin 24L, Mean Corpuscular Hemoglobin Concent 32, Red Cell Distribution Width 19.3H, Platelet Count 155, Mean Platelet Volume 13.0H, Neutrophils (%) (Auto) 74, Lymphocytes (% ) (Auto) 17, Monocytes (%) (Auto) 8, Eosinophils (%) (Auto) 1, Basophils (%) ( Auto) 0, Neutrophils # (Auto) 8.8H, Lymphocytes # (Auto) 2.0, Monocytes # (Auto ) 1.0, Eosinophils # (Auto) 0.1, Basophils # (Auto) 0.1, Sodium Level 147H, Potassium Level 3.9, Chloride Level 117H, Carbon Dioxide Level 20L, Anion Gap 10 , Blood Urea Nitrogen 74H, Creatinine 1.47H, Estimat Glomerular Filtration Rate 50, BUN/Creatinine Ratio 50, Glucose Level 133H, Calcium Level 7.8L, Phosphorus Level 2.6, Magnesium Level 1.9 05/03/18 04:26: Glucometer 163H 05/03/18 07:00: Sodium Level 147H, Potassium Level 3.9, Chloride Level 116H, Carbon Dioxide Level 18L, Anion Gap 13, Blood Urea Nitrogen 67H, Creatinine 1.43H, Estimat Glomerular Filtration Rate 52, BUN/Creatinine Ratio 47, Glucose Level 209H, Calcium Level 7.7L, Magnesium Level 1.7L 05/03/18 10:49: Beta-Hydroxybutyrate (Chem panel) 3.26H Microbiology 05/02/18 Gram Stain, Resulted Pending 05/02/18 Sputum Culture - Preliminary, Resulted Assessment/Plan Assessment/Plan Assess & Plan/Chief Complaint GI bleed, hx vocal cord paralysis and permanent trach. has not had colonoscopy before in past. initial NGT out appeared some mixed blood. will proceed with EGD and Colonoscopy on this admisssion. if otherwise stable will also proceed with originally scheduled excision SCC right 4th digit with FTSG. Clinical Quality Measures DVT/VTE Risk/Contraindication: Risk Factor Score Per Nursin RFS Level Per Nursing on Admit: 4+=Very High THOR PERERA MD May 03, 2018 11:58
[2018-05-03] MEDS ORDERED: MAGNESIUM 1 GM/100 ML IVPB 100 ML IV ONE ×2 (12:03→14:06)
[2018-05-03 12:30] LABS: HEMOGLOBIN 7.7 G/DL (13.3-17.7)
[2018-05-03 12:50] LABS: CREATININE SERUM 1.49 MG/DL (0.60-1.30); POTASSIUM 3.9 MMOL/L (3.6-5.0)
[2018-05-03 12:51] LABS: ALBUMIN 2.8 GM/DL (3.2-4.5); CALCIUM 7.8 MG/DL (8.5-10.1); MAGNESIUM 1.9 MG/DL (1.8-2.4)
[2018-05-03] MEDS: inSUlin ASPART (NovoLOG) 1 UNIT/0.01 ML (CHARGE PER UNIT) SC SCH ×3 (13:08→23:10)
[2018-05-03] MEDS: DEXMEDETOMIDINE 1,000 MCG/NS 250 ML IV SCH ×2 (13:11)
[2018-05-03 18:11] LABS: HEMOGLOBIN 7.5 G/DL (13.3-17.7)
[2018-05-03] MEDS: fentaNYL INJECTION 1,250 MCG in NS (IVPB) 250 ML IV SCH ×2 (19:44→23:41)
[2018-05-04] VITALS (30 sets, daily range): BP systolic 86–140; BP diastolic 48–93
[2018-05-04] MEDS: PROPOFOL DRIP (ICU) 100 ML IV SCH ×2 (00:07→04:48)
[2018-05-04] MEDS: NOREPINEPHRINE 4 MG in NS (IVPB) 250 ML IV SCH (00:21)
[2018-05-04 00:30] LABS: HEMOGLOBIN 6.9 G/DL (13.3-17.7)
[2018-05-04] MEDS ORDERED: NS IV 500 ML 500 ML ONE (01:06)
[2018-05-04] MEDS: DEXMEDETOMIDINE 1,000 MCG/NS 250 ML IV SCH ×6 (01:39→21:38)
[2018-05-04 02:37] LABS: ABG BASE EXCESS -0.3 MMOL/L (-2.5-2.5); ABG OXYGEN SATURATION 97 % (94-100); ABG PCO2 37 MMHG (35-45); ABG PH 7.42 (7.37-7.43)
[2018-05-04 02:45] LABS: ABG PO2 86 MMHG (79-93); ALLENS TEST POSITIVE; INSPIRED O2 21% VENT; PATIENT TEMP 96.9; VENTILATOR YES
[2018-05-04 03:16] LABS: BASOPHILS # (AUTO) 0.1 10^3/uL (0.0-0.1); BASOPHILS % (AUTO) 1 % (0-10); EOSINOPHILS # (AUTO) 0.2 10^3/uL (0.0-0.3); EOSINOPHILS % (AUTO) 3 % (0-10); HEMATOCRIT 24 % (40-54); HEMOGLOBIN 7.6 G/DL (13.3-17.7); LYMPHOCYTES # (AUTO) 1.5 X 10^3 (1.0-4.0); LYMPHOCYTES % (AUTO) 19 % (12-44); MEAN CORPUSCULAR HEMOGLOBIN 25 PG (25-34); MEAN CORPUSCULAR HGB CONC 32 G/DL (32-36); MEAN CORPUSCULAR VOLUME 78 FL (80-99); MEAN PLATELET VOLUME 11.8 FL (7.4-10.4); MONOCYTES # (AUTO) 0.6 X 10^3 (0.0-1.0); MONOCYTES % (AUTO) 7 % (0-12); NEUTROPHILS # (AUTO) 5.3 X 10^3 (1.8-7.8); NEUTROPHILS % (AUTO) 70 % (42-75); PLATELET COUNT 141 10^3/uL (130-400); RED CELL DISTRIBUTION WIDTH 19.2 % (10.0-14.5); WHITE BLOOD COUNT 7.6 10^3/uL (4.3-11.0)
[2018-05-04 03:34] LABS: CALCIUM 8.1 MG/DL (8.5-10.1); CREATININE SERUM 1.25 MG/DL (0.60-1.30); MAGNESIUM 2.3 MG/DL (1.8-2.4); PHOSPHORUS 2.4 MG/DL (2.3-4.7); POTASSIUM 3.7 MMOL/L (3.6-5.0)
[2018-05-04] MEDS: inSUlin ASPART (NovoLOG) 1 UNIT/0.01 ML (CHARGE PER UNIT) SC SCH ×3 (04:48→17:58)
[2018-05-04] MEDS: VANCOMYCIN INJECTION 1,500 MG in NS IV 500 ML 500 ML IV SCH (05:37)
[2018-05-04] MEDS: PIPERACILLIN/TAZOBACTAM (BULK) 4.5 GM in NS (IVPB) 100 ML IV SCH ×3 (05:37→22:40)
--- NOTE | 2018-05-04 05:56 | Pulmonary Progress Note ---
Subjective Time Seen by a Provider: 06:01 Subjective/Events-last exam Pt required 1 unit of PRBC last night. Sepsis Event Evaluation Height, Weight, BMI Height: 6'1.00" Weight: 240lbs. 0.0oz. [id number]; 31.7 BMI Method:Estimated Focused Exam Lactate Level 05/02/18 09:30: Lactic Acid Level 2.54*H 05/02/18 15:14: Lactic Acid Level 4.43*H 05/02/18 17:22: Lactic Acid Level 1.27 Exam Exam Vital Signs Date Time Temp Pulse Resp B/P (MAP) Pulse Ox O2 Delivery O2 Flow Rate FiO2 05/04/18 05:00 59 23 100/62 (75) 99 Mechanical Ventilator 21.00 05/04/18 04:48 96.6 60 21 95/57 98 Mechanical Ventilator 21.00 05/04/18 04:20 60 22 98 21 05/04/18 04:00 98 Mechanical Ventilator 25 05/04/18 04:00 60 21 95/57 (70) 98 Mechanical Ventilator 21.00 05/04/18 03:44 96.6 60 16 113/66 99 Mechanical Ventilator 21 05/04/18 03:00 60 24 121/67 (85) 98 Mechanical Ventilator 21.00 05/04/18 02:25 62 20 98 21 05/04/18 02:25 62 30 98 21 05/04/18 02:00 62 19 92/52 (65) 97 Mechanical Ventilator 21.00 05/04/18 01:49 96.9 61 16 124/65 98 Mechanical Ventilator 21 05/04/18 01:34 96.6 61 18 123/65 98 Mechanical Ventilator 21 05/04/18 01:00 62 05/04/18 01:00 62 24 129/66 (87) 97 Mechanical Ventilator 21.00 05/04/18 00:07 96.9 66 22 91/55 97 Mechanical Ventilator 21.00 05/04/18 00:00 98 Mechanical Ventilator 25 05/04/18 00:00 66 22 91/55 (67) 97 Mechanical Ventilator 21.00 05/03/18 23:00 66 24 106/62 (77) 96 Mechanical Ventilator 21.00 05/03/18 22:15 66 31 96 21 05/03/18 22:00 68 20 102/57 (72) 99 Mechanical Ventilator 21.00 05/03/18 21:00 68 21 102/54 (70) 98 Mechanical Ventilator 21.00 05/03/18 20:05 71 23 97 21 05/03/18 20:00 70 23 106/57 (73) 96 Mechanical Ventilator 21.00 05/03/18 20:00 98 Mechanical Ventilator 25 05/03/18 19:09 96.9 73 16 96/53 (67) 96 Mechanical Ventilator 21.00 05/03/18 19:00 74 05/03/18 18:45 77 26 98 21 05/03/18 18:00 72 22 108/54 (72) 98 Mechanical Ventilator 21.00 05/03/18 17:00 71 25 111/59 (76) 98 Mechanical Ventilator 21.00 05/03/18 16:08 100 Mechanical Ventilator 25 05/03/18 16:04 97.4 05/03/18 16:00 71 20 101/61 (74) 98 Mechanical Ventilator 21.00 05/03/18 15:00 74 25 98/59 (72) 98 Mechanical Ventilator 21.00 05/03/18 14:44 70 26 98 21 05/03/18 14:00 79 26 100/55 (70) 98 Mechanical Ventilator 21.00 05/03/18 13:17 78 05/03/18 13:00 80 23 99/50 (66) 97 Mechanical Ventilator 21.00 05/03/18 12:30 79 25 96/49 (65) 98 Mechanical Ventilator 21.00 05/03/18 12:15 97.7 05/03/18 12:00 82 25 121/45 (70) 99 Mechanical Ventilator 21.00 05/03/18 12:00 100 Mechanical Ventilator 25 05/03/18 11:45 82 115/48 (70) Mechanical Ventilator 21.00 05/03/18 11:40 82 105/44 (64) Mechanical Ventilator 21.00 05/03/18 11:30 80 86/48 (61) Mechanical Ventilator 21.00 05/03/18 11:25 84 61/41 (48) Mechanical Ventilator 21.00 05/03/18 11:20 82 58/39 (45) Mechanical Ventilator 21.00 05/03/18 11:18 127/104 05/03/18 11:16 124/107 05/03/18 11:15 82 61/32 (42) Mechanical Ventilator 21.00 05/03/18 11:05 87 56/39 (45) Mechanical Ventilator 21.00 05/03/18 11:00 90 15 144/128 (133) 95 Mechanical Ventilator 21.00 05/03/18 10:43 107 31 96 21 05/03/18 10:00 117 31 144/74 (97) 97 Mechanical Ventilator 21.00 05/03/18 09:00 110 27 138/69 (92) 100 Mechanical Ventilator 21.00 05/03/18 08:30 100 Mechanical Ventilator 25 05/03/18 08:19 98.6 05/03/18 08:00 97.8 05/03/18 08:00 105 38 131/65 (87) 100 Mechanical Ventilator 21.00 05/03/18 07:08 99 05/03/18 07:00 98 28 93/56 (68) 100 Mechanical Ventilator 21.00 05/03/18 06:30 97 26 99 21 05/03/18 06:00 107 14 124/70 (88) 99 Mechanical Ventilator 21.00 I & O 05/04/18 07:00 Intake Total 1945 ml Output Total 3450 ml Balance -1505 ml Height & Weight Height: 6'1.00" Weight: 240lbs. 0.0oz. 108.951032ky; 31.7 BMI Method:Estimated General Appearance: Chronically ill, Obese HEENT: PERRL/EOMI; No Scleral Icterus (L), No Scleral Icterus (R) Neck: Other (trach in place) Respiratory: Lungs Clear, No Respiratory Distress Cardiovascular: Regular Rate, Rhythm, No Murmur Capillary Refill: Less Than 3 Seconds Gastrointestinal: normal bowel sounds, non tender, soft Extremity: No Calf Tenderness, No Pedal Edema, Other (right foot wound between 3rd and 4th digit) Neurologic/Psychiatric: Alert, Disoriented Skin: Tattoos/Piercings Lymphatic: No Adenopathy Results Lab Laboratory Tests 05/02/18 09:30 05/02/18 15:14 05/02/18 17:58 05/02/18 20:00 05/03/18 00:30 05/03/18 03:20 05/03/18 07:00 05/03/18 12:20 05/03/18 18:00 05/04/18 00:15 05/04/18 03:10 Assessment/Plan Assessment/Plan Chronic respiratory failure with tracheostomy -precedex -- start -D/C propofol -Wean vent -Haldol -Obtain old records -Oxygen -Monitor Hyperglycemia -- HHNK -24units of Levemir -SSI C Hypotension -Levophed - currently off Psychosis -risperadol, PRN haldol Hypernatremia -CHange IVF to 1/2 NS 100 AKF -IVF -Monitor GIB -- lower GIB vs major upper GIB ( BUN is 101) s/p total 4 units. with 1 unit last night -PT still having Melanotic stools -Protonix BID IV -Surgery is following -Check H&H Q 6 -IVF ACOSTA FRAGA DO May 04, 2018 05:55
[2018-05-04] MEDS: HALOPERIDOL 5 MG/ML (HALDOL) AMP IV PRN ×3 (06:36→20:20)
[2018-05-04] MEDS: 1/2 NS IV SOLUTION 1,000 ML IV SCH ×2 (06:37→17:09)
[2018-05-04] MEDS: risperiDONE 1 MG (RisperDAL) TAB PO SCH ×2 (08:27→20:20)
[2018-05-04] MEDS: PANTOPRAZOLE 40 MG (PROTONIX) VIAL IV SCH ×2 (08:27→20:20)
--- NOTE | 2018-05-04 08:49 | Cardiology Progress Note ---
Subjective Date Seen by Provider: May 04, 2018 Time Seen by Provider: 08:46 Subjective/Events-last exam patient is sedated and intubated, currently off sedation but still unresponsive Review of Systems General: Other (sedated and intubated, unable to provide review of systems) Focused Exam Lactate Level 05/02/18 09:30: Lactic Acid Level 2.54*H 05/02/18 15:14: Lactic Acid Level 4.43*H 05/02/18 17:22: Lactic Acid Level 1.27 Objective-Cardiology Exam Last Set of Vital Signs Vital Signs 05/04/18 05/04/18 05/04/18 06:42 07:00 08:15 Temp 96.4 Pulse 62 Resp 20 B/P (MAP) 112/71 (85) Pulse Ox 100 O2 Delivery Mechanical Ventilator O2 Flow Rate 21.00 FiO2 21 Capillary Refill : Less Than 3 Seconds I&O Intake and Output 05/04/18 00:00 Intake Total 2925 ml Output Total 4200 ml Balance -1275 ml Intake Oral 0 ml IV Total 2925 ml Output Urine Total 4200 ml General: Other (sedated and intubated) HEENT: Atraumatic Neck: Supple Lungs: Other (bilateral rhonchi) Heart: Regular Rate, Normal S1, Normal S2 Abdomen: Normal Bowel Sounds, Soft, No Tenderness Extremities: No Clubbing, Other (trace edema) Skin: No Rashes Neuro: Other (sedated and intubated) Results Lab Laboratory Tests 05/03/18 12:20 05/03/18 18:00 05/04/18 00:15 05/04/18 03:10 A/P-Cardiology Admission Diagnosis Acute respiratory failure GI bleed Hypovolemic shock Coronary artery disease Assessment/Plan Acute on chronic respiratory failure, history of tracheostomy after vocal cord injury, currently ventilator dependent, sedation is being weaned off for possible weaning off ventilator today. Still unresponsive Acute on chronic renal failure, secondary to hypovolemia and acute tubular necrosis, renal function is better. GI bleed, received multiple blood transfusion, total of 4 units, last unit was last night. Still having a drop in his H&H, consider endoscopy Hypotensive shock, hypovolemia, better at this time, I'll leave if it. Coronary artery disease, history of CABG 4 done in 2008 with paralyzed vocal cord and multiple throat surgeries for removal of vocal cord resulted in tracheostomy in 2008. Frequent premature ventricular contractions, ventricular bigeminy, improved at this time, heart rate is better. Continue to monitor Acute psychosis, sedated at this time. Continue to monitor Peripheral arterial disease by history, monitor for now Hyperglycemia, history of type II diabetes. Admitted with blood sugar around 900, better control at this time. Continue to monitor Chronic pain syndrome, osteoarthritis History of testicular hypofunction Gastroesophageal reflux disease Anxiety Clinical Quality Measures DVT/VTE Risk/Contraindication: Risk Factor Score Per Nursin RFS Level Per Nursing on Admit: 4+=Very High OSMAR JONES MD May 04, 2018 08:49
--- NOTE | 2018-05-04 08:56 | Progress Note-Hospitalist ---
Subjective HPI/CC On Admission Date Seen by Provider: May 04, 2018 Time Seen by Provider: 08:50 Pt is a 52yoCM with a PMH of IDDMII, PVD, trach dependency from vocal cord paralysis who presented to the ER due elevated blood sugar. He is unable to provide any history due to altered mentation but his fiance is at bedside who helps fill in some details. reported he was normal 2 days ago and when she returned home from work at 4pm yesterday he was already asleep. She did not think much of this but she awoke this morning at 230am and he seemed "out of it " so she checked his blood sugar and it read over 600 so she brought him to the ER. He was found to have a BS of >900 and was hypotensive on arrival. He also had an CARLIN with significant uremia and hyperkalemia. He was transferred here for higher level of care. En route he had a large bloody bowel movement. His fiance is unsure if he had any other bloody bowel movements. Subjective/Events-last exam Pt is sedated and on vent. ROS unable to be obtained. RN at bedside and reports melena has slowed. Focused Exam Lactate Level 05/02/18 09:30: Lactic Acid Level 2.54*H 05/02/18 15:14: Lactic Acid Level 4.43*H 05/02/18 17:22: Lactic Acid Level 1.27 Objective Exam Vital Signs Vital Signs Date Time Temp Pulse Resp B/P (MAP) Pulse Ox O2 Delivery O2 Flow Rate FiO2 05/04/18 08:15 96.4 62 20 112/71 (85) 100 Mechanical Ventilator 05/04/18 07:00 21.00 05/04/18 06:42 21 Capillary Refill : Less Than 3 Seconds General Appearance: Chronically ill, Obese HEENT: PERRL/EOMI; No Scleral Icterus (L), No Scleral Icterus (R) Neck: Other (trach in place) Respiratory: Lungs Clear, No Respiratory Distress Cardiovascular: Regular Rate, Rhythm, No Murmur Gastrointestinal: Normal Bowel Sounds, Non Tender, Soft Genital/Rectal: Other (benson in place) Back: Normal Inspection Extremity: No Calf Tenderness, No Pedal Edema, Other (right foot wound between 3rd and 4th digit) Neurologic/Psychiatric: Alert, Disoriented Skin: Tattoos/Piercings Lymphatic: No Adenopathy Results/Procedures Lab Laboratory Tests 05/03/18 12:20 05/03/18 18:00 05/04/18 00:15 05/04/18 03:10 Patient resulted labs reviewed. Imaging: Reviewed Imaging Report Assessment/Plan Assessment and Plan Assess & Plan/Chief Complaint GI Bleed with shock Critical Care Critically Ill Patient Diagnosis/Problems Diagnosis/Problems (1) GI bleed Status: Acute Assessment & Plan: Melena slowed but hgb dropped last night and he required 1u pRBCS Discussed with Dr Matias and requested at least upper scope given transfusion dependent anemia from bleeding and history of CAD Surgery consulted, appreciate recs Continue PPI Qualifiers: GI bleed type/associated pathology: unspecified gastrointestinal hemorrhage type Qualified Codes: K92.2 - Gastrointestinal hemorrhage, unspecified (2) Acute respiratory failure Assessment & Plan: Pulm consulted, appreciate recs Weaning sedation to trial off vent today Qualifiers: Respiratory failure complication: unspecified whether with hypoxia or hypercapnia Qualified Codes: J96.00 - Acute respiratory failure, unspecified whether with hypoxia or hypercapnia (3) Shock Status: Acute Assessment & Plan: hypovolemic now off pressors Monitor closely given continued bleeding (4) Acute kidney failure Status: Acute Assessment & Plan: Improving, creatinine 1.25 and uremia significantly improved Continue IVF trend Qualifiers: Acute renal failure type: unspecified Qualified Codes: N17.9 - Acute kidney failure, unspecified (5) Hyperosmolar non-ketotic state in patient with type 2 diabetes mellitus Assessment & Plan: Not in DKA Continue current insulin regimen A1c 13.8 (6) Lactic acidosis Status: Resolved Assessment & Plan: Likely due to hypotension, does not appear to be related to sepsis trend Continue IVF Resolution Date/Time: 05/03/18 @ 07:31 (7) Tracheostomy present Assessment & Plan: Trach care Pulm consulted, appreciate recs (8) Altered mental status Assessment & Plan: likely metabolic encephalopathy from uremia No focal deficits but if does not improve consider CT head Qualifiers: Altered mental status type: delirium Qualified Codes: R41.0 - Disorientation, unspecified (9) Hyperkalemia Status: Acute Assessment & Plan: Now resolved (10) Elevated troponin Status: Acute Assessment & Plan: Repeat troponin negative Cardiology consulted, appreciate recs history of CAD s/p CABG (11) Wound, open, toe Assessment & Plan: Wound care consulted XR reveals osteomyelitis Continue Vanc and Zosyn Qualifiers: Encounter type: initial encounter Qualified Codes: S91.109A - Unspecified open wound of unspecified toe(s) without damage to nail, initial encounter (12) Squamous cell carcinoma of skin of right middle finger Assessment & Plan: was to have removal and grafting done on 05/[address] Jimenez Surgery consulted, appreciate recs Will need this followed up at their discretion Clinical Quality Measures DVT/VTE Risk/Contraindication: Risk Factor Score Per Nursin RFS Level Per Nursing on Admit: 4+=Very High ELAINA MCLEOD MD May 04, 2018 08:55
[2018-05-04] MEDS: HYDROmorphone 2 MG/ML VIAL (DILAUDID) IV PRN ×3 (09:07→19:33)
--- NOTE | 2018-05-04 09:38 | Diagnostic Imaging Report ---
INDICATION: ICU care, ICU followup, ventilated tracheostomy patient. COMPARISON: 05/03/2018 TECHNIQUE: Single radiograph of the chest dated 05/04/2018. FINDINGS: Tracheostomy appliance is again identified appearing stable. Postsurgical changes of a CABG are again noted. Enteric catheter is again seen extending into the stomach. The cardiac silhouette is enlarged, though stable. Central pulmonary vascular congestion is again seen, though stable. The lungs remain clear of focal pulmonary opacity. No pleural effusion. No pneumothorax. No acute osseous abnormality. Left subclavian central venous catheter is again seen. IMPRESSION: Similar appearing examination demonstrating postsurgical changes and cardiomegaly without new acute cardiopulmonary abnormality. Dictated by: Dictated on workstation # [id number]
[2018-05-04 09:43] LABS: ABG BASE EXCESS -0.5 MMOL/L (-2.5-2.5); ABG OXYGEN SATURATION 96 % (94-100); ABG PCO2 31 MMHG (35-45); ABG PH 7.48 (7.37-7.43); ABG PO2 62 MMHG (79-93); ABG TCO2 23.8 MMOL/L (21.0-31.0)
[2018-05-04 09:44] LABS: ALLENS TEST YES-POS
[2018-05-04 09:45] LABS: INSPIRED O2 ROOM AIR; PATIENT TEMP 96.2; VENTILATOR NO
[2018-05-04 12:23] LABS: HEMOGLOBIN 7.8 G/DL (13.3-17.7)
[2018-05-04 18:04] LABS: HEMOGLOBIN 7.5 G/DL (13.3-17.7)
--- NOTE | 2018-05-04 20:36 | Wound Care Assessment ---
Wound Care Assessment Date Seen by Provider: May 04, 2018 Time Seen by Provider: 19:15 Chief Complaint Ulcers R foot webspaces. HPI The patient is a 52 year old male admitted with multiple serious medical problems noted to have ulceration of the webspaces of the R foot. The patient does not answer questions by mouthing words or gesture. He is extubated. Wounds examined. This represents MASD with resultant diabetic foot ulcer in individual with uncontrolled blood glucose levels. Care orders written. Smoking Status: Current Everyday Smoker Recreational Drug Use: No Alcohol Use: Denies Use Review of Systems General: Other (Unable to obtain due to ventilator.) Exam Vital Signs Date Time Temp Pulse Resp B/P (MAP) Pulse Ox O2 Delivery O2 Flow Rate FiO2 05/04/18 19:36 99.5 105 16 108/77 (87) 97 Room Air 05/04/18 16:00 21 05/04/18 07:00 21.00 Capillary Refill : Less Than 3 Seconds General Appearance: severe distress, other (Cyanotic) Cardiovascular: No normal peripheral pulses (No palpable pedal pulses bilaterally.) Respiratory: respiratory distress, other (On ventilator.) Extremities: other (R foot, 1st, 3rd and 4th webspaces, superficial moisture associated ulcers with heavy exudate, each less than 1.0 cm in diameter.) Results Laboratory Tests 05/03/18 20:37: Glucometer 311H 05/03/18 23:07: Glucometer 254H 05/04/18 00:15: Hemoglobin 6.9*L, Hematocrit 22L 05/04/18 02:33: Blood Gas Puncture Site RIGHT RADIAL, Blood Gas Patient Temperature 96.9, Arterial Blood pH 7.42, Arterial Blood Partial Pressure CO2 37, Arterial Blood Partial Pressure O2 86, Arterial Blood HCO3 24, Arterial Blood Total CO2 25.0, Arterial Blood Oxygen Saturation 97, Arterial Blood Base Excess -0.3, Devin Test POSITIVE, Blood Gas Ventilator Setting YES, Blood Gas Inspired Oxygen 21% VENT 05/04/18 03:10: White Blood Count 7.6, Red Blood Count 3.08L, Hemoglobin 7.6L, Hematocrit 24L, Mean Corpuscular Volume 78L, Mean Corpuscular Hemoglobin 25, Mean Corpuscular Hemoglobin Concent 32, Red Cell Distribution Width 19.2H, Platelet Count 141, Mean Platelet Volume 11.8H, Neutrophils (%) (Auto) 70, Lymphocytes (%) (Auto) 19 , Monocytes (%) (Auto) 7, Eosinophils (%) (Auto) 3, Basophils (%) (Auto) 1, Neutrophils # (Auto) 5.3, Lymphocytes # (Auto) 1.5, Monocytes # (Auto) 0.6, Eosinophils # (Auto) 0.2, Basophils # (Auto) 0.1, Sodium Level 147H, Potassium Level 3.7, Chloride Level 117H, Carbon Dioxide Level 21, Anion Gap 9, Blood Urea Nitrogen 39H, Creatinine 1.25, Estimat Glomerular Filtration Rate 60, BUN/ Creatinine Ratio 31, Glucose Level 215H, Calcium Level 8.1L, Phosphorus Level 2.4, Magnesium Level 2.3 05/04/18 09:25: Beta-Hydroxybutyrate (Chem panel) 0.28H 05/04/18 09:35: Blood Gas Puncture Site RT RAD, Blood Gas Patient Temperature 96.2, Arterial Blood pH 7.48H, Arterial Blood Partial Pressure CO2 31L, Arterial Blood Partial Pressure O2 62L, Arterial Blood HCO3 23, Arterial Blood Total CO2 23.8, Arterial Blood Oxygen Saturation 96, Arterial Blood Base Excess -0.5, Devin Test YES-POS, Blood Gas Ventilator Setting NO, Blood Gas Inspired Oxygen ROOM AIR 05/04/18 11:46: Glucometer 193H 05/04/18 12:15: Hemoglobin 7.8L, Hematocrit 25L 05/04/18 17:53: Glucometer 147H 05/04/18 18:00: Hemoglobin 7.5L, Hematocrit 24L, Triglycerides Level 206H 05/04/18 20:05: Glucometer 145H Microbiology 05/02/18 Blood Culture - Preliminary, Resulted No growth 05/02/18 MRSA Screen - Final, Complete MRSA not isolated Assessment/Plan/Dx 1. Diabetic foot ulcers, multiple superficial ulcers web spaces of R foot, Henson Grades 1 and 2. 2. Diabetes with hyperglycemia, uncontrolled. 3. In extremis, respiratory failure. Plan: Dressing orders given, arterial evaluation is deferred pending clinical stability. ELISA NARAYAN MD May 04, 2018 20:36
--- NOTE | 2018-05-04 21:27 | Progress Note ---
Subjective Date Seen by a Provider: May 04, 2018 Time Seen by a Provider: 10:30 Subjective/Events-last exam patient sitting in chair. Off the ventilator. Sedation stopped and patient pulled his NG tube. Hemoglobin minimal decrease in pressures improved slightly. Patient no complaints at this time with family member at bedside who states seems to be doing a little bit better. Focused Exam Lactate Level 05/02/18 09:30: Lactic Acid Level 2.54*H 05/02/18 15:14: Lactic Acid Level 4.43*H 05/02/18 17:22: Lactic Acid Level 1.27 Objective Exam Vital Signs Date Time Temp Pulse Resp B/P (MAP) Pulse Ox O2 Delivery O2 Flow Rate FiO2 05/04/18 19:36 99.5 105 16 108/77 (87) 97 Room Air 05/04/18 19:13 Room Air 05/04/18 19:00 112 05/04/18 18:00 106 114/48 (70) 99 Room Air 05/04/18 17:00 109 117/54 (75) 96 Room Air 05/04/18 16:00 96.9 05/04/18 16:00 111 129/67 (87) 100 Room Air 05/04/18 16:00 98 Room Air 21 05/04/18 15:00 95 110/54 (72) 97 Room Air 05/04/18 14:00 115 37 139/86 (103) 97 Room Air 05/04/18 13:44 104 05/04/18 13:00 105 140/93 (109) 100 Room Air 05/04/18 13:00 95.7 05/04/18 12:00 98 Mechanical Ventilator 25 05/04/18 12:00 93 18 127/63 (84) 99 Room Air 05/04/18 11:00 86 9 126/73 (90) 100 Room Air 05/04/18 10:25 100 Room Air 05/04/18 10:00 68 11 115/73 (87) 96 Room Air 05/04/18 09:00 66 17 129/53 (78) 100 Room Air 05/04/18 08:48 62 24 100 21 05/04/18 08:15 96.4 62 20 112/71 (85) 100 Mechanical Ventilator 05/04/18 08:00 98 Mechanical Ventilator 25 05/04/18 07:00 58 23 103/62 (76) 98 Mechanical Ventilator 21.00 05/04/18 06:46 58 05/04/18 06:42 58 24 98 21 05/04/18 06:00 59 21 103/65 (78) 97 Mechanical Ventilator 21.00 05/04/18 05:00 59 23 100/62 (75) 99 Mechanical Ventilator 21.00 05/04/18 04:48 96.6 60 21 95/57 98 Mechanical Ventilator 21.00 05/04/18 04:20 60 22 98 21 05/04/18 04:00 98 Mechanical Ventilator 25 05/04/18 04:00 60 21 95/57 (70) 98 Mechanical Ventilator 21.00 05/04/18 03:44 96.6 60 16 113/66 99 Mechanical Ventilator 21 05/04/18 03:00 60 24 121/67 (85) 98 Mechanical Ventilator 21.00 05/04/18 02:25 62 20 98 21 05/04/18 02:25 62 30 98 21 05/04/18 02:00 62 19 92/52 (65) 97 Mechanical Ventilator 21.00 05/04/18 01:49 96.9 61 16 124/65 98 Mechanical Ventilator 21 05/04/18 01:34 96.6 61 18 123/65 98 Mechanical Ventilator 21 05/04/18 01:00 62 05/04/18 01:00 62 24 129/66 (87) 97 Mechanical Ventilator 21.00 05/04/18 00:07 96.9 66 22 91/55 97 Mechanical Ventilator 21.00 05/04/18 00:00 98 Mechanical Ventilator 25 05/04/18 00:00 66 22 91/55 (67) 97 Mechanical Ventilator 21.00 05/03/18 23:00 66 24 106/62 (77) 96 Mechanical Ventilator 21.00 05/03/18 22:15 66 31 96 21 05/03/18 22:00 68 20 102/57 (72) 99 Mechanical Ventilator 21.00 I & O 05/04/18 07:00 Intake Total 2945 ml Output Total 3650 ml Balance -705 ml Capillary Refill : Less Than 3 Seconds General Appearance: No Apparent Distress, Chronically ill, Obese HEENT: PERRL/EOMI; No Scleral Icterus (L), No Scleral Icterus (R) Neck: Other (trach in place) Respiratory: Lungs Clear, No Respiratory Distress Cardiovascular: Regular Rate, Rhythm, No Murmur Gastrointestinal: normal bowel sounds, non tender, soft Extremity: No Calf Tenderness, No Pedal Edema, Other (right foot wound between 3rd and 4th digit) Neurologic/Psychiatric: Alert, Disoriented Skin: Warm/Dry, Tattoos/Piercings Lymphatic: No Adenopathy Results Lab Laboratory Tests 05/03/18 23:07: Glucometer 254H 05/04/18 00:15: Hemoglobin 6.9*L, Hematocrit 22L 05/04/18 02:33: Blood Gas Puncture Site RIGHT RADIAL, Blood Gas Patient Temperature 96.9, Arterial Blood pH 7.42, Arterial Blood Partial Pressure CO2 37, Arterial Blood Partial Pressure O2 86, Arterial Blood HCO3 24, Arterial Blood Total CO2 25.0, Arterial Blood Oxygen Saturation 97, Arterial Blood Base Excess -0.3, Devin Test POSITIVE, Blood Gas Ventilator Setting YES, Blood Gas Inspired Oxygen 21% VENT 05/04/18 03:10: Hemoglobin 7.6L, Hematocrit 24L, White Blood Count 7.6, Red Blood Count 3.08L, Mean Corpuscular Volume 78L, Mean Corpuscular Hemoglobin 25, Mean Corpuscular Hemoglobin Concent 32, Red Cell Distribution Width 19.2H, Platelet Count 141, Mean Platelet Volume 11.8H, Neutrophils (%) (Auto) 70, Lymphocytes (%) (Auto) 19 , Monocytes (%) (Auto) 7, Eosinophils (%) (Auto) 3, Basophils (%) (Auto) 1, Neutrophils # (Auto) 5.3, Lymphocytes # (Auto) 1.5, Monocytes # (Auto) 0.6, Eosinophils # (Auto) 0.2, Basophils # (Auto) 0.1, Sodium Level 147H, Potassium Level 3.7, Chloride Level 117H, Carbon Dioxide Level 21, Anion Gap 9, Blood Urea Nitrogen 39H, Creatinine 1.25, Estimat Glomerular Filtration Rate 60, BUN/ Creatinine Ratio 31, Glucose Level 215H, Calcium Level 8.1L, Phosphorus Level 2.4, Magnesium Level 2.3 05/04/18 09:25: Beta-Hydroxybutyrate (Chem panel) 0.28H 05/04/18 09:35: Blood Gas Puncture Site RT RAD, Blood Gas Patient Temperature 96.2, Arterial Blood pH 7.48H, Arterial Blood Partial Pressure CO2 31L, Arterial Blood Partial Pressure O2 62L, Arterial Blood HCO3 23, Arterial Blood Total CO2 23.8, Arterial Blood Oxygen Saturation 96, Arterial Blood Base Excess -0.5, Devin Test YES-POS, Blood Gas Ventilator Setting NO, Blood Gas Inspired Oxygen ROOM AIR 05/04/18 11:46: Glucometer 193H 05/04/18 12:15: Hemoglobin 7.8L, Hematocrit 25L 05/04/18 17:53: Glucometer 147H 05/04/18 18:00: Hemoglobin 7.5L, Hematocrit 24L, Triglycerides Level 206H 05/04/18 20:05: Glucometer 145H Microbiology 05/02/18 Blood Culture - Preliminary, Resulted No growth 05/02/18 MRSA Screen - Final, Complete MRSA not isolated Assessment/Plan Assessment/Plan Assessment/Plan GI bleed, hx vocal cord paralysis and permanent trach. has not had colonoscopy before in past. initial NGT out appeared some mixed blood. anemia continue to follow hemoglobin. If continues to need to be transfuse we'll plan on transfusing but also may need EGD to further evaluate. Did discussed with Dr. Mcdermott, when initially requested that I scoped today but since decreasing melena stools and since hemoglobin repeat fairly stable will continue to follow conservatively. Clinical Quality Measures DVT/VTE Risk/Contraindication: Risk Factor Score Per Nursin RFS Level Per Nursing on Admit: 4+=Very High MILLA REIS DO May 04, 2018 21:27
[2018-05-04] MEDS ORDERED: diphenhydrAMINE 50 MG/ML INJ (BENADRYL) IV ONE (22:30)
[2018-05-05] VITALS (16 sets, daily range): BP systolic 92–137; BP diastolic 57–92
[2018-05-05] MEDS: MICONAZOLE 2% POWDER (DESENEX AF) 90 GM TOP SCH ×3 (00:52→21:11)
[2018-05-05] MEDS: inSUlin ASPART (NovoLOG) 1 UNIT/0.01 ML (CHARGE PER UNIT) SC SCH ×4 (00:52→17:55)
[2018-05-05 03:46] LABS: BASOPHILS % (AUTO) 0 % (0-10); EOSINOPHILS # (AUTO) 0.1 10^3/uL (0.0-0.3); EOSINOPHILS % (AUTO) 2 % (0-10); HEMATOCRIT 24 % (40-54); HEMOGLOBIN 7.3 G/DL (13.3-17.7); LYMPHOCYTES # (AUTO) 1.2 X 10^3 (1.0-4.0); LYMPHOCYTES % (AUTO) 18 % (12-44); MEAN CORPUSCULAR HEMOGLOBIN 24 PG (25-34); MEAN CORPUSCULAR HGB CONC 30 G/DL (32-36); MEAN CORPUSCULAR VOLUME 80 FL (80-99); MEAN PLATELET VOLUME 11.9 FL (7.4-10.4); MONOCYTES # (AUTO) 0.7 X 10^3 (0.0-1.0); MONOCYTES % (AUTO) 10 % (0-12); NEUTROPHILS # (AUTO) 4.7 X 10^3 (1.8-7.8); NEUTROPHILS % (AUTO) 70 % (42-75); PLATELET COUNT 121 10^3/uL (130-400); RED CELL DISTRIBUTION WIDTH 19.5 % (10.0-14.5); WHITE BLOOD COUNT 6.8 10^3/uL (4.3-11.0)
[2018-05-05] MEDS: HALOPERIDOL 5 MG/ML (HALDOL) AMP IV PRN ×2 (03:47→17:24)
[2018-05-05 04:00] LABS: BUN/CREATININE RATIO 15; CALCIUM 8.3 MG/DL (8.5-10.1); CARBON DIOXIDE 20 MMOL/L (21-32); CHLORIDE 115 MMOL/L (98-107); CREATININE SERUM 1.08 MG/DL (0.60-1.30); GFR ESTIMATED > 60; GLUCOSE 195 MG/DL (70-105); MAGNESIUM 1.8 MG/DL (1.8-2.4); PHOSPHORUS 2.4 MG/DL (2.3-4.7); POTASSIUM 3.2 MMOL/L (3.6-5.0); SODIUM 150 MMOL/L (135-145)
[2018-05-05] MEDS: HYDROmorphone 2 MG/ML VIAL (DILAUDID) IV PRN ×4 (04:06→22:05)
[2018-05-05] MEDS: 1/2 NS IV SOLUTION 1,000 ML IV SCH (04:42)
[2018-05-05] MEDS ORDERED: ALPRAZolam 1 MG (XANAX) TAB PO PRN (05:15)
[2018-05-05] MEDS ORDERED: diphenhydrAMINE 50 MG/ML INJ (BENADRYL) IV PRN (05:15)
--- NOTE | 2018-05-05 05:25 | Pulmonary Progress Note ---
Subjective Time Seen by a Provider: 05:24 Subjective/Events-last exam Pt was very agitated last night. He pulled out central line. He is currently off vent. Sepsis Event Evaluation Height, Weight, BMI Height: 6'1.00" Weight: 236lbs. 0.0oz. 107.902587gr; 31.7 BMI Method:Estimated Focused Exam Lactate Level 05/02/18 09:30: Lactic Acid Level 2.54*H 05/02/18 15:14: Lactic Acid Level 4.43*H 05/02/18 17:22: Lactic Acid Level 1.27 Exam Exam Vital Signs Date Time Temp Pulse Resp B/P (MAP) Pulse Ox O2 Delivery O2 Flow Rate FiO2 05/05/18 04:00 96 Room Air 05/05/18 04:00 89 18 114/57 (76) Room Air 05/05/18 03:00 81 24 109/71 (84) 96 Room Air 05/05/18 02:54 97 Room Air 05/05/18 02:00 79 24 100/65 (77) 96 Room Air 05/05/18 01:00 79 29 92/60 (71) 95 Room Air 05/05/18 01:00 79 05/05/18 00:00 93 119/71 (87) Room Air 05/05/18 00:00 96 Room Air 05/04/18 23:00 99 34 108/62 (77) Room Air 05/04/18 22:26 98 Room Air 05/04/18 22:00 97 25 119/58 (78) 97 Room Air 05/04/18 21:00 114 18 124/61 (82) 94 Room Air 05/04/18 20:00 98 Room Air 05/04/18 19:36 99.5 105 16 108/77 (87) 97 Room Air 05/04/18 19:13 Room Air 05/04/18 19:00 112 05/04/18 18:00 106 114/48 (70) 99 Room Air 05/04/18 17:00 109 117/54 (75) 96 Room Air 05/04/18 16:00 96.9 05/04/18 16:00 111 129/67 (87) 100 Room Air 05/04/18 16:00 98 Room Air 21 05/04/18 15:00 95 110/54 (72) 97 Room Air 05/04/18 14:00 115 37 139/86 (103) 97 Room Air 05/04/18 13:44 104 05/04/18 13:00 105 140/93 (109) 100 Room Air 05/04/18 13:00 95.7 05/04/18 12:00 98 Mechanical Ventilator 25 05/04/18 12:00 93 18 127/63 (84) 99 Room Air 05/04/18 11:00 86 9 126/73 (90) 100 Room Air 05/04/18 10:25 100 Room Air 05/04/18 10:00 68 11 115/73 (87) 96 Room Air 05/04/18 09:00 66 17 129/53 (78) 100 Room Air 05/04/18 08:48 62 24 100 21 05/04/18 08:15 96.4 62 20 112/71 (85) 100 Mechanical Ventilator 05/04/18 08:00 98 Mechanical Ventilator 25 05/04/18 07:00 58 23 103/62 (76) 98 Mechanical Ventilator 21.00 05/04/18 06:46 58 05/04/18 06:42 58 24 98 21 05/04/18 06:00 59 21 103/65 (78) 97 Mechanical Ventilator 21.00 I & O 05/05/18 07:00 Intake Total 1120 ml Output Total 2540 ml Balance -1420 ml Height & Weight Height: 6'1.00" Weight: 236lbs. 0.0oz. 107.207547nx; 31.7 BMI Method:Estimated General Appearance: Chronically ill, Mild Distress, Obese HEENT: PERRL/EOMI; No Scleral Icterus (L), No Scleral Icterus (R) Neck: Other (trach in place) Respiratory: No Respiratory Distress, Decreased Breath Sounds Cardiovascular: Regular Rate, Rhythm, No Murmur Capillary Refill: Less Than 3 Seconds Gastrointestinal: normal bowel sounds, non tender, soft Extremity: No Calf Tenderness, No Pedal Edema, Other (right foot wound between 3rd and 4th digit) Neurologic/Psychiatric: Alert, Disoriented Skin: Warm/Dry, Tattoos/Piercings Lymphatic: No Adenopathy Results Lab Laboratory Tests 05/03/18 07:00 05/03/18 12:20 05/03/18 18:00 05/04/18 00:15 05/04/18 03:10 05/04/18 12:15 05/04/18 18:00 05/05/18 03:25 Assessment/Plan Assessment/Plan Chronic respiratory failure with tracheostomy -precedex -- start -Currently off vent -Haldol -Obtain old records -Oxygen -Monitor Hyperglycemia -- HHNK -24units of Levemir -SSI C Hypotension -Levophed - currently off Psychosis - pt gets very agitated -Sitter at bedside -Ativan PRN --PRN Dilaudid -increase Risperdal, PRN Haldol Hypernatremia -Change IVF to D5W -Continue to monitor AKF -IVF -Monitor GIB -- lower GIB vs major upper GIB ( BUN is 101) s/p total 4 units. with 1 unit last night -PT still having Melanotic stools -Protonix BID IV -Surgery is following -Check H&H Q 6 -IVF ACOSTA FRAGA DO May 05, 2018 05:25
[2018-05-05] MEDS ORDERED: TROUGH ORDER-PHARMACY XX NR (05:30)
[2018-05-05 06:13] LABS: HEMOGLOBIN 7.1 G/DL (13.3-17.7)
[2018-05-05] MEDS: D5W 1000 ML IV SOLUTION 1,000 ML IV SCH ×2 (06:58→17:57)
[2018-05-05] MEDS: POTASSIUM CL 10MEQ/50ML IVPB 50 ML IV SCH ×5 (06:58→08:15)
[2018-05-05] MEDS ORDERED: VANCOMYCIN 1250 MG/NS 250 ML IVPB IV SCH ×2 (07:00)
--- NOTE | 2018-05-05 07:13 | Cardiology Progress Note ---
Subjective Date Seen by Provider: May 05, 2018 Time Seen by Provider: 07:09 Subjective/Events-last exam Patient is awake, not following command or responding to questions, off the ventilator, was agitated last night pulled out his lines. Blood pressure is stable Review of Systems General: Fatigue, Other (not following commands or responding to questions) Focused Exam Lactate Level 05/02/18 09:30: Lactic Acid Level 2.54*H 05/02/18 15:14: Lactic Acid Level 4.43*H 05/02/18 17:22: Lactic Acid Level 1.27 Objective-Cardiology Exam Last Set of Vital Signs Vital Signs 05/04/18 05/04/18 05/04/18 05/05/18 07:00 19:36 20:00 06:00 Temp 99.5 Pulse 77 Resp 15 B/P (MAP) 104/64 (77) Pulse Ox 98 O2 Delivery Room Air O2 Flow Rate 21.00 FiO2 21 Capillary Refill : Less Than 3 Seconds I&O Intake and Output 05/05/18 00:00 Intake Total 1590 ml Output Total 2790 ml Balance -1200 ml Intake Oral 0 ml IV Total 1590 ml Output Urine Total 2790 ml # Bowel Movements 11 General: Alert, Moderate Distress HEENT: Atraumatic Neck: Supple, No Thyromegaly Lungs: Other (bilateral wheezing) Heart: Regular Rate, Normal S1, Normal S2 Abdomen: Normal Bowel Sounds, Soft, No Tenderness Extremities: No Clubbing, Other (trace edema) Skin: No Rashes Neuro: Normal Tone, Other (not following commands) Psych/Mental Status: Other (not responding to questions appropriately) Results Lab Laboratory Tests 05/04/18 12:15 05/04/18 18:00 05/05/18 03:25 05/05/18 05:30 A/P-Cardiology Admission Diagnosis Acute respiratory failure GI bleed Hypovolemic shock Coronary artery disease Assessment/Plan Status post acute on chronic respiratory failure, off the ventilator at this time, managed by Dr. Iglesias next Change in mental status, agitation and confusion, probably secondary to hypoxemia. Status post acute renal failure, renal failure are better at this time, responded to IV fluid. Status post hypotension, blood pressure is better, off old pressors and receiving IV fluid as needed. Anemia with GI bleed received multiple blood transfusion, currently more stable. Continue to monitor Coronary artery disease, history of CABG 4 done in 2008 with paralyzed vocal cord and multiple throat surgeries for removal of vocal cord resulted in tracheostomy in 2008. Acute psychosis, receiving Haldol Peripheral arterial disease by history, monitor for now Hyperglycemia, history of type II diabetes. Admitted with blood sugar around 900, better control at this time. Continue to monitor Chronic pain syndrome, osteoarthritis History of testicular hypofunction Gastroesophageal reflux disease Anxiety Clinical Quality Measures DVT/VTE Risk/Contraindication: Risk Factor Score Per Nursin RFS Level Per Nursing on Admit: 4+=Very High OSMAR JONES MD May 05, 2018 07:13
[2018-05-05] MEDS: PIPERACILLIN/TAZOBACTAM (BULK) 4.5 GM in NS (IVPB) 100 ML IV SCH ×3 (07:43→22:12)
[2018-05-05] MEDS: PREGABALIN 75 MG (LYRICA) CAP PO SCH ×3 (08:17→21:11)
[2018-05-05] MEDS: PANTOPRAZOLE 40 MG (PROTONIX) VIAL IV SCH ×2 (08:17→21:10)
[2018-05-05] MEDS: LORazepam INJ 2 MG/ML (ATIVAN) VIAL IVP PRN ×3 (08:17→22:04)
[2018-05-05] MEDS: risperiDONE 1 MG (RisperDAL) TAB PO SCH ×2 (08:17→21:10)
[2018-05-05] MEDS ORDERED: NON-FORMULARY MEDICATION 1 EA EA (Oxycodone HCl (Oxycontin) 30 MG) PO SCH (08:45)
[2018-05-05] MEDS ORDERED: NON-FORMULARY MEDICATION 1 EA EA (Oxycodone HCl 20 MG) PO PRN (08:45)
[2018-05-05] MEDS ORDERED: MONTELUKAST 10 MG (SINGULAIR) TAB PO SCH (09:00)
[2018-05-05] MEDS ORDERED: NON-FORMULARY MEDICATION 1 EA EA (Pregabalin (Lyrica) 150 MG) PO SCH (09:00)
--- NOTE | 2018-05-05 09:39 | Progress Note-Hospitalist ---
Subjective HPI/CC On Admission Date Seen by Provider: May 05, 2018 Time Seen by Provider: 10:09 Pt is a 52yoCM with a PMH of IDDMII, PVD, trach dependency from vocal cord paralysis who presented to the ER due elevated blood sugar. He is unable to provide any history due to altered mentation but his fiance is at bedside who helps fill in some details. reported he was normal 2 days ago and when she returned home from work at 4pm yesterday he was already asleep. She did not think much of this but she awoke this morning at 230am and he seemed "out of it " so she checked his blood sugar and it read over 600 so she brought him to the ER. He was found to have a BS of >900 and was hypotensive on arrival. He also had an CARLIN with significant uremia and hyperkalemia. He was transferred here for higher level of care. En route he had a large bloody bowel movement. His fiance is unsure if he had any other bloody bowel movements. Subjective/Events-last exam Pt is sleeping. Had just received Ativan and arouses but did not participate in conversation. Discussed with RN and reportedly had 2 more dark stools this AM. Focused Exam Lactate Level 05/02/18 15:14: Lactic Acid Level 4.43*H 05/02/18 17:22: Lactic Acid Level 1.27 Objective Exam Vital Signs Vital Signs Date Time Temp Pulse Resp B/P (MAP) Pulse Ox O2 Delivery O2 Flow Rate FiO2 05/05/18 08:00 114 15 137/83 (101) 99 Room Air 05/04/18 20:00 21 05/04/18 19:36 99.5 05/04/18 07:00 21.00 Capillary Refill : Less Than 3 Seconds General Appearance: Chronically ill, Obese, Other (sleeping) HEENT: PERRL/EOMI; No Scleral Icterus (L), No Scleral Icterus (R) Neck: Other (trach in place) Respiratory: Lungs Clear, No Respiratory Distress Cardiovascular: Regular Rate, Rhythm, No Murmur Gastrointestinal: Normal Bowel Sounds, Non Tender, Soft Genital/Rectal: Other (benson in place) Extremity: No Calf Tenderness, No Pedal Edema, Other (right foot wound between 3rd and 4th digit) Neurologic/Psychiatric: Alert, Disoriented Skin: Tattoos/Piercings Results/Procedures Lab Laboratory Tests 05/04/18 12:15 05/04/18 18:00 05/05/18 03:25 05/05/18 05:30 Patient resulted labs reviewed. Imaging: Reviewed Imaging Report Assessment/Plan Assessment and Plan Assess & Plan/Chief Complaint GI Bleed with shock Critical Care Critically Ill Patient Diagnosis/Problems Diagnosis/Problems (1) GI bleed Status: Acute Assessment & Plan: Melena slowed from admission and Hgb stable Will decrease H&H frequency to preserve blood Discussed with Surgery- plan for scope this week Surgery consulted, appreciate recs Continue PPI Qualifiers: GI bleed type/associated pathology: unspecified gastrointestinal hemorrhage type Qualified Codes: K92.2 - Gastrointestinal hemorrhage, unspecified (2) Acute respiratory failure Status: Resolved Assessment & Plan: Pulm consulted, appreciate recs Liberated from vent yesterday Maintain trach Qualifiers: Respiratory failure complication: unspecified whether with hypoxia or hypercapnia Qualified Codes: J96.00 - Acute respiratory failure, unspecified whether with hypoxia or hypercapnia Resolution Date/Time: 05/05/18 @ 10:19 (3) Shock Status: Resolved Assessment & Plan: hypovolemic now off pressors Monitor closely given continued bleeding Resolution Date/Time: 05/05/18 @ 10:12 (4) Acute kidney failure Status: Acute Assessment & Plan: Uremia resolved and Creatinine 1.08 Trend Monitor UOP Qualifiers: Acute renal failure type: unspecified Qualified Codes: N17.9 - Acute kidney failure, unspecified (5) Hyperosmolar non-ketotic state in patient with type 2 diabetes mellitus Status: Resolved Assessment & Plan: Not in DKA Continue current insulin regimen A1c 13.8 Resolution Date/Time: 05/05/18 @ 10:19 (6) Lactic acidosis Status: Resolved Assessment & Plan: Likely due to hypotension, does not appear to be related to sepsis trend Continue IVF Resolution Date/Time: 05/03/18 @ 07:31 (7) Tracheostomy present Status: Chronic Assessment & Plan: Trach care Pulm consulted, appreciate recs (8) Altered mental status Assessment & Plan: likely metabolic encephalopathy from uremia No focal deficits, improving but slowly Consider CT head or MRI if no improvement tomorrow Qualifiers: Altered mental status type: delirium Qualified Codes: R41.0 - Disorientation, unspecified (9) Hyperkalemia Status: Resolved Assessment & Plan: Now resolved Hypokalemic this AM replaced per protocol Resolution Date/Time: 05/05/18 @ 10:20 (10) Elevated troponin Status: Acute Assessment & Plan: Repeat troponin negative Cardiology consulted, appreciate recs history of CAD s/p CABG (11) Wound, open, toe Assessment & Plan: Wound care consulted XR reveals osteomyelitis Continue Zosyn MRSA in nares negative so lower likelihood of colonization in wound and improving despite low trough Will DC vanc Qualifiers: Encounter type: initial encounter Qualified Codes: S91.109A - Unspecified open wound of unspecified toe(s) without damage to nail, initial encounter (12) Squamous cell carcinoma of skin of right middle finger Assessment & Plan: was to have removal and grafting done on 05/[address] Jimenez Surgery consulted, appreciate recs Will need this followed up at their discretion Clinical Quality Measures DVT/VTE Risk/Contraindication: Risk Factor Score Per Nursin RFS Level Per Nursing on Admit: 4+=Very High ELAINA MCLEOD MD May 05, 2018 09:39
--- NOTE | 2018-05-05 12:18 | Progress Note ---
Subjective Date Seen by a Provider: May 05, 2018 Time Seen by a Provider: 12:12 Subjective/Events-last exam Patient arousable but had ativan so sleepy. Patient has had some dark stools. Hgb fairly stable. No family at bedside. Focused Exam Lactate Level 05/02/18 15:14: Lactic Acid Level 4.43*H 05/02/18 17:22: Lactic Acid Level 1.27 Objective Exam Vital Signs Date Time Temp Pulse Resp B/P (MAP) Pulse Ox O2 Delivery O2 Flow Rate FiO2 05/05/18 08:00 114 15 137/83 (101) 99 Room Air 05/05/18 08:00 96 Room Air 05/05/18 07:00 103 05/05/18 06:00 77 15 104/64 (77) 98 Room Air 05/05/18 05:00 77 20 97/58 (71) 93 Room Air 05/05/18 04:00 96 Room Air 05/05/18 04:00 89 18 114/57 (76) Room Air 05/05/18 03:00 81 24 109/71 (84) 96 Room Air 05/05/18 02:54 97 Room Air 05/05/18 02:00 79 24 100/65 (77) 96 Room Air 05/05/18 01:00 79 29 92/60 (71) 95 Room Air 05/05/18 01:00 79 05/05/18 00:00 93 119/71 (87) Room Air 05/05/18 00:00 96 Room Air 05/04/18 23:00 99 34 108/62 (77) Room Air 05/04/18 22:26 98 Room Air 05/04/18 22:00 97 25 119/58 (78) 97 Room Air 05/04/18 21:00 114 18 124/61 (82) 94 Room Air 05/04/18 20:00 98 Room Air 21 05/04/18 19:36 99.5 105 16 108/77 (87) 97 Room Air 05/04/18 19:13 Room Air 05/04/18 19:00 112 05/04/18 18:00 106 114/48 (70) 99 Room Air 05/04/18 17:00 109 117/54 (75) 96 Room Air 05/04/18 16:00 96.9 05/04/18 16:00 111 129/67 (87) 100 Room Air 05/04/18 16:00 98 Room Air 21 05/04/18 15:00 95 110/54 (72) 97 Room Air 05/04/18 14:00 115 37 139/86 (103) 97 Room Air 05/04/18 13:44 104 05/04/18 13:00 105 140/93 (109) 100 Room Air 05/04/18 13:00 95.7 I & O 05/05/18 07:00 Intake Total 1740 ml Output Total 2940 ml Balance -1200 ml Capillary Refill : Less Than 3 Seconds General Appearance: Chronically ill, Obese, Other (sleepy but arousable) HEENT: PERRL/EOMI; No Scleral Icterus (L), No Scleral Icterus (R) Neck: Other (trach in place) Respiratory: Lungs Clear, No Respiratory Distress Cardiovascular: Regular Rate, Rhythm, No Murmur Gastrointestinal: normal bowel sounds, non tender, soft Extremity: No Calf Tenderness, No Pedal Edema, Other (right foot wound between 3rd and 4th digit) Neurologic/Psychiatric: Alert, Disoriented Skin: Normal Color, Warm/Dry, Tattoos/Piercings Lymphatic: No Adenopathy Results Lab Laboratory Tests 05/04/18 12:15: Hemoglobin 7.8L, Hematocrit 25L 05/04/18 17:53: Glucometer 147H 05/04/18 18:00: Hemoglobin 7.5L, Hematocrit 24L, Triglycerides Level 206H 05/04/18 20:05: Glucometer 145H 05/05/18 00:49: Glucometer 177H 05/05/18 03:25: White Blood Count 6.8, Red Blood Count 3.00L, Hemoglobin 7.3L, Hematocrit 24L, Mean Corpuscular Volume 80, Mean Corpuscular Hemoglobin 24L, Mean Corpuscular Hemoglobin Concent 30L, Red Cell Distribution Width 19.5H, Platelet Count 121L, Mean Platelet Volume 11.9H, Neutrophils (%) (Auto) 70, Lymphocytes (%) (Auto) 18 , Monocytes (%) (Auto) 10, Eosinophils (%) (Auto) 2, Basophils (%) (Auto) 0, Neutrophils # (Auto) 4.7, Lymphocytes # (Auto) 1.2, Monocytes # (Auto) 0.7, Eosinophils # (Auto) 0.1, Basophils # (Auto) 0.0, Sodium Level 150H, Potassium Level 3.2L, Chloride Level 115H, Carbon Dioxide Level 20L, Anion Gap 15H, Blood Urea Nitrogen 16, Creatinine 1.08, Estimat Glomerular Filtration Rate > 60, BUN/ Creatinine Ratio 15, Glucose Level 195H, Calcium Level 8.3L, Phosphorus Level 2.4, Magnesium Level 1.8 05/05/18 05:30: Hemoglobin 7.1L, Hematocrit 23L, Vancomycin Level Trough 7.5L Microbiology 05/02/18 Blood Culture - Preliminary, Resulted No growth 05/02/18 MRSA Screen - Final, Complete MRSA not isolated Assessment/Plan Assessment/Plan Assessment/Plan GI bleed, hx vocal cord paralysis and permanent trach. has not had colonoscopy before in past. initial NGT out appeared some mixed blood. anemia continue to follow hemoglobin. PRBC transfuse as needed. Dr. Jiemnez planning endoscopy to further evaluate this week. Clinical Quality Measures DVT/VTE Risk/Contraindication: Risk Factor Score Per Nursin RFS Level Per Nursing on Admit: 4+=Very High MILLA REIS DO May 05, 2018 12:18
--- NOTE | 2018-05-05 12:28 | Progress Note-Pre Operative ---
Pre-Operative Progress Note H&P Reviewed The H&P was reviewed, patient examined and no changes noted. Date Seen by Provider: May 05, 2018 Time Seen by Provider: 12:25 Date H&P Reviewed: May 02, 2018 Time H&P Reviewed: 12:25 Pre-Operative Diagnosis: GI bleed, anemia THOR PERERA MD May 05, 2018 12:28
[2018-05-05 13:37] LABS: HEMOGLOBIN 7.7 G/DL (13.3-17.7)
[2018-05-05] MEDS: MAGNESIUM CITRATE 300 ML BTL PO SCH ×2 (13:41→21:12)
[2018-05-05] MEDS: oxyCODONE ER 15 MG (oxyCONTIN CR) TAB PO SCH ×2 (14:30→22:12)
--- NOTE | 2018-05-05 15:37 | NUR ---
PT IN CT CT STAFF CALLED THIS RN STATES PT WON'T LAY STILL, HE'S AGITATED, THIS RN DOWN TO CT AND ADMINISTERED DILAUDID AND ATIVAN.
--- NOTE | 2018-05-05 15:56 | Diagnostic Imaging Report ---
PROCEDURE: CT head without contrast. TECHNIQUE: Multiple contiguous axial images were obtained through the brain without the use of intravenous contrast. Auto Exposure Controls were utilized during the CT exam to meet ALARA standards for radiation dose reduction. DATE: May 05, 2018. COMPARISON: None. INDICATION: 52-year-old male, altered mental status. FINDINGS: There is partial opacification of left mastoid air cells. The additional visualized portions of the paranasal sinuses, mastoid air cells and middle ears are well aerated. The ventricles and cerebral spinal fluid spaces are of normal size and configuration for the patient's age. There is no mass effect or midline shift. There is no acute intracranial hemorrhage. There is no abnormal extra-axial fluid collection. IMPRESSION: No identified acute intracranial abnormality. Dictated by: Dictated on workstation # [id number]
[2018-05-05] MEDS: DEXMEDETOMIDINE 1,000 MCG/NS 250 ML IV SCH ×4 (17:09→23:26)
--- NOTE | 2018-05-05 17:15 | NUR ---
PT ALSO PLACED BACK ON VAPO THERM VIA TRACH MASK AT 25LPM AND 30% FOR HUMIDIFICATION.
--- NOTE | 2018-05-05 17:15 | NUR ---
PT TO CT FOR SCAN AND RETURNS VERY CONFUSED AND PULLING ALL LINES AND TUBES. HE IS NOW DOWN TO 1 IV AND CONTINUOUSLY TRIES TO EXIT THE BED WITH OUT HELP. DR MCLEOD NOTIFIED THAT PT'S MENTAL STATUS WAS DECLINING. PRECEDEX WAS RESTARTED TO CALM PT AND HE WAS CHANGED BACK TO ICU STATUS. HALDOL WAS GIVEN TO CALM PT AND MULTIPLE ATTEMPTS TO REPLACE PULLED IV WHERE MADE WITHOUT SUCCESS. PT TAKES MANY PAIN AND ANXIETY MEDS ON A SCHEDULED BASES AT HOME AND MAY BE EXPERIENCING WITHDRAW SYMPTOMS. HE IS MUCH CALMER AND LESS RESTLESS WITH PRECEDEX DRIP ON.
[2018-05-05] MEDS ORDERED: NON-FORMULARY MEDICATION 1 EA EA (Ropinirole HCl 2 MG) PO SCH (21:00)
[2018-05-05] MEDS: ATORVASTATIN 80 MG (LIPITOR) TABLET PO SCH (21:10)
[2018-05-05] MEDS: SERTRALINE 50 MG (ZOLOFT) TABLET PO SCH (21:10)
[2018-05-05] MEDS: rOPINIRole 1 MG (REQUIP) TABLET PO SCH (21:11)
[2018-05-06] VITALS (27 sets, daily range): BP systolic 66–159; BP diastolic 37–109
[2018-05-06] MEDS: inSUlin ASPART (NovoLOG) 1 UNIT/0.01 ML (CHARGE PER UNIT) SC SCH ×4 (00:25→17:06)
[2018-05-06 04:00] LABS: BASOPHILS % (AUTO) 0 % (0-10); EOSINOPHILS # (AUTO) 0.1 10^3/uL (0.0-0.3); EOSINOPHILS % (AUTO) 1 % (0-10); HEMATOCRIT 26 % (40-54); LYMPHOCYTES # (AUTO) 0.9 X 10^3 (1.0-4.0); LYMPHOCYTES % (AUTO) 12 % (12-44); MEAN CORPUSCULAR HEMOGLOBIN 25 PG (25-34); MEAN CORPUSCULAR HGB CONC 31 G/DL (32-36); MEAN CORPUSCULAR VOLUME 81 FL (80-99); MEAN PLATELET VOLUME 11.8 FL (7.4-10.4); MONOCYTES # (AUTO) 0.7 X 10^3 (0.0-1.0); MONOCYTES % (AUTO) 9 % (0-12); NEUTROPHILS # (AUTO) 6.1 X 10^3 (1.8-7.8); NEUTROPHILS % (AUTO) 78 % (42-75); PLATELET COUNT 125 10^3/uL (130-400); RED CELL DISTRIBUTION WIDTH 20.4 % (10.0-14.5); WHITE BLOOD COUNT 7.8 10^3/uL (4.3-11.0)
[2018-05-06 04:13] LABS: CALCIUM 8.7 MG/DL (8.5-10.1); CREATININE SERUM 1.55 MG/DL (0.60-1.30); MAGNESIUM 2.5 MG/DL (1.8-2.4); PHOSPHORUS 2.9 MG/DL (2.3-4.7); POTASSIUM 3.6 MMOL/L (3.6-5.0)
[2018-05-06] MEDS: PIPERACILLIN/TAZOBACTAM (BULK) 4.5 GM in NS (IVPB) 100 ML IV SCH ×3 (04:52→22:01)
[2018-05-06] MEDS: HYDROmorphone 2 MG/ML VIAL (DILAUDID) IV PRN ×4 (05:17→22:00)
[2018-05-06] MEDS: HALOPERIDOL 5 MG/ML (HALDOL) AMP IV PRN ×2 (05:17→18:06)
[2018-05-06] MEDS: oxyCODONE ER 15 MG (oxyCONTIN CR) TAB PO SCH ×3 (05:50→22:01)
[2018-05-06] MEDS ORDERED: 1/2 NS IV SOLUTION 1,000 ML IV ONE (05:59)
[2018-05-06] MEDS: 1/2 NS IV SOLUTION 1,000 ML IV SCH ×3 (06:00→22:53)
--- NOTE | 2018-05-06 06:11 | Pulmonary Progress Note ---
Subjective Time Seen by a Provider: 06:09 Subjective/Events-last exam PT still gets combative with RN when he is awake. Sepsis Event Evaluation Height, Weight, BMI Height: 6'1.00" Weight: 235lbs. 0.0oz. 106.818968cb; 31.7 BMI Method:Estimated Exam Exam Vital Signs Date Time Temp Pulse Resp B/P (MAP) Pulse Ox O2 Delivery O2 Flow Rate FiO2 05/06/18 04:00 67 25 113/63 (80) 100 Vapotherm 45.00 30.00 05/06/18 04:00 97 Trach Collar 45 05/06/18 03:16 69 27 115/54 (74) 100 Vapotherm 45.00 30.00 05/06/18 02:30 71 28 120/46 (70) 100 Vapotherm 45.00 30.00 05/06/18 02:00 100 Vapotherm 25.00 40 05/06/18 01:00 72 19 117/51 (73) 100 Vapotherm 45.00 30.00 05/06/18 01:00 72 05/06/18 00:00 96.9 05/06/18 00:00 80 23 90/70 (77) 100 Vapotherm 45.00 30.00 05/06/18 00:00 97 Trach Collar 45 05/05/18 23:00 73 25 111/61 (78) 100 Vapotherm 45.00 30.00 05/05/18 22:20 100 Vapotherm 30.00 45 05/05/18 22:00 95 12 128/74 (92) 93 Vapotherm 45.00 30.00 05/05/18 21:00 78 27 94/57 (69) 99 Vapotherm 45.00 30.00 05/05/18 20:30 90 32 98/68 (78) 92 Vapotherm 45.00 30.00 05/05/18 20:10 95 Vapotherm 30.00 45 05/05/18 20:00 96 Trach Collar 05/05/18 20:00 97.7 05/05/18 19:30 93 30 111/82 (92) 97 Vapotherm 45.00 30.00 05/05/18 19:00 123 05/05/18 18:25 100 Vapotherm 20.00 30 05/05/18 18:00 114 19 127/68 (87) 100 Vapotherm 30.00 20.00 05/05/18 16:00 122 135/67 (89) 96 Room Air 05/05/18 13:25 128 05/05/18 12:00 118/92 (101) Room Air 05/05/18 08:00 114 15 137/83 (101) 99 Room Air 05/05/18 08:00 96 Room Air 05/05/18 07:00 103 I & O 05/06/18 07:00 Intake Total 2800 ml Output Total 200 ml Balance 2600 ml Height & Weight Height: 6'1.00" Weight: 235lbs. 0.0oz. 106.612502vx; 31.7 BMI Method:Estimated General Appearance: Chronically ill, Mild Distress, Obese HEENT: PERRL/EOMI; No Scleral Icterus (L), No Scleral Icterus (R) Neck: Other (trach in place) Respiratory: No Respiratory Distress, Decreased Breath Sounds Cardiovascular: Regular Rate, Rhythm, No Murmur Capillary Refill: Less Than 3 Seconds Gastrointestinal: normal bowel sounds, non tender, soft Extremity: No Calf Tenderness, No Pedal Edema, Other (right foot wound between 3rd and 4th digit) Neurologic/Psychiatric: Alert, Disoriented Skin: Warm/Dry, Tattoos/Piercings Lymphatic: No Adenopathy Results Lab Laboratory Tests 05/04/18 12:15 05/04/18 18:00 05/05/18 03:25 05/05/18 05:30 05/05/18 13:30 05/06/18 03:25 Assessment/Plan Assessment/Plan Chronic respiratory failure with tracheostomy -Repeat ABG -precedex -Currently off vent -Haldol -Obtain old records -Oxygen -Monitor -Sputum cultures reviewed-- I suspect respiratory colonization. Pt has no current fevers or Leukocytosis. Will hold off on advancing abx. Continue Zosyn x 7days. No signs of infection. Hyperglycemia - with hypernatremia -Change IVF to 1/2 NS and monitor -24units of Levemir -SSI C Hypotension -Levophed - currently off Psychosis - pt gets very agitated -Pt is not able to take PO meds currently -Will schedule Haldol and D/C respiradol -Wean precedex to PRN -Sitter at bedside -Ativan PRN --PRN Dilaudid Hypernatremia -Change IVF to 1/2 NS AKF -IVF -Monitor GIB -- lower GIB vs major upper GIB ( BUN is 101) s/p total 4 units. with 1 unit last night -PT still having Melanotic stools -Protonix BID IV -Surgery is following -- possible EGD today. -Check H&H Q 6 -IVF ACOSTA FRAGA DO May 06, 2018 06:10
[2018-05-06 06:45] LABS: ABG BASE EXCESS -0.8 MMOL/L (-2.5-2.5); ABG OXYGEN SATURATION 92 % (94-100); ABG PCO2 33 MMHG (35-45); ABG PH 7.45 (7.37-7.43); ABG PO2 68 MMHG (79-93)
[2018-05-06 06:46] LABS: ALLENS TEST POSITIVE; INSPIRED O2 35L45% VAPOTHERM; PATIENT TEMP 96; VENTILATOR YES
--- NOTE | 2018-05-06 07:11 | Cardiology Progress Note ---
Subjective Date Seen by Provider: May 06, 2018 Time Seen by Provider: 07:09 Subjective/Events-last exam Patient is still agitated, sedated on Precedex, not providing any history Review of Systems General: Other (agitated and sedated, unable to provide review of systems) Objective-Cardiology Exam Last Set of Vital Signs Vital Signs 05/06/18 05/06/18 05/06/18 00:00 04:00 06:01 Temp 96.9 Pulse 66 Resp 24 B/P (MAP) 90/56 (67) Pulse Ox 100 O2 Delivery Vapotherm O2 Flow Rate 45.00 30.00 FiO2 45 Capillary Refill : Less Than 3 Seconds I&O Intake and Output 05/06/18 00:00 Intake Total 3920 ml Output Total 950 ml Balance 2970 ml Intake Oral 0 ml IV Total 3920 ml Output Urine Total 950 ml # Bowel Movements 7 General: Alert, Moderate Distress, Other (Sedated) HEENT: Atraumatic Neck: Supple, No Thyromegaly Lungs: Normal Air Movement, Other (bilateral rhonchi) Heart: Regular Rate, Normal S1, Normal S2 Abdomen: Normal Bowel Sounds, Soft, No Tenderness Extremities: No Clubbing, Other (trace edema) Skin: No Rashes Neuro: Normal Tone, Other (not following commands) Psych/Mental Status: Other (not responding to questions appropriately) Results Lab Laboratory Tests 05/05/18 13:30 05/06/18 03:25 A/P-Cardiology Admission Diagnosis Acute respiratory failure GI bleed Hypovolemic shock Coronary artery disease Assessment/Plan Status post acute on chronic respiratory failure, off the ventilator at this time, still sedated at this time, receiving antibiotic. managed by Dr. Iglesias Change in mental status, agitation and confusion, probably secondary to hypoxemia, on Precedex at this time due to agitation Status post acute renal failure, renal failure are better at this time, responded to IV fluid. Status post hypotension, blood pressure is better, off old pressors and receiving IV fluid as needed. Anemia with GI bleed received multiple blood transfusion, currently more stable. Continue to monitor Coronary artery disease, history of CABG 4 done in 2008 with paralyzed vocal cord and multiple throat surgeries for removal of vocal cord resulted in tracheostomy in 2008. Acute psychosis, receiving Haldol Peripheral arterial disease by history, monitor for now Hyperglycemia, history of type II diabetes. Admitted with blood sugar around 900, better control at this time. Continue to monitor Chronic pain syndrome, osteoarthritis History of testicular hypofunction Gastroesophageal reflux disease Anxiety Clinical Quality Measures DVT/VTE Risk/Contraindication: Risk Factor Score Per Nursin RFS Level Per Nursing on Admit: 4+=Very High OSMAR JONES MD May 06, 2018 07:11
[2018-05-06] MEDS: POTASSIUM CL 10MEQ/50ML IVPB 50 ML IV SCH ×3 (07:40→08:44)
[2018-05-06] MEDS: HALOPERIDOL 5 MG/ML (HALDOL) AMP IM SCH ×2 (08:40→20:44)
[2018-05-06] MEDS: MICONAZOLE 2% POWDER (DESENEX AF) 90 GM TOP SCH ×2 (08:41→20:44)
[2018-05-06] MEDS: PANTOPRAZOLE 40 MG (PROTONIX) VIAL IV SCH ×2 (08:41→20:44)
[2018-05-06] MEDS: PREGABALIN 75 MG (LYRICA) CAP PO SCH ×3 (08:41→21:32)
[2018-05-06] MEDS: LORazepam INJ 2 MG/ML (ATIVAN) VIAL IVP PRN ×3 (08:43→22:00)
--- NOTE | 2018-05-06 11:10 | NUR ---
Pastoral care visit.
[2018-05-06] MEDS: DEXMEDETOMIDINE 1,000 MCG/NS 250 ML IV SCH ×4 (13:09→22:30)
--- NOTE | 2018-05-06 14:53 | Progress Note (SOAP) ---
Subjective Date Seen by a Provider: May 06, 2018 Time Seen by a Provider: 14:45 Subjective/Events-last exam pt on vent and sedated due to severe agitation. CT head negative. Hb relatively stable. s/p 4 units PRBC. Objective Exam Vital Signs Date Time Temp Pulse Resp B/P (MAP) Pulse Ox O2 Delivery O2 Flow Rate FiO2 05/06/18 14:42 97 Vapotherm 25.00 40 05/06/18 14:00 77 24 82/40 (54) 99 Vapotherm 45.00 30.00 05/06/18 13:07 80 05/06/18 13:00 80 26 122/62 (82) 96 Vapotherm 45.00 30.00 05/06/18 12:00 97.3 05/06/18 12:00 97 Trach Collar 45 05/06/18 12:00 118 35 159/94 (115) 93 Vapotherm 45.00 30.00 05/06/18 11:00 71 26 109/49 (69) 100 Vapotherm 45.00 30.00 05/06/18 10:15 71 23 125/55 (78) 100 Vapotherm 45.00 30.00 05/06/18 10:00 96.9 05/06/18 10:00 70 31 144/109 (121) 100 Vapotherm 45.00 30.00 05/06/18 09:30 64 23 89/39 (56) 100 Vapotherm 45.00 30.00 05/06/18 09:15 64 36 67/41 (50) 100 Vapotherm 45.00 30.00 05/06/18 09:00 63 23 66/37 (47) 100 Vapotherm 45.00 30.00 05/06/18 09:00 96.7 05/06/18 08:00 72 23 113/78 (90) 100 Vapotherm 45.00 30.00 05/06/18 08:00 97 Trach Collar 45 05/06/18 07:45 72 25 113/74 (87) 100 Vapotherm 45.00 30.00 05/06/18 07:00 64 05/06/18 07:00 64 23 100 Vapotherm 45.00 30.00 05/06/18 06:01 66 24 90/56 (67) 100 Vapotherm 45.00 30.00 05/06/18 05:00 73 21 118/55 (76) 100 Vapotherm 45.00 30.00 05/06/18 04:00 67 25 113/63 (80) 100 Vapotherm 45.00 30.00 05/06/18 04:00 97 Trach Collar 45 05/06/18 03:16 69 27 115/54 (74) 100 Vapotherm 45.00 30.00 05/06/18 02:30 71 28 120/46 (70) 100 Vapotherm 45.00 30.00 05/06/18 02:00 100 Vapotherm 25.00 40 05/06/18 01:00 72 19 117/51 (73) 100 Vapotherm 45.00 30.00 05/06/18 01:00 72 05/06/18 00:00 96.9 05/06/18 00:00 80 23 90/70 (77) 100 Vapotherm 45.00 30.00 05/06/18 00:00 97 Trach Collar 45 05/05/18 23:00 73 25 111/61 (78) 100 Vapotherm 45.00 30.00 05/05/18 22:20 100 Vapotherm 30.00 45 05/05/18 22:00 95 12 128/74 (92) 93 Vapotherm 45.00 30.00 05/05/18 21:00 78 27 94/57 (69) 99 Vapotherm 45.00 30.00 05/05/18 20:30 90 32 98/68 (78) 92 Vapotherm 45.00 30.00 05/05/18 20:10 95 Vapotherm 30.00 45 05/05/18 20:00 96 Trach Collar 05/05/18 20:00 97.7 05/05/18 19:30 93 30 111/82 (92) 97 Vapotherm 45.00 30.00 05/05/18 19:00 123 05/05/18 18:25 100 Vapotherm 20.00 30 05/05/18 18:00 114 19 127/68 (87) 100 Vapotherm 30.00 20.00 05/05/18 16:00 122 135/67 (89) 96 Room Air I & O 05/06/18 07:00 Intake Total 2800 ml Output Total 350 ml Balance 2450 ml Capillary Refill : Less Than 3 Seconds General Appearance: No Apparent Distress HEENT: PERRL/EOMI Neck: Full Range of Motion Respiratory: Chest Non Tender, Decreased Breath Sounds Cardiovascular: Regular Rate, Rhythm Gastrointestinal: normal bowel sounds, non tender, soft Neurologic/Psychiatric: Alert, Oriented x3 Skin: Normal Color Lymphatic: No Adenopathy Results Lab Laboratory Tests 05/05/18 17:52: Glucometer 224H 05/05/18 21:09: Glucometer 341H 05/06/18 00:21: Glucometer 325H 05/06/18 03:25: White Blood Count 7.8, Red Blood Count 3.22L, Hemoglobin 8.0L, Hematocrit 26L, Mean Corpuscular Volume 81, Mean Corpuscular Hemoglobin 25, Mean Corpuscular Hemoglobin Concent 31L, Red Cell Distribution Width 20.4H, Platelet Count 125L, Mean Platelet Volume 11.8H, Neutrophils (%) (Auto) 78H, Lymphocytes (%) (Auto) 12, Monocytes (%) (Auto) 9, Eosinophils (%) (Auto) 1, Basophils (%) (Auto) 0, Neutrophils # (Auto) 6.1, Lymphocytes # (Auto) 0.9L, Monocytes # (Auto) 0.7, Eosinophils # (Auto) 0.1, Basophils # (Auto) 0.0, Sodium Level 144, Potassium Level 3.6, Chloride Level 111H, Carbon Dioxide Level 18L, Anion Gap 15H, Blood Urea Nitrogen 14, Creatinine 1.55H, Estimat Glomerular Filtration Rate 47, BUN/ Creatinine Ratio 9, Glucose Level 363H, Calcium Level 8.7, Phosphorus Level 2.9 , Magnesium Level 2.5H 05/06/18 06:40: Blood Gas Puncture Site RIGHT RADIAL, Blood Gas Patient Temperature 96, Arterial Blood pH 7.45H, Arterial Blood Partial Pressure CO2 33L, Arterial Blood Partial Pressure O2 68L, Arterial Blood HCO3 23, Arterial Blood Total CO2 24.0, Arterial Blood Oxygen Saturation 92L, Arterial Blood Base Excess -0.8, Devin Test POSITIVE, Blood Gas Ventilator Setting YES, Blood Gas Inspired Oxygen 35L45% VAPOTHERM 05/06/18 11:20: Glucometer 206H 05/06/18 12:21: Lab Scanned Report Transfusion Reaction Form Microbiology 05/02/18 Blood Culture - Preliminary, Resulted No growth 05/02/18 MRSA Screen - Final, Complete MRSA not isolated Assessment/Plan Assessment/Plan Assess & Plan/Chief Complaint GI bleed, hx vocal cord paralysis and permanent trach. has not had colonoscopy before in past. initial NGT out appeared some mixed blood. will proceed with EGD and Colonoscopy on this admisssion. patient severely agitated when sedation weened. Hb stable however does have episodes of hypotension when sedation restarted. will await medical stability then proceed with endoscopy. Clinical Quality Measures DVT/VTE Risk/Contraindication: Risk Factor Score Per Nursin RFS Level Per Nursing on Admit: 4+=Very High THOR PERERA MD May 06, 2018 14:53
[2018-05-06] MEDS ORDERED: NS IV 500 ML 500 ML ONE (16:27)
[2018-05-06] MEDS ORDERED: NS (IVPB) 500 ML IV ONE (16:30)
--- NOTE | 2018-05-06 16:37 | Progress Note-Hospitalist ---
Progress Note Progress Notes/Assess & Plan Date Seen 05/06/18 Time Seen by Provider: 16:34 Assessment & Plan The patient is a 52-year-old white male whom I accepted in transfer from the [facility] emergency room. This occurred at approximately 06 30 on 05/02. The problem stated to me at that time had to do with a decreased mental alertness and a blood sugar that at the time was between 650 and 700. By the time he arrived here he had a blood sugar that was in the 900 range. He had a large bloody stool at the time of arrival. He has subsequently required ventilation and sedation for agitated behavior. He has also subsequently received 4 units of packed red blood cells. He is currently off the ventilator. His vital signs are stable. He has required Haldol and other tranquilizers for continued agitated behavior. ESTEBAN BELL MD May 06, 2018 16:37
[2018-05-06] MEDS ORDERED: TROUGH ORDER-PHARMACY XX NR (18:00)
[2018-05-06] MEDS: NS IV 500 ML 500 ML IV SCH ×2 (18:09→18:21)
[2018-05-06] MEDS: ATORVASTATIN 80 MG (LIPITOR) TABLET PO SCH ×2 (21:31→21:32)
[2018-05-06] MEDS: SERTRALINE 50 MG (ZOLOFT) TABLET PO SCH (21:32)
[2018-05-06] MEDS: rOPINIRole 1 MG (REQUIP) TABLET PO SCH (21:32)
[2018-05-06] MEDS ORDERED: ALBUMIN 25% 25 GM/100 ML 100 ML IV ONE ×2 (22:21→22:45)
[2018-05-07] VITALS (28 sets, daily range): BP systolic 84–131; BP diastolic 58–93
[2018-05-07] MEDS ORDERED: FUROSEMIDE 40 MG/4 ML INJ (LASIX) IV ONE
[2018-05-07] MEDS: inSUlin ASPART (NovoLOG) 1 UNIT/0.01 ML (CHARGE PER UNIT) SC SCH ×4 (00:54→17:23)
[2018-05-07] MEDS: HYDROmorphone 2 MG/ML VIAL (DILAUDID) IV PRN ×4 (02:36→23:15)
[2018-05-07] MEDS: LORazepam INJ 2 MG/ML (ATIVAN) VIAL IVP PRN ×2 (02:36→08:20)
[2018-05-07 03:45] LABS: BASOPHILS % (AUTO) 0 % (0-10); EOSINOPHILS # (AUTO) 0.1 10^3/uL (0.0-0.3); EOSINOPHILS % (AUTO) 2 % (0-10); HEMATOCRIT 25 % (40-54); HEMOGLOBIN 7.3 G/DL (13.3-17.7); LYMPHOCYTES # (AUTO) 1.2 X 10^3 (1.0-4.0); LYMPHOCYTES % (AUTO) 17 % (12-44); MEAN CORPUSCULAR HEMOGLOBIN 25 PG (25-34); MEAN CORPUSCULAR HGB CONC 30 G/DL (32-36); MEAN CORPUSCULAR VOLUME 83 FL (80-99); MONOCYTES # (AUTO) 0.7 X 10^3 (0.0-1.0); MONOCYTES % (AUTO) 10 % (0-12); NEUTROPHILS # (AUTO) 4.9 X 10^3 (1.8-7.8); NEUTROPHILS % (AUTO) 71 % (42-75); PLATELET COUNT 113 10^3/uL (130-400); RED CELL DISTRIBUTION WIDTH 20.7 % (10.0-14.5)
[2018-05-07 04:09] LABS: CALCIUM 8.1 MG/DL (8.5-10.1); CREATININE SERUM 1.68 MG/DL (0.60-1.30); MAGNESIUM 2.8 MG/DL (1.8-2.4); PHOSPHORUS 2.7 MG/DL (2.3-4.7); POTASSIUM 3.2 MMOL/L (3.6-5.0)
[2018-05-07] MEDS: PIPERACILLIN/TAZOBACTAM (BULK) 4.5 GM in NS (IVPB) 100 ML IV SCH ×3 (05:10→22:38)
[2018-05-07] MEDS: KCL 20 MEQ TAB (K-DUR) PO SCH (05:11)
[2018-05-07] MEDS: POTASSIUM CL 10MEQ/50ML IVPB 50 ML IV SCH ×4 (05:11→07:25)
[2018-05-07] MEDS: oxyCODONE ER 15 MG (oxyCONTIN CR) TAB PO SCH ×3 (05:11→22:38)
[2018-05-07] MEDS: MAGNESIUM 1 GM/100 ML IVPB 100 ML IV SCH (05:11)
[2018-05-07] MEDS ORDERED: POTASSIUM CL 10MEQ/50ML IVPB 200 ML IV ONE (05:16)
[2018-05-07] MEDS ORDERED: POTASSIUM CL 10MEQ/50ML IVPB 50 ML IV ONE (05:18)
[2018-05-07] MEDS ORDERED: LACTATED RINGERS 1,000 ML IV ONE ×2 (06:14→13:15)
[2018-05-07] MEDS ORDERED: LACTATED RINGERS 1,000 ML IV SCH (06:15)
--- NOTE | 2018-05-07 06:19 | Pulmonary Progress Note ---
Subjective Time Seen by a Provider: 07:11 Subjective/Events-last exam Pt is unresponsive to even painful stimuli currently. Pt is over sedated. Sepsis Event Evaluation Height, Weight, BMI Height: 6'1.00" Weight: 232lbs. 0.0oz. 105.485581wq; 31.7 BMI Method:Estimated Exam Exam Vital Signs Date Time Temp Pulse Resp B/P (MAP) Pulse Ox O2 Delivery O2 Flow Rate FiO2 05/07/18 05:09 66 20 100 Vapotherm 25.00 25.00 05/07/18 05:00 67 20 104/71 (82) 100 Vapotherm 30.00 30.00 05/07/18 04:00 67 21 96/58 (71) 100 Vapotherm 30.00 30.00 05/07/18 04:00 97 Trach Collar 45 05/07/18 03:00 69 25 95/60 (72) 98 Vapotherm 30.00 30.00 05/07/18 02:37 77 23 95 Vapotherm 30.00 30.00 05/07/18 02:22 100 Vapotherm 25.00 35 05/07/18 02:00 72 20 107/61 (76) 100 Vapotherm 35.00 30.00 05/07/18 01:00 71 21 102/59 (73) 100 Vapotherm 35.00 30.00 05/07/18 01:00 71 05/07/18 00:13 71 21 84/58 (67) 100 Vapotherm 35.00 30.00 05/07/18 00:00 97.9 05/07/18 00:00 97 Trach Collar 45 05/06/18 23:00 73 21 89/59 (69) 100 Vapotherm 35.00 30.00 05/06/18 22:31 97 Vapotherm 25.00 40 05/06/18 22:30 78 22 100 Vapotherm 35.00 30.00 05/06/18 22:00 88 36 103/59 (74) 96 Vapotherm 45.00 30.00 05/06/18 21:00 76 24 93/63 (73) 100 Vapotherm 45.00 30.00 05/06/18 20:00 97 Trach Collar 45 05/06/18 20:00 99.3 78 26 94/59 (71) 100 Vapotherm 45.00 30.00 05/06/18 19:00 78 24 88/55 (66) 100 Vapotherm 45.00 30.00 05/06/18 19:00 78 05/06/18 18:00 97.6 05/06/18 18:00 105 36 139/67 (91) 97 Vapotherm 45.00 30.00 05/06/18 17:00 90 28 131/80 (97) 99 Vapotherm 45.00 30.00 05/06/18 16:00 97.1 05/06/18 16:00 87 30 118/72 (87) 98 Vapotherm 45.00 30.00 05/06/18 16:00 97 Trach Collar 45 05/06/18 15:00 91 24 116/76 (89) 97 Vapotherm 45.00 30.00 05/06/18 14:42 97 Vapotherm 25.00 40 05/06/18 14:00 77 24 82/40 (54) 99 Vapotherm 45.00 30.00 05/06/18 13:07 80 05/06/18 13:00 80 26 122/62 (82) 96 Vapotherm 45.00 30.00 05/06/18 12:00 97.3 05/06/18 12:00 97 Trach Collar 45 05/06/18 12:00 118 35 159/94 (115) 93 Vapotherm 45.00 30.00 05/06/18 11:00 71 26 109/49 (69) 100 Vapotherm 45.00 30.00 05/06/18 10:15 71 23 125/55 (78) 100 Vapotherm 45.00 30.00 05/06/18 10:00 96.9 05/06/18 10:00 70 31 144/109 (121) 100 Vapotherm 45.00 30.00 05/06/18 09:30 64 23 89/39 (56) 100 Vapotherm 45.00 30.00 05/06/18 09:15 64 36 67/41 (50) 100 Vapotherm 45.00 30.00 05/06/18 09:00 63 23 66/37 (47) 100 Vapotherm 45.00 30.00 05/06/18 09:00 96.7 05/06/18 08:00 72 23 113/78 (90) 100 Vapotherm 45.00 30.00 05/06/18 08:00 97 Trach Collar 45 05/06/18 07:45 72 25 113/74 (87) 100 Vapotherm 45.00 30.00 05/06/18 07:00 64 05/06/18 07:00 64 23 100 Vapotherm 45.00 30.00 I & O 05/07/18 07:00 Intake Total 1060 ml Output Total 425 ml Balance 635 ml Height & Weight Height: 6'1.00" Weight: 232lbs. 0.0oz. 105.091472fl; 31.7 BMI Method:Estimated General Appearance: No Apparent Distress HEENT: PERRL/EOMI Neck: Full Range of Motion Respiratory: Chest Non Tender, Decreased Breath Sounds Cardiovascular: Regular Rate, Rhythm Capillary Refill: Less Than 3 Seconds Gastrointestinal: normal bowel sounds, non tender, soft Extremity: No Calf Tenderness, No Pedal Edema, Other (right foot wound between 3rd and 4th digit) Neurologic/Psychiatric: Depressed Affect, Other (unresponsive) Skin: Normal Color Lymphatic: No Adenopathy Results Lab Laboratory Tests 05/05/18 13:30 05/06/18 03:25 05/07/18 03:25 Assessment/Plan Assessment/Plan Chronic respiratory failure with tracheostomy -Repeat ABG -Currently off vent -Haldol -Obtain old records -Oxygen -Monitor -Sputum cultures reviewed-- I suspect respiratory colonization. Pt has no current fevers or Leukocytosis. Will hold off on advancing abx. Continue Zosyn x 7days. No signs of infection. Unresponsive - oversedated -D/C precedex -Decrease Dilaudid, and Ativan -repeat ABG Hyperglycemia - with hypernatremia -Change IVF to 1/2 NS and monitor -24units of Levemir -SSI C Hypotension -Give 1 liter bolus of NS over 2 hours -hold lasix Psychosis - pt gets very agitated -Pt is not able to take PO meds currently -Will schedule Haldol and D/C respiradol -Wean precedex to PRN -Sitter at bedside -Ativan PRN --PRN Dilaudid Hypernatremia -Change IVF to 1/2 NS AKF -IVF -Monitor GIB -- lower GIB vs major upper GIB ( BUN is 101) s/p total 4 units. with 1 unit last night -PT still having Melanotic stools -Protonix BID IV -Surgery is following -- possible EGD today. -Check H&H Q 6 -IVF ACOSTA FRAGA DO May 07, 2018 06:19
[2018-05-07] MEDS: 1/2 NS IV SOLUTION 1,000 ML IV SCH ×2 (07:11→17:25)
--- NOTE | 2018-05-07 07:22 | Cardiology Progress Note ---
Subjective Date Seen by Provider: May 07, 2018 Time Seen by Provider: 07:21 Subjective/Events-last exam patient is laying down in bed, not waking up or responding to command, sedated Review of Systems General: Other (sedated, unable to provide review of systems) Objective-Cardiology Exam Last Set of Vital Signs Vital Signs 05/07/18 05/07/18 05/07/18 05/07/18 00:00 04:00 06:00 06:40 Temp 97.9 Pulse 67 Resp 18 B/P (MAP) 104/71 (82) Pulse Ox 99 O2 Delivery Vapotherm O2 Flow Rate 21.00 25.00 FiO2 45 Capillary Refill : Less Than 3 Seconds I&O Intake and Output 05/07/18 00:00 Intake Total 700 ml Output Total 575 ml Balance 125 ml IV Total 700 ml Output Urine Total 575 ml General: Alert, Moderate Distress, Other (Sedated) HEENT: Atraumatic Neck: Supple, No Thyromegaly Lungs: Normal Air Movement, Other (bilateral rhonchi) Heart: Regular Rate, Normal S1, Normal S2 Abdomen: Normal Bowel Sounds, Soft, No Tenderness Extremities: No Clubbing, Other (trace edema) Skin: No Rashes Neuro: Normal Tone, Other (not following commands) Psych/Mental Status: Other (not responding to questions appropriately) Results Lab Laboratory Tests 05/07/18 03:25 A/P-Cardiology Admission Diagnosis Acute respiratory failure GI bleed Hypovolemic shock Coronary artery disease Assessment/Plan Status post acute on chronic respiratory failure, off the ventilator at this time, still sedated at this time, receiving antibiotic. managed by Dr. Iglesias Change in mental status, agitation and confusion, probably secondary to hypoxemia, sedated, managed by primary care team Status post acute renal failure, continue on IV fluid and monitor renal function Status post hypotension, blood pressure is better, off old pressors and receiving IV fluid as needed, continue to monitor blood pressure Anemia with GI bleed received multiple blood transfusion, possible endoscopy Coronary artery disease, history of CABG 4 done in 2008 with paralyzed vocal cord and multiple throat surgeries for removal of vocal cord resulted in tracheostomy in 2008. Acute psychosis, receiving Haldol Peripheral arterial disease by history, monitor for now Hyperglycemia, history of type II diabetes. Admitted with blood sugar around 900, better control at this time. Continue to monitor Chronic pain syndrome, osteoarthritis History of testicular hypofunction Gastroesophageal reflux disease Anxiety Clinical Quality Measures DVT/VTE Risk/Contraindication: Risk Factor Score Per Nursin RFS Level Per Nursing on Admit: 4+=Very High OSMAR JONES MD May 07, 2018 07:22
[2018-05-07] MEDS ORDERED: FUROSEMIDE 40 MG/4 ML INJ (LASIX) ONE (07:30)
[2018-05-07 08:03] LABS: ABG BASE EXCESS -4.2 MMOL/L (-2.5-2.5); ABG OXYGEN SATURATION 88 % (94-100); ABG PCO2 29 MMHG (35-45); ABG PH 7.44 (7.37-7.43); ABG PO2 59 MMHG (79-93); ABG TCO2 20.2 MMOL/L (21.0-31.0)
[2018-05-07 08:04] LABS: PATIENT TEMP 97.9
[2018-05-07] MEDS: MICONAZOLE 2% POWDER (DESENEX AF) 90 GM TOP SCH ×2 (08:19→22:36)
[2018-05-07] MEDS: PANTOPRAZOLE 40 MG (PROTONIX) VIAL IV SCH ×2 (08:19→22:35)
[2018-05-07] MEDS: PREGABALIN 75 MG (LYRICA) CAP PO SCH ×3 (08:19→22:35)
--- NOTE | 2018-05-07 09:33 | Diagnostic Imaging Report ---
INDICATION: Hypotension Comparison made with prior examination from 05/04/2018 FINDINGS: There is cardiomegaly. There is venous congestion. The has been a previous median sternotomy. There is no pleural effusion or pneumothorax. Tracheostomy tube is in place. IMPRESSION: Cardiomegaly and some moderate central pulmonary venous congestion which is increased since prior examination. Dictated by: Dictated on workstation # [id number]
[2018-05-07] MEDS ORDERED: NS (IVPB) 50 ML ONE (09:55)
[2018-05-07] MEDS ORDERED: PROPOFOL DRIP (ICU) 100 ML IV ONE (09:55)
[2018-05-07] MEDS ORDERED: DEXMEDETOMIDINE INJECTION 200 MCG in NS (IVPB) 50 ML IV SCH (10:00)
[2018-05-07 10:22] LABS: ABG BASE EXCESS -10.4 MMOL/L (-2.5-2.5); ABG OXYGEN SATURATION 98 % (94-100); ABG PCO2 41 MMHG (35-45); ABG PO2 108 MMHG (79-93); ABG TCO2 17.3 MMOL/L (21.0-31.0)
[2018-05-07 10:26] LABS: ABG PH 7.22 (7.37-7.43); ALLENS TEST YES-POS; INSPIRED O2 100%; PATIENT TEMP 97.2; VENTILATOR YES
[2018-05-07] MEDS ORDERED: SODIUM BICARB 8.4% 50 MEQ/50 ML (ABBOTT) SYR ONE (10:42)
--- NOTE | 2018-05-07 10:42 | NUR ---
1015 PATIENT WAS PLACED ON THE VENTILATOR AC/VC VT 450, RATE 16, PEEP 5, 100% TO START AND AT 1041 HEATED CIRCUIT WAS PLACED ON PATIENT
[2018-05-07] MEDS: PROPOFOL DRIP (ICU) 100 ML IV SCH ×4 (11:08→22:34)
--- NOTE | 2018-05-07 11:22 | Progress Note (SOAP) ---
Subjective Date Seen by a Provider: May 07, 2018 Time Seen by a Provider: 11:00 Subjective/Events-last exam patient continues to be agitated/confused/combative when sedation weened. back on ventilatory due to resp insufficiency. Hb still relatively stable. Objective Exam Vital Signs Date Time Temp Pulse Resp B/P (MAP) Pulse Ox O2 Delivery O2 Flow Rate FiO2 05/07/18 11:08 97.3 05/07/18 10:50 97.3 05/07/18 10:15 85 31 92 100 05/07/18 10:10 Mechanical Ventilator 100.00 05/07/18 09:00 82 37 108/64 (79) 92 Vapotherm 21.00 25.00 05/07/18 08:00 92 26 127/87 (100) 97 Vapotherm 21.00 25.00 05/07/18 08:00 97 Trach Collar 45 05/07/18 07:01 69 05/07/18 07:00 69 18 112/69 (83) 97 Vapotherm 21.00 25.00 05/07/18 06:40 67 18 99 Vapotherm 21.00 25.00 05/07/18 06:00 65 20 104/71 (82) 100 Vapotherm 25.00 25.00 05/07/18 05:09 66 20 100 Vapotherm 25.00 25.00 05/07/18 05:00 67 20 104/71 (82) 100 Vapotherm 30.00 30.00 05/07/18 04:00 67 21 96/58 (71) 100 Vapotherm 30.00 30.00 05/07/18 04:00 97 Trach Collar 45 05/07/18 03:00 69 25 95/60 (72) 98 Vapotherm 30.00 30.00 05/07/18 02:37 77 23 95 Vapotherm 30.00 30.00 05/07/18 02:22 100 Vapotherm 25.00 35 05/07/18 02:00 72 20 107/61 (76) 100 Vapotherm 35.00 30.00 05/07/18 01:00 71 21 102/59 (73) 100 Vapotherm 35.00 30.00 05/07/18 01:00 71 05/07/18 00:13 71 21 84/58 (67) 100 Vapotherm 35.00 30.00 05/07/18 00:00 97.9 05/07/18 00:00 97 Trach Collar 45 05/06/18 23:00 73 21 89/59 (69) 100 Vapotherm 35.00 30.00 05/06/18 22:31 97 Vapotherm 25.00 40 05/06/18 22:30 78 22 100 Vapotherm 35.00 30.00 05/06/18 22:00 88 36 103/59 (74) 96 Vapotherm 45.00 30.00 05/06/18 21:00 76 24 93/63 (73) 100 Vapotherm 45.00 30.00 05/06/18 20:00 97 Trach Collar 45 05/06/18 20:00 99.3 78 26 94/59 (71) 100 Vapotherm 45.00 30.00 05/06/18 19:00 78 24 88/55 (66) 100 Vapotherm 45.00 30.00 05/06/18 19:00 78 05/06/18 18:00 97.6 05/06/18 18:00 105 36 139/67 (91) 97 Vapotherm 45.00 30.00 05/06/18 17:00 90 28 131/80 (97) 99 Vapotherm 45.00 30.00 05/06/18 16:00 97.1 05/06/18 16:00 87 30 118/72 (87) 98 Vapotherm 45.00 30.00 05/06/18 16:00 97 Trach Collar 45 05/06/18 15:00 91 24 116/76 (89) 97 Vapotherm 45.00 30.00 05/06/18 14:42 97 Vapotherm 25.00 40 05/06/18 14:00 77 24 82/40 (54) 99 Vapotherm 45.00 30.00 05/06/18 13:07 80 05/06/18 13:00 80 26 122/62 (82) 96 Vapotherm 45.00 30.00 05/06/18 12:00 97.3 05/06/18 12:00 97 Trach Collar 45 05/06/18 12:00 118 35 159/94 (115) 93 Vapotherm 45.00 30.00 I & O 05/07/18 07:00 Intake Total 1060 ml Output Total 555 ml Balance 505 ml Capillary Refill : Less Than 3 Seconds General Appearance: No Apparent Distress HEENT: PERRL/EOMI Neck: Full Range of Motion Respiratory: Chest Non Tender, Rhonci Cardiovascular: Regular Rate, Rhythm Gastrointestinal: normal bowel sounds, non tender, soft Extremity: Normal Capillary Refill Neurologic/Psychiatric: Disoriented Skin: Normal Color Lymphatic: No Adenopathy Results Lab Laboratory Tests 05/06/18 11:20: Glucometer 206H 05/06/18 12:21: Lab Scanned Report Transfusion Reaction Form 05/06/18 17:04: Glucometer 125H 05/06/18 20:33: Glucometer 137H 05/07/18 00:09: Glucometer 158H 05/07/18 03:25: White Blood Count 7.0, Red Blood Count 2.97L, Hemoglobin 7.3L, Hematocrit 25L, Mean Corpuscular Volume 83, Mean Corpuscular Hemoglobin 25, Mean Corpuscular Hemoglobin Concent 30L, Red Cell Distribution Width 20.7H, Platelet Count 113L, Mean Platelet Volume , Neutrophils (%) (Auto) 71, Lymphocytes (%) (Auto) 17, Monocytes (%) (Auto) 10, Eosinophils (%) (Auto) 2, Basophils (%) (Auto) 0, Neutrophils # (Auto) 4.9, Lymphocytes # (Auto) 1.2, Monocytes # (Auto) 0.7, Eosinophils # (Auto) 0.1, Basophils # (Auto) 0.0, Sodium Level 144, Potassium Level 3.2L, Chloride Level 113H, Carbon Dioxide Level 18L, Anion Gap 13, Blood Urea Nitrogen 19H, Creatinine 1.68H, Estimat Glomerular Filtration Rate 43, BUN/ Creatinine Ratio 11, Glucose Level 149H, Calcium Level 8.1L, Phosphorus Level 2.7, Magnesium Level 2.8H 05/07/18 07:54: Blood Gas Puncture Site L RAD, Blood Gas Patient Temperature 97.9, Arterial Blood pH 7.44H, Arterial Blood Partial Pressure CO2 29L, Arterial Blood Partial Pressure O2 59L, Arterial Blood HCO3 19L, Arterial Blood Total CO2 20.2L, Arterial Blood Oxygen Saturation 88L, Arterial Blood Base Excess -4.2L, Devin Test NA, Blood Gas Ventilator Setting NA, Blood Gas Inspired Oxygen NA 05/07/18 10:16: Blood Gas Puncture Site RT RADIAL, Blood Gas Patient Temperature 97.2, Arterial Blood pH 7.22*L, Arterial Blood Partial Pressure CO2 41, Arterial Blood Partial Pressure O2 108H, Arterial Blood HCO3 16*L, Arterial Blood Total CO2 17.3L, Arterial Blood Oxygen Saturation 98, Arterial Blood Base Excess -10.4L, Devin Test YES-POS, Blood Gas Ventilator Setting YES, Blood Gas Inspired Oxygen 100% 05/07/18 10:52: Glucometer 275H Microbiology 05/02/18 Blood Culture - Preliminary, Resulted No growth 05/02/18 MRSA Screen - Final, Complete MRSA not isolated Assessment/Plan Assessment/Plan Assess & Plan/Chief Complaint GI bleed, hx vocal cord paralysis and permanent trach. has not had colonoscopy before in past. initial NGT out appeared some mixed blood. will proceed with EGD and Colonoscopy on this admisssion. patient severely agitated when sedation weened. Hb stable however does have episodes of hypotension when sedation restarted. will await medical stability then proceed with endoscopy. Clinical Quality Measures DVT/VTE Risk/Contraindication: Risk Factor Score Per Nursin RFS Level Per Nursing on Admit: 4+=Very High THOR PERERA MD May 07, 2018 11:22
--- NOTE | 2018-05-07 14:01 | Diagnostic Imaging Report ---
PROCEDURE: US Venous Lower Ext Antwan. INDICATION: Hyperglycemia, respiratory distress. TECHNIQUE: Grayscale with color-flow and Doppler waveform evaluation of the bilateral lower extremity deep venous systems. CORRELATION STUDY: None FINDINGS: Color and grayscale sonographic images demonstrate no intraluminal defect within the visualized portion of the common femoral, superficial femoral and/or popliteal veins to suggest thrombus formation. These vessels demonstrate normal response to compression and augmentation. No soft tissue fluid collection. IMPRESSION: 1. Negative for deep venous thrombosis of either leg. Dictated by: Dictated on workstation # [id number]
--- NOTE | 2018-05-07 17:18 | Diagnostic Imaging Report ---
PROCEDURE: CT chest without contrast. TECHNIQUE: Multiple contiguous axial images were obtained through the chest without the use of intravenous contrast. Auto Exposure Controls were utilized during the CT exam to meet ALARA standards for radiation dose reduction. INDICATION: Shortness of breath and hypotension. No prior studies are available for comparison. A tracheostomy tube has tip above the jeevan. There is a left upper extremity PICC line with tip at the SVC right atrial junction. There are changes of median sternotomy. The heart appears to be enlarged. No pericardial fluid is seen. There are small bilateral pleural effusions which appeared to be nonloculated. No axillary lymphadenopathy is seen. Mediastinal and hilar evaluation is limited without intravenous contrast. There are mildly prominent lymph nodes in the paratracheal location. Parenchymal evaluation demonstrates some patchy airspace infiltrates in bilateral upper lobes. There is marked consolidation bilateral lower lobes with air bronchograms. Upper abdomen is unremarkable apart from probable small stone within the gallbladder. IMPRESSION: Small bilateral pleural effusions with marked airspace consolidation with air bronchograms bilateral lower lobes as well as patchy airspace infiltrates bilateral upper lobes. Probable reactive lymphadenopathy in the mediastinum. Dictated by: Dictated on workstation # [id number]
[2018-05-07] MEDS: HALOPERIDOL 5 MG/ML (HALDOL) AMP IM SCH (22:34)
[2018-05-07] MEDS: ATORVASTATIN 80 MG (LIPITOR) TABLET PO SCH (22:35)
[2018-05-07] MEDS: rOPINIRole 1 MG (REQUIP) TABLET PO SCH (22:35)
[2018-05-07] MEDS: SERTRALINE 50 MG (ZOLOFT) TABLET PO SCH (22:35)
[2018-05-08] VITALS (35 sets, daily range): BP systolic 93–149; BP diastolic 61–88
[2018-05-08] MEDS: inSUlin ASPART (NovoLOG) 1 UNIT/0.01 ML (CHARGE PER UNIT) SC SCH ×4 (00:44→17:49)
[2018-05-08] MEDS: LORazepam INJ 2 MG/ML (ATIVAN) VIAL IVP PRN ×2 (00:58→11:22)
[2018-05-08] MEDS: PROPOFOL DRIP (ICU) 100 ML IV SCH ×3 (02:43→21:47)
[2018-05-08] MEDS: HYDROmorphone 2 MG/ML VIAL (DILAUDID) IV PRN ×4 (02:44→17:45)
[2018-05-08] MEDS: DEXMEDETOMIDINE INJECTION 200 MCG in NS (IVPB) 50 ML IV SCH ×2 (02:45→06:51)
[2018-05-08 03:33] LABS: BASOPHILS % (AUTO) 0 % (0-10); EOSINOPHILS # (AUTO) 0.1 10^3/uL (0.0-0.3); EOSINOPHILS % (AUTO) 2 % (0-10); HEMATOCRIT 24 % (40-54); HEMOGLOBIN 7.3 G/DL (13.3-17.7); LYMPHOCYTES # (AUTO) 0.6 X 10^3 (1.0-4.0); LYMPHOCYTES % (AUTO) 9 % (12-44); MEAN CORPUSCULAR HGB CONC 30 G/DL (32-36); MEAN CORPUSCULAR VOLUME 82 FL (80-99); MEAN PLATELET VOLUME 12.5 FL (7.4-10.4); MONOCYTES # (AUTO) 0.6 X 10^3 (0.0-1.0); MONOCYTES % (AUTO) 10 % (0-12); NEUTROPHILS # (AUTO) 5.1 X 10^3 (1.8-7.8); NEUTROPHILS % (AUTO) 79 % (42-75); PLATELET COUNT 141 10^3/uL (130-400); RED CELL DISTRIBUTION WIDTH 21.1 % (10.0-14.5); WHITE BLOOD COUNT 6.5 10^3/uL (4.3-11.0)
[2018-05-08 03:34] LABS: ABG BASE EXCESS -2.2 MMOL/L (-2.5-2.5); ABG OXYGEN SATURATION 98 % (94-100); ABG PCO2 32 MMHG (35-45); ABG PH 7.44 (7.37-7.43); ABG PO2 86 MMHG (79-93); ABG TCO2 22.5 MMOL/L (21.0-31.0); ALLENS TEST POSITIVE; INSPIRED O2 30%; MEAN CORPUSCULAR HEMOGLOBIN 24 PG (25-34); PATIENT TEMP 97.6; VENTILATOR YES
[2018-05-08 03:54] LABS: BUN/CREATININE RATIO 15; CALCIUM 8.2 MG/DL (8.5-10.1); CARBON DIOXIDE 20 MMOL/L (21-32); CHLORIDE 112 MMOL/L (98-107); CREATININE SERUM 1.14 MG/DL (0.60-1.30); GFR ESTIMATED > 60; GLUCOSE 133 MG/DL (70-105); MAGNESIUM 2.1 MG/DL (1.8-2.4); PHOSPHORUS 2.4 MG/DL (2.3-4.7); POTASSIUM 3.1 MMOL/L (3.6-5.0); SODIUM 144 MMOL/L (135-145)
[2018-05-08] MEDS: PIPERACILLIN/TAZOBACTAM (BULK) 4.5 GM in NS (IVPB) 100 ML IV SCH ×3 (05:38→21:38)
[2018-05-08] MEDS: oxyCODONE ER 15 MG (oxyCONTIN CR) TAB PO SCH ×2 (05:39→13:00)
[2018-05-08] MEDS: 1/2 NS IV SOLUTION 1,000 ML IV SCH ×2 (05:39→15:40)
[2018-05-08] MEDS: KCL 20 MEQ TAB (K-DUR) PO SCH (05:39)
[2018-05-08] MEDS: MAGNESIUM 1 GM/100 ML IVPB 100 ML IV SCH (05:39)
[2018-05-08] MEDS: POTASSIUM CL 10MEQ/50ML IVPB 50 ML IV SCH ×4 (05:39→07:35)
[2018-05-08] MEDS: HALOPERIDOL 5 MG/ML (HALDOL) AMP IM SCH ×2 (06:41→21:37)
[2018-05-08] MEDS ORDERED: RT-LEVALBUTEROL (XOPENEX) 1.25 MG/3 ML NEB NON-FORMULARY INH PRN (07:00)
--- NOTE | 2018-05-08 07:02 | Pulmonary Progress Note ---
Subjective Time Seen by a Provider: 07:04 Subjective/Events-last exam Pt is sedated on vent. Sepsis Event Evaluation Height, Weight, BMI Height: 6'1.00" Weight: 248lbs. 0.0oz. [id number]; 31.7 BMI Method:Estimated Focused Exam Lactate Level 05/07/18 11:55: Lactic Acid Level 1.35 Exam Exam Vital Signs Date Time Temp Pulse Resp B/P (MAP) Pulse Ox O2 Delivery O2 Flow Rate FiO2 05/08/18 06:39 64 21 100 25 05/08/18 06:00 64 17 98/65 (76) 100 Mechanical Ventilator 30.00 05/08/18 05:00 90 36 134/82 (99) 100 Mechanical Ventilator 30.00 05/08/18 04:00 99 Mechanical Ventilator 30 05/08/18 04:00 99 34 141/82 (101) 100 Mechanical Ventilator 30.00 05/08/18 03:00 96 44 149/88 (108) 100 Mechanical Ventilator 30.00 05/08/18 02:43 133/74 05/08/18 02:10 96 26 100 30 05/08/18 02:00 101 26 136/77 (96) 100 Mechanical Ventilator 30.00 05/08/18 01:36 30 05/08/18 01:00 98 05/08/18 01:00 93 31 136/77 (96) 98 Mechanical Ventilator 30.00 05/08/18 00:27 90 25 100 50 05/08/18 00:00 99 Mechanical Ventilator 50 05/08/18 00:00 86 39 129/79 (96) 100 Mechanical Ventilator 40.00 05/07/18 23:00 75 21 124/81 (95) 100 Mechanical Ventilator 40.00 05/07/18 22:34 119/72 05/07/18 22:00 80 22 113/74 (87) 100 Mechanical Ventilator 40.00 05/07/18 21:00 80 23 118/77 (91) 100 Mechanical Ventilator 40.00 05/07/18 20:44 82 30 100 50 05/07/18 20:00 99 Mechanical Ventilator 50 05/07/18 20:00 74 17 127/80 (96) 100 Mechanical Ventilator 80.00 05/07/18 19:00 71 16 120/74 (89) 100 Mechanical Ventilator 80.00 05/07/18 19:00 73 05/07/18 18:45 70 16 100 60 05/07/18 18:00 70 16 106/70 (82) 100 Mechanical Ventilator 80.00 05/07/18 17:26 97.3 05/07/18 17:00 73 16 115/74 (88) 100 Mechanical Ventilator 80.00 05/07/18 16:00 100 Mechanical Ventilator 60 05/07/18 16:00 75 27 115/81 (92) Mechanical Ventilator 80.00 05/07/18 15:59 75 21 100 80 05/07/18 15:00 75 19 118/78 (91) 100 Mechanical Ventilator 80.00 05/07/18 14:29 97.5 05/07/18 14:00 88 18 131/93 (106) 100 Mechanical Ventilator 80.00 05/07/18 13:18 75 05/07/18 13:00 70 21 106/71 (83) 100 Mechanical Ventilator 80.00 05/07/18 12:45 Mechanical Ventilator 80.00 05/07/18 12:37 67 21 100 100 05/07/18 12:00 100 Mechanical Ventilator 100 05/07/18 12:00 97.9 05/07/18 12:00 61 17 88/59 (69) 100 Mechanical Ventilator 100.00 05/07/18 11:08 97.3 05/07/18 11:00 72 22 96/80 (85) 100 Mechanical Ventilator 100.00 05/07/18 10:50 97.3 05/07/18 10:15 85 31 92 100 05/07/18 10:10 Mechanical Ventilator 100.00 05/07/18 09:00 82 37 108/64 (79) 92 Vapotherm 21.00 25.00 05/07/18 08:00 92 26 127/87 (100) 97 Vapotherm 21.00 25.00 05/07/18 08:00 97 Trach Collar 45 05/07/18 07:01 69 05/07/18 07:00 69 18 112/69 (83) 97 Vapotherm 21.00 25.00 I & O 05/08/18 07:00 Intake Total 1700 ml Output Total 1475 ml Balance 225 ml Height & Weight Height: 6'1.00" Weight: 248lbs. 0.0oz. [id number]; 31.7 BMI Method:Estimated General Appearance: No Apparent Distress HEENT: PERRL/EOMI Neck: Full Range of Motion Respiratory: Chest Non Tender, Rhonci Cardiovascular: Regular Rate, Rhythm Capillary Refill: Less Than 3 Seconds Gastrointestinal: normal bowel sounds, non tender, soft Extremity: Normal Capillary Refill Neurologic/Psychiatric: Disoriented Skin: Normal Color Lymphatic: No Adenopathy Results Lab Laboratory Tests 05/07/18 03:25 05/08/18 03:20 Assessment/Plan Assessment/Plan Chronic respiratory failure with tracheostomy -sedated on vent -D/C propofol -Continue precedex -Pt is probably going to need NG tube vs PEG tube unless he wakes up enough to eat. -Will start tube feeds if NG is placed. -Haldol -Oxygen -Monitor - Continue Zosyn x 7days. Hyperglycemia - with hypernatremia -IVF to 1/2 NS and monitor -24units of Levemir -SSI C Psychosis - pt gets very agitated -Pt is not able to take PO meds currently -Wean precedex to PRN -Ativan PRN --PRN Dilaudid Hypernatremia -Change IVF to 1/2 NS AKF -IVF -Monitor GIB -- lower GIB vs major upper GIB ( BUN is 101) s/p total 4 units. with 1 unit last night -PT still having Melanotic stools -Protonix BID IV -Surgery is following -- possible EGD today. -Check H&H Q 6 -IVF ACOSTA FRAGA DO May 08, 2018 07:02
--- NOTE | 2018-05-08 07:49 | Diagnostic Imaging Report ---
INDICATION: Hypotension. Trach patient. Comparison with 05/07/2018. FINDINGS: Tracheostomy remains in good position overlying the tracheal shadow. Median sternotomy with cardiomegaly again noted. Patchy bilateral scattered infiltrates are again noted. There has been some decrease in pulmonary venous congestive changes in the upper lungs. No definite pleural effusion. IMPRESSION: Slight improvement has occurred with some decrease in infiltrates in the upper lung. Persistent bilateral lower lobe patchy infiltrates remain present. Tracheostomy tube good position. Dictated by: Dictated on workstation # [id number]
[2018-05-08] MEDS: PREGABALIN 75 MG (LYRICA) CAP PO SCH ×3 (07:58→21:17)
[2018-05-08] MEDS: MICONAZOLE 2% POWDER (DESENEX AF) 90 GM TOP SCH ×2 (08:00→21:48)
[2018-05-08] MEDS: PANTOPRAZOLE 40 MG (PROTONIX) VIAL IV SCH ×2 (08:00→21:36)
--- NOTE | 2018-05-08 08:01 | Cardiology Progress Note ---
Subjective Date Seen by Provider: May 08, 2018 Time Seen by Provider: 07:59 Subjective/Events-last exam patient is sedated, ventilator dependent, continued to be agitated once the sedation is off Review of Systems General: Other (unable to provide review of system due to current condition) Focused Exam Lactate Level 05/07/18 11:55: Lactic Acid Level 1.35 Objective-Cardiology Exam Last Set of Vital Signs Vital Signs 05/08/18 05/08/18 04:00 06:39 Temp 97.5 FiO2 25 Capillary Refill : Less Than 3 Seconds I&O Intake and Output 05/08/18 00:00 Intake Total 2060 ml Output Total 805 ml Balance 1255 ml IV Total 2060 ml Output Urine Total 805 ml # Bowel Movements 1 General: Alert, Moderate Distress, Other (Sedated) HEENT: Atraumatic Neck: Supple, No Thyromegaly Lungs: Normal Air Movement, Other (bilateral rhonchi) Heart: Regular Rate, Normal S1, Normal S2 Abdomen: Normal Bowel Sounds, Soft, No Tenderness Extremities: No Clubbing, Other (trace edema) Skin: No Rashes Neuro: Normal Tone, Other (not following commands) Psych/Mental Status: Other (not responding to questions appropriately) Results Lab Laboratory Tests 05/08/18 03:20 A/P-Cardiology Admission Diagnosis Acute respiratory failure GI bleed Hypovolemic shock Coronary artery disease Assessment/Plan Acute on chronic respiratory failure, history of tracheostomy due to vocal cord injury during bypass surgery, has been combative and agitated once the sedation is off, he is back on a ventilator at this time, sedated, maintained on Precedex. Not responding to verbal stimuli. Managed by Dr. Iglesias Change in mental status, agitation and confusion, probably secondary to hypoxemia, sedated, managed by primary care team Status post acute renal failure, continue on IV fluid and monitor renal function Status post hypotension, blood pressure is better, off old pressors and receiving IV fluid as needed, continue to monitor blood pressure Anemia with GI bleed received multiple blood transfusion, possible endoscopy Coronary artery disease, history of CABG 4 done in 2008 with paralyzed vocal cord and multiple throat surgeries for removal of vocal cord resulted in tracheostomy in 2008. Acute psychosis, receiving Haldol Peripheral arterial disease by history, monitor for now Hyperglycemia, history of type II diabetes. Admitted with blood sugar around 900, better control at this time. Continue to monitor Chronic pain syndrome, osteoarthritis History of testicular hypofunction Gastroesophageal reflux disease Anxiety Clinical Quality Measures DVT/VTE Risk/Contraindication: Risk Factor Score Per Nursin RFS Level Per Nursing on Admit: 4+=Very High OSMAR JONES MD May 08, 2018 08:01
[2018-05-08] MEDS ORDERED: DEXMEDETOMIDINE INJECTION 1,000 MCG in NS (IVPB) 250 ML IV SCH (08:45)
--- NOTE | 2018-05-08 09:03 | Progress Note-Hospitalist ---
Subjective HPI/CC On Admission Date Seen by Provider: May 08, 2018 Time Seen by Provider: 09:15 Pt is a 52yoCM with a PMH of IDDMII, PVD, trach dependency from vocal cord paralysis who presented to the ER due elevated blood sugar. He is unable to provide any history due to altered mentation but his fiance is at bedside who helps fill in some details. reported he was normal 2 days ago and when she returned home from work at 4pm yesterday he was already asleep. She did not think much of this but she awoke this morning at 230am and he seemed "out of it " so she checked his blood sugar and it read over 600 so she brought him to the ER. He was found to have a BS of >900 and was hypotensive on arrival. He also had an CARLIN with significant uremia and hyperkalemia. He was transferred here for higher level of care. En route he had a large bloody bowel movement. His fiance is unsure if he had any other bloody bowel movements. Subjective/Events-last exam Pt maintained on ventilator Metabolic acidosis responded to bicarb drip Did have CPAP on ventilator for wean protocol but failed Precedex only on and no Diprivan Urinary output responded to a liter bolus of lactated ringers Focused Exam Lactate Level 05/07/18 11:55: Lactic Acid Level 1.35 Objective Exam Vital Signs Vital Signs Date Time Temp Pulse Resp B/P (MAP) Pulse Ox O2 Delivery O2 Flow Rate FiO2 05/08/18 20:01 60 20 100 40 05/08/18 18:00 102/61 (75) Mechanical Ventilator 50.00 05/08/18 17:44 97.3 Capillary Refill : Less Than 3 Seconds General Appearance: No Apparent Distress, Chronically ill, Other (on vent sedated) HEENT: PERRL/EOMI Neck: Full Range of Motion Respiratory: Chest Non Tender, Rhonci Cardiovascular: Regular Rate, Rhythm Gastrointestinal: Normal Bowel Sounds, Non Tender, Soft Genital/Rectal: Other (benson in place) Extremity: Normal Capillary Refill Neurologic/Psychiatric: Disoriented Skin: Normal Color Lymphatic: No Adenopathy Results/Procedures Lab Laboratory Tests 05/08/18 03:20 Patient resulted labs reviewed. Imaging: Reviewed Imaging Report Assessment/Plan Assessment and Plan Assess & Plan/Chief Complaint Assessment: Multisystem organ failure VDRF CAD previous CABG Trach permanent Plan: Maintain vent Prognosis guarded Critical Care Critically Ill Patient Diagnosis/Problems Diagnosis/Problems (1) Hyperosmolar non-ketotic state in patient with type 2 diabetes mellitus Status: Resolved Resolution Date/Time: 05/05/18 @ 10:19 (2) Tracheostomy present Status: Chronic (3) Shock Status: Resolved Resolution Date/Time: 05/05/18 @ 10:12 (4) Hyperkalemia Status: Resolved Resolution Date/Time: 05/05/18 @ 10:20 (5) Acute respiratory failure Status: Resolved Qualifiers: Respiratory failure complication: unspecified whether with hypoxia or hypercapnia Qualified Codes: J96.00 - Acute respiratory failure, unspecified whether with hypoxia or hypercapnia Resolution Date/Time: 05/05/18 @ 10:19 (6) Squamous cell carcinoma of skin of right middle finger (7) HHS (hypothenar hammer syndrome) Status: Acute (8) CAD (coronary artery disease) Qualifiers: Coronary Disease-Associated Artery/Lesion type: bypass graft [place] vs. transplanted heart: [place] heart Associated angina: angina presence unspecified Qualified Codes: I25.810 - Atherosclerosis of coronary artery bypass graft(s) without angina pectoris (9) Lactic acidosis Status: Resolved Resolution Date/Time: 05/03/18 @ 07:31 (10) DKA (diabetic ketoacidoses) Clinical Quality Measures DVT/VTE Risk/Contraindication: Risk Factor Score Per Nursin RFS Level Per Nursing on Admit: 4+=Very High ELIZABETH JANSEN DO May 08, 2018 09:03
[2018-05-08] MEDS: RT-IPRATROPIUM (ATROVENT) 0.5MG/2.5ML AMP IH SCH ×4 (10:23→22:39)
[2018-05-08] MEDS: RT-BUDESONIDE NEBS 0.5 MG/2ML (PULMICORT) AMP INH SCH ×2 (10:23→20:01)
[2018-05-08] MEDS: HALOPERIDOL 5 MG/ML (HALDOL) AMP IV PRN ×2 (11:22→17:45)
[2018-05-08 11:25] LABS: ABG OXYGEN SATURATION 90 % (94-100); ABG PCO2 31 MMHG (35-45); ABG PH 7.42 (7.37-7.43); ABG PO2 82 MMHG (79-93); ABG TCO2 20.7 MMOL/L (21.0-31.0)
[2018-05-08 11:26] LABS: ALLENS TEST YES-POS; INSPIRED O2 30%; PATIENT TEMP 97.5; VENTILATOR YES
--- NOTE | 2018-05-08 11:50 | NUR ---
Received a call from Dr Iglesias to update the precedex order to remove the titration parameters. He wanted it to run at 1.5 mcg/kg/hr with no titrations - any adjustments need to be called/approved by him.
[2018-05-08] MEDS: DEXMEDETOMIDINE INJECTION 1,000 MCG in NS (IVPB) 250 ML IV SCH ×3 (11:55→21:47)
--- NOTE | 2018-05-08 11:56 | Pulmonary Progress Note ---
Standard Progress Note Progress Notes Time Seen by Provider: 11:51 PT is now on CPAP mode with PS 10 and peep of 5. Rn states pt was awake and agitated. currently pt is unresponsive to painful stimuli. Pt was given Ativan and Dilaudid then Precedex was turned back to 1.5mcg/kg/hr. Rn states pt's bp decreased to 70's prior to him turning Precedex down. Currently BP is 147/81. Assessment & Plan Chronic respiratory failure with tracheostomy -sedated on vent -D/C propofol -Continue precedex at 1.5mcg/kg/hr -D/C Ativan secondary to over sedation. -Pt is probably going to need NG tube vs PEG tube unless he wakes up enough to eat. -Will start tube feeds if NG is placed. -Haldol -Oxygen -Monitor - Continue Zosyn x 7days. Hyperglycemia - with hypernatremia -IVF to 1/2 NS and monitor -24units of Levemir -SSI C Psychosis - pt gets very agitated -Pt is not able to take PO meds currently --PRN Dilaudid , and haldol Hypernatremia -Change IVF to 1/2 NS AKF -IVF -Monitor GIB -- lower GIB vs major upper GIB ( BUN is 101) s/p total 4 units. with 1 unit last night -PT still having Melanotic stools -Protonix BID IV -Surgery is following -- possible EGD today. -Check H&H Q 6 -IVF Critical Care: Critically Ill Patient Time spent with patient (mins): 30 Focused Exam Lactate Level 05/07/18 11:55: Lactic Acid Level 1.35 ACOSTA FRAGA DO May 08, 2018 11:56
--- NOTE | 2018-05-08 13:36 | Progress Note (SOAP) ---
Subjective Date Seen by a Provider: May 08, 2018 Time Seen by a Provider: 13:00 Subjective/Events-last exam on vent ween protocol. had had recurrent issues with severe agitation uf unknown etiology. Hb stable however has had melanotic stools. on PPI IV BID. Focused Exam Lactate Level 05/07/18 11:55: Lactic Acid Level 1.35 Objective Exam Vital Signs Date Time Temp Pulse Resp B/P (MAP) Pulse Ox O2 Delivery O2 Flow Rate FiO2 05/08/18 13:00 70 05/08/18 12:11 70 15 100 30 05/08/18 12:00 72 14 111/72 (85) 99 Mechanical Ventilator 30.00 05/08/18 12:00 99 Mechanical Ventilator 30 05/08/18 12:00 97.6 05/08/18 11:54 97.6 05/08/18 11:23 97.5 05/08/18 11:04 85 21 99 21 05/08/18 11:00 125 35 147/81 (103) 95 Mechanical Ventilator 30.00 05/08/18 10:32 99 Mechanical Ventilator 21 05/08/18 10:23 82 27 99 21 05/08/18 10:00 75 23 123/75 (91) 100 Mechanical Ventilator 30.00 05/08/18 09:00 80 20 122/82 (95) 100 Mechanical Ventilator 30.00 05/08/18 08:07 84 26 99 25 05/08/18 08:00 84 23 126/78 (94) 99 Mechanical Ventilator 30.00 05/08/18 08:00 99 Mechanical Ventilator 30 05/08/18 07:00 91 18 117/79 (92) 93 Mechanical Ventilator 30.00 05/08/18 07:00 79 05/08/18 06:39 64 21 100 25 05/08/18 06:00 64 17 98/65 (76) 100 Mechanical Ventilator 30.00 05/08/18 05:00 90 36 134/82 (99) 100 Mechanical Ventilator 30.00 05/08/18 04:00 99 Mechanical Ventilator 30 05/08/18 04:00 99 34 141/82 (101) 100 Mechanical Ventilator 30.00 05/08/18 04:00 97.5 05/08/18 03:00 96 44 149/88 (108) 100 Mechanical Ventilator 30.00 05/08/18 02:43 133/74 05/08/18 02:10 96 26 100 30 05/08/18 02:00 101 26 136/77 (96) 100 Mechanical Ventilator 30.00 05/08/18 01:36 30 05/08/18 01:00 98 05/08/18 01:00 93 31 136/77 (96) 98 Mechanical Ventilator 30.00 05/08/18 00:27 90 25 100 50 05/08/18 00:00 99 Mechanical Ventilator 50 05/08/18 00:00 97.1 05/08/18 00:00 86 39 129/79 (96) 100 Mechanical Ventilator 40.00 05/07/18 23:00 75 21 124/81 (95) 100 Mechanical Ventilator 40.00 05/07/18 22:34 119/72 05/07/18 22:00 80 22 113/74 (87) 100 Mechanical Ventilator 40.00 05/07/18 21:00 80 23 118/77 (91) 100 Mechanical Ventilator 40.00 05/07/18 20:44 82 30 100 50 05/07/18 20:00 96.2 05/07/18 20:00 99 Mechanical Ventilator 50 05/07/18 20:00 74 17 127/80 (96) 100 Mechanical Ventilator 80.00 05/07/18 19:00 71 16 120/74 (89) 100 Mechanical Ventilator 80.00 05/07/18 19:00 73 05/07/18 18:45 70 16 100 60 05/07/18 18:00 70 16 106/70 (82) 100 Mechanical Ventilator 80.00 05/07/18 17:26 97.3 05/07/18 17:00 73 16 115/74 (88) 100 Mechanical Ventilator 80.00 05/07/18 16:00 100 Mechanical Ventilator 60 05/07/18 16:00 75 27 115/81 (92) Mechanical Ventilator 80.00 05/07/18 15:59 75 21 100 80 05/07/18 15:00 75 19 118/78 (91) 100 Mechanical Ventilator 80.00 05/07/18 14:29 97.5 05/07/18 14:00 88 18 131/93 (106) 100 Mechanical Ventilator 80.00 I & O 05/08/18 07:00 Intake Total 1700 ml Output Total 1475 ml Balance 225 ml Capillary Refill : Less Than 3 Seconds General Appearance: No Apparent Distress HEENT: PERRL/EOMI Neck: Full Range of Motion Respiratory: Chest Non Tender, Rales Cardiovascular: Regular Rate, Rhythm Gastrointestinal: normal bowel sounds, non tender, soft Extremity: Normal Capillary Refill Neurologic/Psychiatric: Disoriented Skin: Normal Color Lymphatic: No Adenopathy Results Lab Laboratory Tests 05/07/18 17:21: Glucometer 159H 05/07/18 22:33: Glucometer 155H 05/08/18 00:39: Glucometer 130H 05/08/18 03:20: White Blood Count 6.5, Red Blood Count 2.98L, Hemoglobin 7.3L, Hematocrit 24L, Mean Corpuscular Volume 82, Mean Corpuscular Hemoglobin 24L, Mean Corpuscular Hemoglobin Concent 30L, Red Cell Distribution Width 21.1H, Platelet Count 141, Mean Platelet Volume 12.5H, Neutrophils (%) (Auto) 79H, Lymphocytes (%) (Auto) 9L, Monocytes (%) (Auto) 10, Eosinophils (%) (Auto) 2, Basophils (%) (Auto) 0, Neutrophils # (Auto) 5.1, Lymphocytes # (Auto) 0.6L, Monocytes # (Auto) 0.6, Eosinophils # (Auto) 0.1, Basophils # (Auto) 0.0, Blood Gas Puncture Site RIGHT RADIAL, Blood Gas Patient Temperature 97.6, Arterial Blood pH 7.44H, Arterial Blood Partial Pressure CO2 32L, Arterial Blood Partial Pressure O2 86, Arterial Blood HCO3 22L, Arterial Blood Total CO2 22.5, Arterial Blood Oxygen Saturation 98, Arterial Blood Base Excess -2.2, Devin Test POSITIVE, Blood Gas Ventilator Setting YES, Blood Gas Inspired Oxygen 30%, Sodium Level 144, Potassium Level 3.1L, Chloride Level 112H, Carbon Dioxide Level 20L, Anion Gap 12, Blood Urea Nitrogen 17, Creatinine 1.14, Estimat Glomerular Filtration Rate > 60, BUN/ Creatinine Ratio 15, Glucose Level 133H, Calcium Level 8.2L, Phosphorus Level 2.4, Magnesium Level 2.1 05/08/18 11:03: Glucometer 174H 05/08/18 11:15: Blood Gas Puncture Site RT RAD, Blood Gas Patient Temperature 97.5, Arterial Blood pH 7.42, Arterial Blood Partial Pressure CO2 31L, Arterial Blood Partial Pressure O2 82, Arterial Blood HCO3 20L, Arterial Blood Total CO2 20.7L, Arterial Blood Oxygen Saturation 90L, Arterial Blood Base Excess -4.0L, Devin Test YES-POS, Blood Gas Ventilator Setting YES, Blood Gas Inspired Oxygen 30% Microbiology 05/02/18 Blood Culture - Preliminary, Resulted No growth 05/07/18 Gram Stain - Final, Resulted 05/07/18 Sputum Culture - Preliminary, Resulted Pseudomonas aeruginosa Assessment/Plan Assessment/Plan Assess & Plan/Chief Complaint GI bleed, hx vocal cord paralysis and permanent trach. has not had colonoscopy before in past. initial NGT out appeared some mixed blood. will proceed with EGD and Colonoscopy on this admisssion. patient severely agitated when sedation weened. Hb stable however does have episodes of hypotension when sedation restarted. will await medical stability then proceed with endoscopy. will plan for just EGD on (05/09). Clinical Quality Measures DVT/VTE Risk/Contraindication: Risk Factor Score Per Nursin RFS Level Per Nursing on Admit: 4+=Very High THOR PERERA MD May 08, 2018 13:36
[2018-05-08] MEDS ORDERED: PROPOFOL DRIP (ICU) 100 ML IV ONE (15:23)
[2018-05-08] MEDS: rOPINIRole 1 MG (REQUIP) TABLET PO SCH (21:17)
[2018-05-08] MEDS: ATORVASTATIN 80 MG (LIPITOR) TABLET PO SCH (21:17)
[2018-05-08] MEDS: SERTRALINE 50 MG (ZOLOFT) TABLET PO SCH (21:18)
[2018-05-09] VITALS (32 sets, daily range): BP systolic 100–161; BP diastolic 67–116
[2018-05-09] MEDS: oxyCODONE ER 15 MG (oxyCONTIN CR) TAB PO SCH ×5 (00:18→22:39)
[2018-05-09] MEDS: inSUlin ASPART (NovoLOG) 1 UNIT/0.01 ML (CHARGE PER UNIT) SC SCH ×5 (00:21→23:40)
[2018-05-09] MEDS: 1/2 NS IV SOLUTION 1,000 ML IV SCH ×2 (01:43→16:06)
[2018-05-09] MEDS: RT-IPRATROPIUM (ATROVENT) 0.5MG/2.5ML AMP IH SCH ×6 (02:06→22:12)
[2018-05-09] MEDS: PROPOFOL DRIP (ICU) 100 ML IV SCH ×4 (02:29→23:51)
[2018-05-09 03:44] LABS: ABG BASE EXCESS -2.3 MMOL/L (-2.5-2.5); ABG OXYGEN SATURATION 97 % (94-100); ABG PCO2 31 MMHG (35-45); ABG PH 7.45 (7.37-7.43); ABG PO2 72 MMHG (79-93); ABG TCO2 22.3 MMOL/L (21.0-31.0)
[2018-05-09 03:45] LABS: ALLENS TEST YES-POS; BASOPHILS % (AUTO) 0 % (0-10); EOSINOPHILS # (AUTO) 0.2 10^3/uL (0.0-0.3); EOSINOPHILS % (AUTO) 3 % (0-10); HEMATOCRIT 24 % (40-54); HEMOGLOBIN 7.2 G/DL (13.3-17.7); LYMPHOCYTES # (AUTO) 1.1 X 10^3 (1.0-4.0); LYMPHOCYTES % (AUTO) 19 % (12-44); MEAN CORPUSCULAR HEMOGLOBIN 24 PG (25-34); MEAN CORPUSCULAR HGB CONC 30 G/DL (32-36); MEAN CORPUSCULAR VOLUME 82 FL (80-99); MEAN PLATELET VOLUME 12.2 FL (7.4-10.4); MONOCYTES # (AUTO) 0.6 X 10^3 (0.0-1.0); MONOCYTES % (AUTO) 11 % (0-12); NEUTROPHILS # (AUTO) 3.7 X 10^3 (1.8-7.8); NEUTROPHILS % (AUTO) 66 % (42-75); PLATELET COUNT 127 10^3/uL (130-400); RED CELL DISTRIBUTION WIDTH 20.7 % (10.0-14.5); WHITE BLOOD COUNT 5.6 10^3/uL (4.3-11.0)
[2018-05-09 03:46] LABS: INSPIRED O2 30%; PATIENT TEMP 96.6; VENTILATOR YES
[2018-05-09] MEDS: DEXMEDETOMIDINE INJECTION 1,000 MCG in NS (IVPB) 250 ML IV SCH ×4 (03:54→22:09)
[2018-05-09 04:29] LABS: BUN/CREATININE RATIO 15; CALCIUM 8.2 MG/DL (8.5-10.1); CARBON DIOXIDE 20 MMOL/L (21-32); CHLORIDE 112 MMOL/L (98-107); CREATININE SERUM 1.11 MG/DL (0.60-1.30); GFR ESTIMATED > 60; GLUCOSE 174 MG/DL (70-105); MAGNESIUM 2.1 MG/DL (1.8-2.4); PHOSPHORUS 2.4 MG/DL (2.3-4.7); POTASSIUM 3.1 MMOL/L (3.6-5.0); SODIUM 142 MMOL/L (135-145)
[2018-05-09] MEDS: KCL 20 MEQ TAB (K-DUR) PO SCH (04:43)
[2018-05-09] MEDS: MAGNESIUM 1 GM/100 ML IVPB 100 ML IV SCH (04:43)
[2018-05-09] MEDS ORDERED: FUROSEMIDE 40 MG/4 ML INJ (LASIX) IVP ONE (06:15)
--- NOTE | 2018-05-09 06:18 | Pulmonary Progress Note ---
Subjective Time Seen by a Provider: 07:17 Subjective/Events-last exam Pt sedated on vent and unresponsive. Sepsis Event Evaluation Height, Weight, BMI Height: 6'1.00" Weight: 248lbs. 0.0oz. 112.499908cv; 31.7 BMI Method:Estimated Focused Exam Lactate Level 05/07/18 11:55: Lactic Acid Level 1.35 Exam Exam Vital Signs Date Time Temp Pulse Resp B/P (MAP) Pulse Ox O2 Delivery O2 Flow Rate FiO2 05/09/18 04:09 58 25 97 30 05/09/18 04:00 99 Mechanical Ventilator 30 05/09/18 04:00 96.6 05/09/18 03:00 59 25 119/75 (90) 92 Mechanical Ventilator 30.00 05/09/18 02:29 118/71 05/09/18 02:06 59 23 92 30 05/09/18 02:00 59 25 118/71 (87) 92 Mechanical Ventilator 30.00 05/09/18 01:00 59 23 114/69 (84) 94 Mechanical Ventilator 30.00 05/09/18 01:00 60 05/09/18 00:19 59 24 95 30 05/09/18 00:00 99 Mechanical Ventilator 30 05/09/18 00:00 59 23 110/67 (81) 93 Mechanical Ventilator 30.00 05/09/18 00:00 95.5 05/08/18 23:00 60 22 107/65 (79) 94 Mechanical Ventilator 30.00 05/08/18 22:39 60 24 96 30 05/08/18 22:00 60 22 103/63 (76) 100 Mechanical Ventilator 30.00 05/08/18 21:47 105/63 05/08/18 21:00 60 23 104/67 (79) 100 Mechanical Ventilator 30.00 05/08/18 20:10 100 Mechanical Ventilator 30.00 05/08/18 20:01 60 20 100 40 05/08/18 20:00 96.5 05/08/18 20:00 99 Mechanical Ventilator 30 05/08/18 20:00 60 19 102/68 (79) 100 Mechanical Ventilator 50.00 05/08/18 19:00 60 16 99/63 (75) 100 Mechanical Ventilator 50.00 05/08/18 19:00 61 05/08/18 18:33 60 18 100 50 05/08/18 18:00 61 16 102/61 (75) 100 Mechanical Ventilator 50.00 05/08/18 17:44 97.3 05/08/18 17:00 62 17 109/65 (80) 100 Mechanical Ventilator 50.00 05/08/18 16:16 65 19 100 50 05/08/18 16:00 99 Mechanical Ventilator 30 05/08/18 16:00 70 20 119/64 (82) 99 Mechanical Ventilator 50.00 05/08/18 15:39 97.3 05/08/18 15:12 66 13 99 21 05/08/18 15:00 67 7 97/70 (79) 97 Mechanical Ventilator 30.00 05/08/18 14:00 70 17 110/68 (82) 93 Mechanical Ventilator 30.00 05/08/18 13:00 73 12 108/68 (81) 97 Mechanical Ventilator 30.00 05/08/18 13:00 70 05/08/18 12:11 70 15 100 30 05/08/18 12:00 72 14 111/72 (85) 99 Mechanical Ventilator 30.00 05/08/18 12:00 99 Mechanical Ventilator 30 05/08/18 12:00 97.6 05/08/18 11:54 97.6 05/08/18 11:23 97.5 05/08/18 11:04 85 21 99 21 05/08/18 11:00 125 35 147/81 (103) 95 Mechanical Ventilator 30.00 05/08/18 10:32 99 Mechanical Ventilator 21 05/08/18 10:23 82 27 99 21 05/08/18 10:00 75 23 123/75 (91) 100 Mechanical Ventilator 30.00 05/08/18 09:00 80 20 122/82 (95) 100 Mechanical Ventilator 30.00 05/08/18 08:07 84 26 99 25 05/08/18 08:00 84 23 126/78 (94) 99 Mechanical Ventilator 30.00 05/08/18 08:00 99 Mechanical Ventilator 30 05/08/18 07:00 91 18 117/79 (92) 93 Mechanical Ventilator 30.00 05/08/18 07:00 79 05/08/18 06:39 64 21 100 25 I & O 05/09/18 07:00 Intake Total 1840 ml Output Total 925 ml Balance 915 ml Height & Weight Height: 6'1.00" Weight: 248lbs. 0.0oz. 112.529929qk; 31.7 BMI Method:Estimated General Appearance: No Apparent Distress, Chronically ill, Other (on vent sedated) HEENT: PERRL/EOMI Neck: Full Range of Motion Respiratory: Chest Non Tender, Rhonci Cardiovascular: Regular Rate, Rhythm Capillary Refill: Less Than 3 Seconds Gastrointestinal: normal bowel sounds, non tender, soft Extremity: Normal Capillary Refill Neurologic/Psychiatric: Disoriented Skin: Normal Color Lymphatic: No Adenopathy Results Lab Laboratory Tests 05/08/18 03:20 05/09/18 03:37 Assessment/Plan Assessment/Plan Chronic respiratory failure with tracheostomy -sedated on vent -D/C propofol -Change vent to SIMV/PS -Repeat ABG later today -Continue precedex -Pt is probably going to need NG tube vs PEG tube unless he wakes up enough to eat. -Will start tube feeds if NG is placed. -Haldol -Oxygen -Monitor - Continue Zosyn x 7days. Pulmonary edema -Will give lasix 60mg IV x 1 Hyperglycemia - with hypernatremia -IVF to 1/2 NS and monitor -24units of Levemir -SSI C Psychosis - pt gets very agitated -Pt is not able to take PO meds currently -Wean precedex to PRN -PRN Haldol --PRN Dilaudid Hypernatremia -Change IVF to 1/2 NS AKF -IVF -Monitor GIB -- lower GIB vs major upper GIB ( BUN is 101) s/p total 4 units. with 1 unit last night -PT still having Melanotic stools -Protonix BID IV -Check H&H Q 6 -IVF ACOSTA FRAGA DO May 09, 2018 06:18
[2018-05-09] MEDS: PIPERACILLIN/TAZOBACTAM (BULK) 4.5 GM in NS (IVPB) 100 ML IV SCH (06:37)
[2018-05-09] MEDS: POTASSIUM CL 10MEQ/50ML IVPB 50 ML IV SCH ×9 (06:38→14:26)
[2018-05-09] MEDS: RT-BUDESONIDE NEBS 0.5 MG/2ML (PULMICORT) AMP INH SCH ×2 (07:26→18:30)
--- NOTE | 2018-05-09 07:42 | Cardiology Progress Note ---
Subjective Date Seen by Provider: May 09, 2018 Time Seen by Provider: 07:41 Subjective/Events-last exam patient is laying down in bed, sedated and ventilated Review of Systems General: Other (unable to provide review of system due to current condition) Focused Exam Lactate Level 05/07/18 11:55: Lactic Acid Level 1.35 Objective-Cardiology Exam Last Set of Vital Signs Vital Signs 05/09/18 05/09/18 05/09/18 04:00 06:00 07:26 Temp 96.6 Pulse 67 Resp 28 B/P (MAP) 117/70 (86) Pulse Ox 97 O2 Delivery Mechanical Ventilator O2 Flow Rate 30.00 FiO2 30 Capillary Refill : Less Than 3 Seconds I&O Intake and Output 05/09/18 00:00 Intake Total 360 ml Output Total 1600 ml Balance -1240 ml Intake Oral 0 ml IV Total 360 ml Output Urine Total 1600 ml General: Alert, Moderate Distress, Other (Sedated) HEENT: Atraumatic Neck: Supple, No Thyromegaly Lungs: Normal Air Movement, Other (bilateral rhonchi) Heart: Regular Rate, Normal S1, Normal S2 Abdomen: Normal Bowel Sounds, Soft, No Tenderness Extremities: No Clubbing, Other (trace edema) Skin: No Rashes Neuro: Normal Tone, Other (not following commands) Psych/Mental Status: Other (not responding to questions appropriately) Results Lab Laboratory Tests 05/09/18 03:37 A/P-Cardiology Admission Diagnosis Acute respiratory failure GI bleed Hypovolemic shock Coronary artery disease Assessment/Plan Acute on chronic respiratory failure, history of tracheostomy due to vocal cord injury during bypass surgery, has been combative and agitated once the sedation is off, he is back on a ventilator at this time, sedated. Managed by Dr. Iglesias Change in mental status, agitation and confusion, probably secondary to hypoxemia, sedated, managed by primary care team Status post acute renal failure, continue on IV fluid and monitor renal function Status post hypotension, blood pressure is better, off old pressors and receiving IV fluid as needed, continue to monitor blood pressure Anemia with GI bleed received multiple blood transfusion, possible endoscopy Coronary artery disease, history of CABG 4 done in 2008 with paralyzed vocal cord and multiple throat surgeries for removal of vocal cord resulted in tracheostomy in 2008. Acute psychosis, receiving Haldol Peripheral arterial disease by history, monitor for now Hyperglycemia, history of type II diabetes. Admitted with blood sugar around 900, better control at this time. Continue to monitor Chronic pain syndrome, osteoarthritis History of testicular hypofunction Gastroesophageal reflux disease Anxiety Clinical Quality Measures DVT/VTE Risk/Contraindication: Risk Factor Score Per Nursin RFS Level Per Nursing on Admit: 4+=Very High OSMAR JONES MD May 09, 2018 07:42
[2018-05-09] MEDS: MICONAZOLE 2% POWDER (DESENEX AF) 90 GM TOP SCH ×2 (09:17→21:58)
[2018-05-09] MEDS: PANTOPRAZOLE 40 MG (PROTONIX) VIAL IV SCH ×2 (09:17→21:57)
[2018-05-09] MEDS: PREGABALIN 75 MG (LYRICA) CAP PO SCH ×3 (09:17→21:57)
[2018-05-09] MEDS: HALOPERIDOL 5 MG/ML (HALDOL) AMP IM SCH ×2 (09:17→21:57)
[2018-05-09] MEDS: HYDROmorphone 2 MG/ML VIAL (DILAUDID) IV PRN (10:05)
--- NOTE | 2018-05-09 10:15 | Diagnostic Imaging Report ---
Indication: Hypotension. Comparison: 05/08/2018. Findings: Stable tracheostomy tube. Allowing for differences in technique, no change in perihilar hazy opacities. Cardiac enlargement is similar. No pleural effusion or pneumothorax. Impression: Stable exam with potential central vascular congestion. No adverse development. Dictated by: Dictated on workstation # [id number]
[2018-05-09 10:32] LABS: ABG BASE EXCESS -3.1 MMOL/L (-2.5-2.5); ABG OXYGEN SATURATION 97 % (94-100); ABG PCO2 29 MMHG (35-45); ABG PH 7.46 (7.37-7.43); ABG PO2 71 MMHG (79-93); ABG TCO2 21.3 MMOL/L (21.0-31.0)
[2018-05-09 10:34] LABS: ALLENS TEST YES-POS; INSPIRED O2 50; PATIENT TEMP 96.8; VENTILATOR YES
--- NOTE | 2018-05-09 11:12 | Progress Note-Hospitalist ---
Subjective HPI/CC On Admission Date Seen by Provider: May 09, 2018 Time Seen by Provider: 11:00 Pt is a 52yoCM with a PMH of IDDMII, PVD, trach dependency from vocal cord paralysis who presented to the ER due elevated blood sugar. He is unable to provide any history due to altered mentation but his fiance is at bedside who helps fill in some details. reported he was normal 2 days ago and when she returned home from work at 4pm yesterday he was already asleep. She did not think much of this but she awoke this morning at 230am and he seemed "out of it " so she checked his blood sugar and it read over 600 so she brought him to the ER. He was found to have a BS of >900 and was hypotensive on arrival. He also had an CARLIN with significant uremia and hyperkalemia. He was transferred here for higher level of care. En route he had a large bloody bowel movement. His fiance is unsure if he had any other bloody bowel movements. Subjective/Events-last exam Patient attempting to be weaned He gets aggressive and has altered mental status once he is off the ventilator ABG reviewed Labs reviewed Very complicated medical conditions Focused Exam Lactate Level 05/07/18 11:55: Lactic Acid Level 1.35 Objective Exam Vital Signs Vital Signs Date Time Temp Pulse Resp B/P (MAP) Pulse Ox O2 Delivery O2 Flow Rate FiO2 05/09/18 11:30 133 36 92 50 05/09/18 11:00 139/88 (105) Mechanical Ventilator 50.00 05/09/18 08:37 97.0 Capillary Refill : Less Than 3 Seconds General Appearance: No Apparent Distress, Chronically ill, Other (on vent sedated) HEENT: PERRL/EOMI Neck: Full Range of Motion Respiratory: Chest Non Tender, Rhonci Cardiovascular: Regular Rate, Rhythm Gastrointestinal: Normal Bowel Sounds, Non Tender, Soft Genital/Rectal: Other (benson in place) Extremity: Normal Capillary Refill Neurologic/Psychiatric: Disoriented Skin: Normal Color Lymphatic: No Adenopathy Results/Procedures Lab Laboratory Tests 05/09/18 03:37 Patient resulted labs reviewed. Imaging: Reviewed Imaging Report Assessment/Plan Assessment and Plan Assess & Plan/Chief Complaint Assessment: Multisystem organ failure VDRF CAD previous CABG Trach permanent Plan: Maintain vent Prognosis guarded Critical Care Critically Ill Patient Diagnosis/Problems Diagnosis/Problems (1) Hyperosmolar non-ketotic state in patient with type 2 diabetes mellitus Status: Resolved Resolution Date/Time: 05/05/18 @ 10:19 (2) Tracheostomy present Status: Chronic (3) Shock Status: Resolved Resolution Date/Time: 05/05/18 @ 10:12 (4) Hyperkalemia Status: Resolved Resolution Date/Time: 05/05/18 @ 10:20 (5) Acute respiratory failure Status: Resolved Qualifiers: Respiratory failure complication: unspecified whether with hypoxia or hypercapnia Qualified Codes: J96.00 - Acute respiratory failure, unspecified whether with hypoxia or hypercapnia Resolution Date/Time: 05/05/18 @ 10:19 (6) Squamous cell carcinoma of skin of right middle finger (7) HHS (hypothenar hammer syndrome) Status: Acute (8) CAD (coronary artery disease) Qualifiers: Coronary Disease-Associated Artery/Lesion type: bypass graft [place] vs. transplanted heart: [place] heart Associated angina: angina presence unspecified Qualified Codes: I25.810 - Atherosclerosis of coronary artery bypass graft(s) without angina pectoris (9) Lactic acidosis Status: Resolved Resolution Date/Time: 05/03/18 @ 07:31 (10) DKA (diabetic ketoacidoses) Clinical Quality Measures DVT/VTE Risk/Contraindication: Risk Factor Score Per Nursin RFS Level Per Nursing on Admit: 4+=Very High ELIZABETH JANSEN DO May 09, 2018 11:12
[2018-05-09] MEDS ORDERED: PROPOFOL DRIP (ICU) 100 ML IV ONE (11:40)
[2018-05-09] MEDS ORDERED: HYDROmorphone 2 MG/ML VIAL (DILAUDID) IV NR (11:45)
--- NOTE | 2018-05-09 13:20 | Pulmonary Progress Note ---
Subjective Time Seen by a Provider: 13:17 Subjective/Events-last exam Called to bedside secondary to increased WOB and agitation. Sepsis Event Evaluation Height, Weight, BMI Height: 6'1.00" Weight: 256lbs. 3.0oz. 116.885570yu; 31.7 BMI Method:Estimated Focused Exam Lactate Level 05/07/18 11:55: Lactic Acid Level 1.35 Exam Exam Vital Signs Date Time Temp Pulse Resp B/P (MAP) Pulse Ox O2 Delivery O2 Flow Rate FiO2 05/09/18 12:00 129 31 157/98 (117) 97 Mechanical Ventilator 80.00 05/09/18 11:51 150/116 05/09/18 11:50 Mechanical Ventilator 80.00 05/09/18 11:30 133 36 92 50 05/09/18 11:00 82 20 139/88 (105) 97 Mechanical Ventilator 50.00 05/09/18 10:00 84 25 144/94 (111) 96 Mechanical Ventilator 50.00 05/09/18 09:00 66 23 135/80 (98) 97 Mechanical Ventilator 50.00 05/09/18 08:37 97.0 05/09/18 08:30 Mechanical Ventilator 50.00 05/09/18 08:15 97 Mechanical Ventilator 50.00 05/09/18 08:00 81 26 141/102 (115) 97 Mechanical Ventilator 60.00 05/09/18 07:41 Mechanical Ventilator 60.00 05/09/18 07:26 67 28 97 30 05/09/18 07:14 68 05/09/18 07:00 62 31 133/80 (97) 97 Mechanical Ventilator 30.00 05/09/18 06:00 58 23 117/70 (86) 97 Mechanical Ventilator 30.00 05/09/18 05:00 58 24 117/69 (85) 97 Mechanical Ventilator 30.00 05/09/18 04:09 58 25 97 30 05/09/18 04:00 99 Mechanical Ventilator 30 05/09/18 04:00 59 23 115/72 (86) 97 Mechanical Ventilator 30.00 05/09/18 04:00 96.6 05/09/18 03:00 59 25 119/75 (90) 92 Mechanical Ventilator 30.00 05/09/18 02:29 118/71 05/09/18 02:06 59 23 92 30 05/09/18 02:00 59 25 118/71 (87) 92 Mechanical Ventilator 30.00 05/09/18 01:00 59 23 114/69 (84) 94 Mechanical Ventilator 30.00 05/09/18 01:00 60 05/09/18 00:19 59 24 95 30 05/09/18 00:00 99 Mechanical Ventilator 30 05/09/18 00:00 59 23 110/67 (81) 93 Mechanical Ventilator 30.00 05/09/18 00:00 95.5 05/08/18 23:00 60 22 107/65 (79) 94 Mechanical Ventilator 30.00 05/08/18 22:39 60 24 96 30 05/08/18 22:00 60 22 103/63 (76) 100 Mechanical Ventilator 30.00 05/08/18 21:47 105/63 05/08/18 21:00 60 23 104/67 (79) 100 Mechanical Ventilator 30.00 05/08/18 20:10 100 Mechanical Ventilator 30.00 05/08/18 20:01 60 20 100 40 05/08/18 20:00 96.5 05/08/18 20:00 99 Mechanical Ventilator 30 05/08/18 20:00 60 19 102/68 (79) 100 Mechanical Ventilator 50.00 05/08/18 19:00 60 16 99/63 (75) 100 Mechanical Ventilator 50.00 05/08/18 19:00 61 05/08/18 18:33 60 18 100 50 05/08/18 18:00 61 16 102/61 (75) 100 Mechanical Ventilator 50.00 05/08/18 17:44 97.3 05/08/18 17:00 62 17 109/65 (80) 100 Mechanical Ventilator 50.00 05/08/18 16:16 65 19 100 50 05/08/18 16:00 99 Mechanical Ventilator 30 05/08/18 16:00 70 20 119/64 (82) 99 Mechanical Ventilator 50.00 05/08/18 15:39 97.3 05/08/18 15:12 66 13 99 21 05/08/18 15:00 67 7 97/70 (79) 97 Mechanical Ventilator 30.00 05/08/18 14:00 70 17 110/68 (82) 93 Mechanical Ventilator 30.00 I & O 05/09/18 07:00 Intake Total 1890 ml Output Total 1175 ml Balance 715 ml Height & Weight Height: 6'1.00" Weight: 256lbs. 3.0oz. 116.968256ax; 31.7 BMI Method:Estimated General Appearance: Anxious, Chronically ill, Moderate Distress, Severe Distress HEENT: PERRL/EOMI Neck: Full Range of Motion Respiratory: Chest Non Tender, Accessory Muscle Use, Decreased Breath Sounds, Respiratory Distress, Rhonci Cardiovascular: Regular Rate, Rhythm Capillary Refill: Less Than 3 Seconds Gastrointestinal: normal bowel sounds, non tender, soft Extremity: Normal Capillary Refill Neurologic/Psychiatric: Disoriented Skin: Normal Color Lymphatic: No Adenopathy Results Lab Laboratory Tests 05/08/18 03:20 05/09/18 03:37 Assessment/Plan Assessment/Plan Chronic respiratory failure with tracheostomy -pt is on vent -Change vent to back to AC -Continue precedex. restart propofol -Place NG -Haldol -Oxygen -Monitor - Continue Zosyn x 7days. Pulmonary edema -Will give lasix 60mg IV x 1 Hyperglycemia - with hypernatremia -IVF to 1/2 NS and monitor -24units of Levemir -SSI C Psychosis - pt gets very agitated -Pt is not able to take PO meds currently -Wean precedex to PRN -PRN Haldol --PRN Dilaudid Hypernatremia -Change IVF to 1/2 NS AKF -IVF -Monitor GIB -- lower GIB vs major upper GIB ( BUN is 101) s/p total 4 units. with 1 unit last night -PT still having Melanotic stools -Protonix BID IV -Check H&H Q 6 -IVF I have been back to patients room multiple times secondary to agitation and respiratory distress. total time spent with patient not including this AM is 60min. ACOSTA FRAGA DO May 09, 2018 13:20
--- NOTE | 2018-05-09 13:51 | NUR ---
1300 DR FRAGA IN TO SEE PATIENT, PT EXTREMELY RESTLESS, KICKING LEGS OVER SIDE RAILS OF BED, TRIED TO REORIENTATE PT WITH NO SUCCESS. DR FRAGA CHANGED VENT SETTING BACK TO AC MODE WITH FI02 AT 80%. VERBAL ORDER TO OBTAIN TROPONIN, NGT PLACEMENT AND CXR. DR FRAGA STATES " WILL ATTEMPT TO WEAN AGAIN TOMORROW."
--- NOTE | 2018-05-09 14:02 | NUR ---
TUBE FEEDING RECOMMENDATIONS: RECOMMEND [facility] @ 70 ML/HR TO PROVIDE 2520 KCAL, 105 GRAMS PROTEIN, 1319 ML FREE WATER. PT WILL NEED ADDITIONAL 1600 ML FLUID PER DAY BETWEEN FLUSHES AND IVF.
--- NOTE | 2018-05-09 14:02 | Diagnostic Imaging Report ---
INDICATION: Diminished breath sounds and NG tube placement. TIME OF EXAM: 1:39 p.m. COMPARISON: Correlation is made with prior study from earlier same day. FINDINGS: There appears to be a tracheostomy tube with tip at the level of the clavicular heads, well above the jeevan. There are changes of median sternotomy. An NG tube has been placed. The tip appears to pass just below the diaphragm and could be advanced. Heart is enlarged. There are some congestive changes with bilateral infiltrates, similar to prior exam. No effusion or pneumothorax is seen. IMPRESSION: Congestive changes. NG tube has been placed, as described and it could likely be advanced. Dictated by: Dictated on workstation # [id number]
--- NOTE | 2018-05-09 14:15 | NUR ---
PALLIATIVE CARE RN in to see patient. He is still sedated on the vent and not able to communicate. NG tube has been placed for nutritional support and it is noted that his troponin is elevated...unsure the direction that his hospital course will take. He has no family that we are aware of, only a fiance' who is not present at time of visit. Will continue current POC for now and monitor troponin.
--- NOTE | 2018-05-09 14:38 | NUR ---
OXYCODONE PULLED BY THIS PROPERTY MANAGEMENT COORDINATOR, HOWEVER MEDICATION NOT ABLE TO BE CRUSHED,. MEDICATION WASTED IN APPROPRIATE CONTAINER AND WITNESSED BY Brooklyn MARKS RN.
--- NOTE | 2018-05-09 16:03 | Progress Note (SOAP) ---
Subjective Date Seen by a Provider: May 09, 2018 Time Seen by a Provider: 15:45 Subjective/Events-last exam clinical status unchanged. cannot tolerate vent ween do to severe agitation/ psychosis. Hb stable. Focused Exam Lactate Level 05/07/18 11:55: Lactic Acid Level 1.35 Objective Exam Vital Signs Date Time Temp Pulse Resp B/P (MAP) Pulse Ox O2 Delivery O2 Flow Rate FiO2 05/09/18 14:34 Mechanical Ventilator 60.00 05/09/18 14:31 73 24 100 80 05/09/18 14:00 98.8 05/09/18 14:00 79 24 111/79 (90) 100 Mechanical Ventilator 80.00 05/09/18 13:00 123 39 161/86 (111) 99 Mechanical Ventilator 80.00 05/09/18 12:55 97 Mechanical Ventilator 50.00 05/09/18 12:52 128 05/09/18 12:00 129 31 157/98 (117) 97 Mechanical Ventilator 80.00 05/09/18 11:51 150/116 05/09/18 11:50 Mechanical Ventilator 80.00 05/09/18 11:30 133 36 92 50 05/09/18 11:00 82 20 139/88 (105) 97 Mechanical Ventilator 50.00 05/09/18 10:00 84 25 144/94 (111) 96 Mechanical Ventilator 50.00 05/09/18 09:00 66 23 135/80 (98) 97 Mechanical Ventilator 50.00 05/09/18 08:37 97.0 05/09/18 08:30 Mechanical Ventilator 50.00 05/09/18 08:15 97 Mechanical Ventilator 50.00 05/09/18 08:00 81 26 141/102 (115) 97 Mechanical Ventilator 60.00 05/09/18 07:41 Mechanical Ventilator 60.00 05/09/18 07:26 67 28 97 30 05/09/18 07:14 68 05/09/18 07:00 62 31 133/80 (97) 97 Mechanical Ventilator 30.00 05/09/18 06:00 58 23 117/70 (86) 97 Mechanical Ventilator 30.00 05/09/18 05:00 58 24 117/69 (85) 97 Mechanical Ventilator 30.00 05/09/18 04:09 58 25 97 30 05/09/18 04:00 99 Mechanical Ventilator 30 05/09/18 04:00 59 23 115/72 (86) 97 Mechanical Ventilator 30.00 05/09/18 04:00 96.6 05/09/18 03:00 59 25 119/75 (90) 92 Mechanical Ventilator 30.00 05/09/18 02:29 118/71 05/09/18 02:06 59 23 92 30 05/09/18 02:00 59 25 118/71 (87) 92 Mechanical Ventilator 30.00 05/09/18 01:00 59 23 114/69 (84) 94 Mechanical Ventilator 30.00 05/09/18 01:00 60 05/09/18 00:19 59 24 95 30 05/09/18 00:00 99 Mechanical Ventilator 30 05/09/18 00:00 59 23 110/67 (81) 93 Mechanical Ventilator 30.00 05/09/18 00:00 95.5 05/08/18 23:00 60 22 107/65 (79) 94 Mechanical Ventilator 30.00 05/08/18 22:39 60 24 96 30 05/08/18 22:00 60 22 103/63 (76) 100 Mechanical Ventilator 30.00 05/08/18 21:47 105/63 05/08/18 21:00 60 23 104/67 (79) 100 Mechanical Ventilator 30.00 05/08/18 20:10 100 Mechanical Ventilator 30.00 05/08/18 20:01 60 20 100 40 05/08/18 20:00 96.5 05/08/18 20:00 99 Mechanical Ventilator 30 05/08/18 20:00 60 19 102/68 (79) 100 Mechanical Ventilator 50.00 05/08/18 19:00 60 16 99/63 (75) 100 Mechanical Ventilator 50.00 05/08/18 19:00 61 05/08/18 18:33 60 18 100 50 05/08/18 18:00 61 16 102/61 (75) 100 Mechanical Ventilator 50.00 05/08/18 17:44 97.3 05/08/18 17:00 62 17 109/65 (80) 100 Mechanical Ventilator 50.00 05/08/18 16:16 65 19 100 50 05/08/18 16:00 99 Mechanical Ventilator 30 05/08/18 16:00 70 20 119/64 (82) 99 Mechanical Ventilator 50.00 I & O 05/09/18 07:00 Intake Total 1890 ml Output Total 1175 ml Balance 715 ml Capillary Refill : Less Than 3 Seconds General Appearance: No Apparent Distress HEENT: PERRL/EOMI Neck: Full Range of Motion Respiratory: Rhonci Cardiovascular: Regular Rate, Rhythm Gastrointestinal: normal bowel sounds, non tender, soft Extremity: Normal Capillary Refill Neurologic/Psychiatric: Other (vent/sedated) Skin: Normal Color Lymphatic: No Adenopathy Results Lab Laboratory Tests 05/08/18 17:48: Glucometer 171H 05/09/18 00:16: Glucometer 197H 05/09/18 03:37: White Blood Count 5.6, Red Blood Count 2.97L, Hemoglobin 7.2L, Hematocrit 24L, Mean Corpuscular Volume 82, Mean Corpuscular Hemoglobin 24L, Mean Corpuscular Hemoglobin Concent 30L, Red Cell Distribution Width 20.7H, Platelet Count 127L, Mean Platelet Volume 12.2H, Neutrophils (%) (Auto) 66, Lymphocytes (%) (Auto) 19 , Monocytes (%) (Auto) 11, Eosinophils (%) (Auto) 3, Basophils (%) (Auto) 0, Neutrophils # (Auto) 3.7, Lymphocytes # (Auto) 1.1, Monocytes # (Auto) 0.6, Eosinophils # (Auto) 0.2, Basophils # (Auto) 0.0, Blood Gas Puncture Site R RAD , Blood Gas Patient Temperature 96.6, Arterial Blood pH 7.45H, Arterial Blood Partial Pressure CO2 31L, Arterial Blood Partial Pressure O2 72L, Arterial Blood HCO3 21L, Arterial Blood Total CO2 22.3, Arterial Blood Oxygen Saturation 97, Arterial Blood Base Excess -2.3, Devin Test YES-POS, Blood Gas Ventilator Setting YES, Blood Gas Inspired Oxygen 30%, Sodium Level 142, Potassium Level 3.1L, Chloride Level 112H, Carbon Dioxide Level 20L, Anion Gap 10, Blood Urea Nitrogen 17, Creatinine 1.11, Estimat Glomerular Filtration Rate > 60, BUN/ Creatinine Ratio 15, Glucose Level 174H, Calcium Level 8.2L, Phosphorus Level 2.4, Magnesium Level 2.1, B-Type Natriuretic Peptide 231.0H, Triglycerides Level 80 05/09/18 10:25: Blood Gas Puncture Site RIGHT RADIAL, Blood Gas Patient Temperature 96.8, Arterial Blood pH 7.46H, Arterial Blood Partial Pressure CO2 29L, Arterial Blood Partial Pressure O2 71L, Arterial Blood HCO3 20L, Arterial Blood Total CO2 21.3, Arterial Blood Oxygen Saturation 97, Arterial Blood Base Excess -3.1L , Devin Test YES-POS, Blood Gas Ventilator Setting YES, Blood Gas Inspired Oxygen 50 05/09/18 12:08: Glucometer 206H 05/09/18 13:15: Troponin I 1.797*H Microbiology 05/02/18 Blood Culture - Preliminary, Resulted No growth 05/07/18 Gram Stain - Final, Resulted 05/07/18 Sputum Culture - Preliminary, Resulted Pseudomonas aeruginosa Assessment/Plan Assessment/Plan Assess & Plan/Chief Complaint GI bleed, hx vocal cord paralysis and permanent trach. has not had colonoscopy before in past. initial NGT out appeared some mixed blood. will proceed with EGD and Colonoscopy on this admisssion. patient severely agitated when sedation weened. Hb stable however does have episodes of hypotension when sedation restarted. will await medical stability then proceed with endoscopy however at this time cannot tolerate vent ween due to severe agitation/pyschosis. will hold off on endoscopy for now. Clinical Quality Measures DVT/VTE Risk/Contraindication: Risk Factor Score Per Nursin RFS Level Per Nursing on Admit: 4+=Very High THOR PERERA MD May 09, 2018 16:03
--- NOTE | 2018-05-09 21:30 | NUR ---
This RN and RT to bedside. RT and this RN suspect that trach has become dislodged. ED provider to bedside, assessment done, trach adjusted/secured, pt tolerated well. Will continue to monitor.
[2018-05-09] MEDS: rOPINIRole 1 MG (REQUIP) TABLET PO SCH (21:57)
[2018-05-09] MEDS: SERTRALINE 50 MG (ZOLOFT) TABLET PO SCH (21:57)
[2018-05-09] MEDS: ATORVASTATIN 80 MG (LIPITOR) TABLET PO SCH (21:57)
[2018-05-10] VITALS (33 sets, daily range): BP systolic 102–159; BP diastolic 64–102
[2018-05-10] MEDS: RT-IPRATROPIUM (ATROVENT) 0.5MG/2.5ML AMP IH SCH ×6 (02:00→21:54)
[2018-05-10 03:37] LABS: ABG BASE EXCESS -3.7 MMOL/L (-2.5-2.5); ABG OXYGEN SATURATION 100 % (94-100); ABG PCO2 33 MMHG (35-45); ABG PO2 181 MMHG (79-93); ABG TCO2 21.4 MMOL/L (21.0-31.0); BASOPHILS % (AUTO) 0 % (0-10); EOSINOPHILS # (AUTO) 0.2 10^3/uL (0.0-0.3); EOSINOPHILS % (AUTO) 2 % (0-10); HEMATOCRIT 24 % (40-54); LYMPHOCYTES # (AUTO) 0.8 X 10^3 (1.0-4.0); LYMPHOCYTES % (AUTO) 13 % (12-44); MEAN CORPUSCULAR HEMOGLOBIN 24 PG (25-34); MEAN CORPUSCULAR HGB CONC 29 G/DL (32-36); MEAN CORPUSCULAR VOLUME 82 FL (80-99); MEAN PLATELET VOLUME 12.6 FL (7.4-10.4); MONOCYTES # (AUTO) 0.6 X 10^3 (0.0-1.0); MONOCYTES % (AUTO) 10 % (0-12); NEUTROPHILS # (AUTO) 4.6 X 10^3 (1.8-7.8); NEUTROPHILS % (AUTO) 75 % (42-75); PLATELET COUNT 161 10^3/uL (130-400); RED CELL DISTRIBUTION WIDTH 20.7 % (10.0-14.5); WHITE BLOOD COUNT 6.2 10^3/uL (4.3-11.0)
[2018-05-10 03:39] LABS: ALLENS TEST YES-POS; INSPIRED O2 60%; VENTILATOR YES
[2018-05-10 03:57] LABS: BUN/CREATININE RATIO 16; CALCIUM 8.3 MG/DL (8.5-10.1); CARBON DIOXIDE 21 MMOL/L (21-32); CHLORIDE 114 MMOL/L (98-107); CREATININE SERUM 0.93 MG/DL (0.60-1.30); GFR ESTIMATED > 60; GLUCOSE 138 MG/DL (70-105); MAGNESIUM 1.6 MG/DL (1.8-2.4); PHOSPHORUS 2.1 MG/DL (2.3-4.7); POTASSIUM 3.4 MMOL/L (3.6-5.0); SODIUM 144 MMOL/L (135-145)
[2018-05-10] MEDS: DEXMEDETOMIDINE INJECTION 1,000 MCG in NS (IVPB) 250 ML IV SCH ×2 (04:33→13:14)
[2018-05-10] MEDS: KCL 20 MEQ TAB (K-DUR) PO SCH (05:19)
[2018-05-10] MEDS: oxyCODONE ER 15 MG (oxyCONTIN CR) TAB PO SCH ×3 (05:19→21:14)
[2018-05-10] MEDS: inSUlin ASPART (NovoLOG) 1 UNIT/0.01 ML (CHARGE PER UNIT) SC SCH ×4 (05:19→23:23)
[2018-05-10] MEDS: MAGNESIUM 1 GM/100 ML IVPB 100 ML IV SCH ×3 (05:19→06:50)
[2018-05-10] MEDS: POTASSIUM CL 10MEQ/50ML IVPB 50 ML IV SCH ×5 (05:21→08:23)
--- NOTE | 2018-05-10 06:11 | Pulmonary Progress Note ---
Subjective Time Seen by a Provider: 07:31 Subjective/Events-last exam PT did not tolerate vent weaning yesterday. Sepsis Event Evaluation Height, Weight, BMI Height: 6'1.00" Weight: 245lbs. 5.0oz. 111.341735pd; 31.7 BMI Method:Estimated Focused Exam Lactate Level 05/07/18 11:55: Lactic Acid Level 1.35 Exam Exam Vital Signs Date Time Temp Pulse Resp B/P (MAP) Pulse Ox O2 Delivery O2 Flow Rate FiO2 05/10/18 06:00 68 21 124/85 (98) 99 Mechanical Ventilator 80.00 05/10/18 05:00 74 17 119/76 (90) 100 Mechanical Ventilator 80.00 05/10/18 04:25 Mechanical Ventilator 80.00 05/10/18 04:00 61 26 116/64 (81) 90 Mechanical Ventilator 100.00 05/10/18 04:00 Mechanical Ventilator 60.00 05/10/18 03:50 61 22 60 05/10/18 03:50 Mechanical Ventilator 100.00 05/10/18 03:00 60 14 109/82 (91) 100 Mechanical Ventilator 60.00 05/10/18 02:00 61 18 102/82 (89) 93 Mechanical Ventilator 60.00 05/10/18 02:00 61 19 92 60 05/10/18 01:00 63 15 125/75 (92) 95 Mechanical Ventilator 60.00 05/10/18 01:00 63 05/10/18 00:00 63 23 125/77 (93) 97 Mechanical Ventilator 50.00 05/10/18 00:00 Mechanical Ventilator 60.00 05/09/18 23:51 Mechanical Ventilator 05/09/18 23:37 97.4 05/09/18 23:00 63 18 123/75 (91) 90 Mechanical Ventilator 50.00 05/09/18 22:12 63 20 93 50 05/09/18 22:00 63 21 118/75 (89) 97 Mechanical Ventilator 50.00 05/09/18 21:00 64 21 120/76 (91) 97 Mechanical Ventilator 50.00 05/09/18 20:00 Mechanical Ventilator 60.00 05/09/18 20:00 66 20 120/77 (91) 91 Mechanical Ventilator 50.00 05/09/18 19:30 98.0 05/09/18 19:00 72 05/09/18 19:00 72 25 129/83 (98) 100 Mechanical Ventilator 50.00 05/09/18 18:30 66 21 98 60 05/09/18 18:00 72 23 121/85 (97) 100 Mechanical Ventilator 60.00 05/09/18 17:07 98.4 79 15 118/80 97 Mechanical Ventilator 60.00 05/09/18 17:00 73 25 115/73 (87) 100 Mechanical Ventilator 60.00 05/09/18 16:18 97 Mechanical Ventilator 60.00 05/09/18 16:00 98.4 05/09/18 16:00 79 15 118/80 (93) 100 Mechanical Ventilator 60.00 05/09/18 15:00 71 22 100/69 (79) 100 Mechanical Ventilator 60.00 05/09/18 14:34 Mechanical Ventilator 60.00 05/09/18 14:31 73 24 100 80 05/09/18 14:00 98.8 05/09/18 14:00 79 24 111/79 (90) 100 Mechanical Ventilator 80.00 05/09/18 13:00 123 39 161/86 (111) 99 Mechanical Ventilator 80.00 05/09/18 12:55 97 Mechanical Ventilator 50.00 05/09/18 12:52 128 05/09/18 12:00 129 31 157/98 (117) 97 Mechanical Ventilator 80.00 05/09/18 11:51 150/116 05/09/18 11:50 Mechanical Ventilator 80.00 05/09/18 11:30 133 36 92 50 05/09/18 11:00 82 20 139/88 (105) 97 Mechanical Ventilator 50.00 05/09/18 10:00 84 25 144/94 (111) 96 Mechanical Ventilator 50.00 05/09/18 09:00 66 23 135/80 (98) 97 Mechanical Ventilator 50.00 05/09/18 08:37 97.0 05/09/18 08:30 Mechanical Ventilator 50.00 05/09/18 08:15 97 Mechanical Ventilator 50.00 05/09/18 08:00 81 26 141/102 (115) 97 Mechanical Ventilator 60.00 05/09/18 07:41 Mechanical Ventilator 60.00 05/09/18 07:26 67 28 97 30 05/09/18 07:14 68 05/09/18 07:00 62 31 133/80 (97) 97 Mechanical Ventilator 30.00 I & O 05/10/18 07:00 Intake Total 1070 ml Output Total 3650 ml Balance -2580 ml Height & Weight Height: 6'1.00" Weight: 245lbs. 5.0oz. 111.642432jj; 31.7 BMI Method:Estimated General Appearance: Mild Distress, Other (sedated on vent) HEENT: PERRL/EOMI Neck: Full Range of Motion, Other (trach in place) Respiratory: Decreased Breath Sounds, Rhonci Cardiovascular: Regular Rate, Rhythm Capillary Refill: Less Than 3 Seconds Gastrointestinal: normal bowel sounds, non tender, soft Extremity: Normal Capillary Refill Neurologic/Psychiatric: Other (vent/sedated) Skin: Normal Color Lymphatic: No Adenopathy Results Lab Laboratory Tests 05/09/18 03:37 05/10/18 03:15 Assessment/Plan Assessment/Plan Acute on Chronic respiratory failure with tracheostomy - vent dependent - -Pt failed weaning again yesterday secondary to both agitation and respiratory distress. Pt is having copious amounts of sputum production. Zosyn auto stopped yesterday. I am going to restart Zosyn and add Eraxis. Pt's size 6 trach is very positional with intermittent air leak. I d/w Dr. Jimenez he recommended to consult Dr. Galeas. I d/w Dr. Galeas who knows pt well he states changing trach out to larger trach tube is very risky. I am going to have [facility] eval patient for possible transfer there. I have also consulted and discussed pt's care with rn case manager hospice who is going to discuss option of hospice with family. Pt is not currently able to make medical decisions. -CXR reviewed will give lasix 60mg IV x 1 - Precedex. decrease propofol for light sedation. -Start TF per dietary recommendations -Solumedrol 40 IV Q 6. -Haldol PRN , start Risperdal -Oxygen -Monitor - Restart Zosyn, add Diflucan HX of vocal chord paralysis. Pt has had tracheostomy x 9yrs. Trach was done emergently by Dr. Galeas at that time. -Pt has failed discontinuation of trach tube in the past Pulmonary edema -Will give lasix 60mg IV x 1 CHF -echo shows EF of 30-35%, NSTEMI -Cardiology is following -Give 60mg of lasix today -decrease IVF HX of CAD with CABG 4 done in 2008 Hyperglycemia - with hypernatremia -Hep lock IVF -24units of Levemir -SSI C Psychosis/metabolic encpehalopathy - pt gets very agitated -- probable hx of drug/alcohol use -Pt is not able to take PO meds currently -Wean precedex to PRN -PRN Haldol --PRN Dilaudid Hypernatremia -Change IVF to 1/2 NS AKF -IVF -Monitor GIB -- lower GIB vs major upper GIB ( BUN is 101) s/p total 4 units. with 1 unit last night -PT still having Melanotic stools -Protonix BID IV -Check H&H Q 6 -IVF Total time spent with patient and medical staff discussing plan of care is 60min ACOSTA FRAGA DO May 10, 2018 06:11
[2018-05-10] MEDS ORDERED: FUROSEMIDE 40 MG/4 ML INJ (LASIX) IVP ONE (06:15)
[2018-05-10] MEDS ORDERED: methylPREDNISolone 125 MG (Solu-MEDROL) VIAL IVP ONE (06:15)
[2018-05-10] MEDS ORDERED: FUROSEMIDE 40 MG/4 ML INJ (LASIX) ONE (06:28)
[2018-05-10] MEDS ORDERED: methylPREDNISolone 125 MG (Solu-MEDROL) VIAL ONE ×2 (06:29→09:47)
[2018-05-10] MEDS: PROPOFOL DRIP (ICU) 100 ML IV SCH ×5 (06:58→22:58)
[2018-05-10] MEDS ORDERED: PIPERACILLIN/TAZO 4.5 GM/NS 100 ML IV ONE ×2 (08:00)
[2018-05-10] MEDS ORDERED: ANIDULAFUNGIN INJECTION 200 MG in NS (IVPB) 250 ML IV ONE (08:00)
[2018-05-10] MEDS ORDERED: POTASSIUM PHOSPHATE INJ 30 MM in NS (IVPB) 250 ML IV ONE (08:00)
--- NOTE | 2018-05-10 08:14 | Diagnostic Imaging Report ---
INDICATION: Mechanical ventilation. TECHNIQUE: Single view chest 300 a.m.. CORRELATION STUDY: 05/09/2018 FINDINGS: Poststernotomy changes. Endotracheal and gastric tube appearing to remain in place. The gastric tube cannot be well visualized on this study but appears be at the level of the body of the stomach. Heart size enlarged. Vascular appears increased from prior study. Opacities at both lung garcia, particularly in the perihilar and basilar regions also slightly increased. IMPRESSION: 1. Stable appearance about the support lines and tubes. 2. Cardiac enlargement, vascular appearing increased from prior study. 3. Also appears be increasing areas of atelectasis, infiltrate and/or edema about the particularly mid and basilar regions. Dictated by: Dictated on workstation # [id number]
--- NOTE | 2018-05-10 08:25 | Cardiology Progress Note ---
Subjective Date Seen by Provider: May 10, 2018 Time Seen by Provider: 08:17 Subjective/Events-last exam patient has failed weaning again yesterday, still unresponsive, sedated and ventilator dependent Review of Systems General: Other (unresponsive, unable to provide review of systems) Focused Exam Lactate Level 05/07/18 11:55: Lactic Acid Level 1.35 Objective-Cardiology Exam Last Set of Vital Signs Vital Signs 05/09/18 05/10/18 05/10/18 23:37 06:35 08:00 Temp 97.4 Pulse 67 Resp 25 B/P (MAP) 126/82 (97) Pulse Ox 99 O2 Delivery Mechanical Ventilator O2 Flow Rate 80.00 FiO2 60 Capillary Refill : Less Than 3 Seconds I&O Intake and Output 05/10/18 00:00 Intake Total 2340 ml Output Total 3675 ml Balance -1335 ml Intake Oral 0 ml IV Total 2240 ml Other 100 ml Output Urine Total 3550 ml Gastric Drainage Total 125 ml General: Alert, Moderate Distress, Other (Sedated) HEENT: Atraumatic Neck: Supple, No Thyromegaly Lungs: Normal Air Movement, Other (bilateral rhonchi) Heart: Regular Rate, Normal S1, Normal S2 Abdomen: Normal Bowel Sounds, Soft, No Tenderness Extremities: No Clubbing, Other (trace edema) Skin: No Rashes Neuro: Normal Tone, Other (not following commands) Psych/Mental Status: Other (not responding to questions appropriately) Results Lab Laboratory Tests 05/10/18 03:15 A/P-Cardiology Admission Diagnosis Acute respiratory failure GI bleed Hypovolemic shock Coronary artery disease Assessment/Plan Acute on chronic respiratory failure, history of tracheostomy due to vocal cord injury during bypass surgery, has been combative and agitated once the sedation is off, he has failed multiple attempts of weaning, questionable tracheostomy tube size and position. Managed by Dr. Iglesias Acute pulmonary edema, congestive heart failure, acute left ventricular systolic dysfunction, started on Lasix. Monitor intake and output Non-ST elevation myocardial infarction, history of coronary artery disease and CABG 4 done in 2008, elevated troponin did not have any acute EKG changes. It could be related to severe anemia and hypoxemia and extensive coronary artery disease, would not be able to tolerate aggressive anticoagulation due to the GI bleed. I started him on aspirin 81 mg and I will evaluate his tolerance. Continue to monitor Change in mental status, agitation and confusion, probably secondary to hypoxemia, sedated, managed by primary care team Status post acute renal failure, better at this time, continue to monitor after initiating diuretics Status post hypotension, blood pressure is better, off old pressors and receiving IV fluid as needed, continue to monitor blood pressure Anemia with GI bleed received multiple blood transfusion, slightly worse today. Continue to monitor H&H Acute psychosis, receiving Haldol Peripheral arterial disease by history, monitor for now Hyperglycemia, history of type II diabetes. Admitted with blood sugar around 900, better control at this time. Continue to monitor Chronic pain syndrome, osteoarthritis History of testicular hypofunction Gastroesophageal reflux disease Anxiety Clinical Quality Measures DVT/VTE Risk/Contraindication: Risk Factor Score Per Nursin RFS Level Per Nursing on Admit: 4+=Very High OSMAR JONES MD May 10, 2018 08:25
[2018-05-10] MEDS ORDERED: ASPIRIN E.C. 81 MG (ECOTRIN) TAB PO SCH (09:00)
[2018-05-10] MEDS: MICONAZOLE 2% POWDER (DESENEX AF) 90 GM TOP SCH ×2 (09:11→20:42)
[2018-05-10] MEDS: PREGABALIN 75 MG (LYRICA) CAP PO SCH ×3 (10:05→20:42)
[2018-05-10] MEDS: ASPIRIN 81 MG CHEW (CHILDREN'S ASA) PO SCH (10:05)
[2018-05-10] MEDS: PANTOPRAZOLE 40 MG (PROTONIX) VIAL IV SCH ×2 (10:06→20:39)
[2018-05-10] MEDS: HALOPERIDOL 5 MG/ML (HALDOL) AMP IV PRN (10:15)
[2018-05-10] MEDS: risperiDONE 1 MG (RisperDAL) TAB PO SCH ×2 (10:15→20:42)
--- NOTE | 2018-05-10 10:15 | Progress Note-Hospitalist ---
Subjective HPI/CC On Admission Date Seen by Provider: May 10, 2018 Time Seen by Provider: 09:50 Pt is a 52yoCM with a PMH of IDDMII, PVD, trach dependency from vocal cord paralysis who presented to the ER due elevated blood sugar. He is unable to provide any history due to altered mentation but his fiance is at bedside who helps fill in some details. reported he was normal 2 days ago and when she returned home from work at 4pm yesterday he was already asleep. She did not think much of this but she awoke this morning at 230am and he seemed "out of it " so she checked his blood sugar and it read over 600 so she brought him to the ER. He was found to have a BS of >900 and was hypotensive on arrival. He also had an CARLIN with significant uremia and hyperkalemia. He was transferred here for higher level of care. En route he had a large bloody bowel movement. His fiance is unsure if he had any other bloody bowel movements. Subjective/Events-last exam Patient remains on ventilator through trach Conferred with Dr. Iglesias [place] candidate Overall poor prognosis Dr. Galeas did speak with Dr. Iglesias and changing of the trach is not an option Trach was placed in an emergent situation last time [address] Galeas and it is definitely not recommended Review of Systems General: Fatigue Focused Exam Lactate Level 05/07/18 11:55: Lactic Acid Level 1.35 Objective Exam Vital Signs Vital Signs Date Time Temp Pulse Resp B/P (MAP) Pulse Ox O2 Delivery O2 Flow Rate FiO2 05/10/18 10:19 66 19 100 50 05/10/18 10:00 129/77 (94) Mechanical Ventilator 50.00 05/09/18 23:37 97.4 Capillary Refill : Less Than 3 Seconds General Appearance: No Apparent Distress, Chronically ill, Obese, Other ( sedated on vent) HEENT: PERRL/EOMI Neck: Full Range of Motion, Other (trach in place) Respiratory: Decreased Breath Sounds, Rhonci Cardiovascular: Regular Rate, Rhythm Gastrointestinal: Normal Bowel Sounds, Non Tender, Soft Genital/Rectal: Other (benson in place) Extremity: Normal Capillary Refill Neurologic/Psychiatric: Other (vent/sedated) Skin: Normal Color Lymphatic: No Adenopathy Results/Procedures Lab Laboratory Tests 05/10/18 03:15 Patient resulted labs reviewed. Imaging: Reviewed Imaging Report Assessment/Plan Assessment and Plan Assess & Plan/Chief Complaint Assessment: Multisystem organ failure VDRF CAD previous CABG Trach permanent Plan: Maintain vent Prognosis guarded Critical Care Critically Ill Patient Diagnosis/Problems Diagnosis/Problems (1) Hyperosmolar non-ketotic state in patient with type 2 diabetes mellitus Status: Resolved Resolution Date/Time: 05/05/18 @ 10:19 (2) Tracheostomy present Status: Chronic (3) Shock Status: Resolved Resolution Date/Time: 05/05/18 @ 10:12 (4) Hyperkalemia Status: Resolved Resolution Date/Time: 05/05/18 @ 10:20 (5) Acute respiratory failure Status: Resolved Qualifiers: Respiratory failure complication: unspecified whether with hypoxia or hypercapnia Qualified Codes: J96.00 - Acute respiratory failure, unspecified whether with hypoxia or hypercapnia Resolution Date/Time: 05/05/18 @ 10:19 (6) Squamous cell carcinoma of skin of right middle finger (7) HHS (hypothenar hammer syndrome) Status: Acute (8) CAD (coronary artery disease) Qualifiers: Coronary Disease-Associated Artery/Lesion type: bypass graft [place] vs. transplanted heart: [place] heart Associated angina: angina presence unspecified Qualified Codes: I25.810 - Atherosclerosis of coronary artery bypass graft(s) without angina pectoris (9) Lactic acidosis Status: Resolved Resolution Date/Time: 05/03/18 @ 07:31 (10) DKA (diabetic ketoacidoses) Clinical Quality Measures DVT/VTE Risk/Contraindication: Risk Factor Score Per Nursin RFS Level Per Nursing on Admit: 4+=Very High ELIZABETH JANSEN DO May 10, 2018 10:15
[2018-05-10] MEDS: RT-BUDESONIDE NEBS 0.5 MG/2ML (PULMICORT) AMP INH SCH ×2 (10:17→19:50)
[2018-05-10] MEDS: aCETylcysteine 20% (MUCOMYST) 30ML SOLN VIAL INH SCH ×3 (10:17→21:54)
--- NOTE | 2018-05-10 11:13 | NUR ---
CM/SS. Respond to consult, referral to [facility] completed at physician instruction. Will need to explore patient's support persons, friends/family. Indications are these connections are limited.
--- NOTE | 2018-05-10 12:24 | NUR ---
Increased Tube Feeding to 25ml/hr @ 1000
[2018-05-10] MEDS: methylPREDNISolone 40 MG/ML (Solu-MEDROL) VIAL IV SCH ×3 (13:14→23:23)
[2018-05-10] MEDS: PIPERACILLIN/TAZOBACTAM (BULK) 4.5 GM in NS (IVPB) 100 ML IV SCH ×2 (13:24→21:50)
--- NOTE | 2018-05-10 14:24 | NUR ---
CM/SS. Patient has Living Will and Durable Power of [employer] Prost[employer] Technician for Health Care, copy in chart. Agents in order of preference are as follows: Inga Lazcano, sister [phone] Max Torres, son [phone] Idalia Pressley, life partner [phone] Agatha Villafana will accept patient for admission for first available bed, not anticipated for today but potentially this weekend. All above agents have been updated about the plan for transfer, Unit RN aware.
[2018-05-10] MEDS: HYDROmorphone 2 MG/ML VIAL (DILAUDID) IV PRN ×2 (17:25→21:43)
[2018-05-10] MEDS: FUROSEMIDE 40 MG/4 ML INJ (LASIX) IVP SCH (17:29)
--- NOTE | 2018-05-10 18:04 | NUR ---
1400 Increased Tube Feeding to 40ml/hr. Still no residuals.
--- NOTE | 2018-05-10 18:05 | NUR ---
[address] Iglesias regarding patient's work of breathing and appearance of air hunger/increased HR. Orders to involve EICU if no improvement soon.
--- NOTE | 2018-05-10 18:06 | NUR ---
1700 Around this time spoke with EICU and gave patient Dilaudid for increased HR and possible pain. HR did decrease. Patient still having some air hunger type breathing pattern. Will continue to monitor.
--- NOTE | 2018-05-10 19:04 | NUR ---
1700 Increased Tube Feeding to goal rate of 70ml/hr
[2018-05-10] MEDS: rOPINIRole 1 MG (REQUIP) TABLET PO SCH (20:41)
[2018-05-10] MEDS: SERTRALINE 50 MG (ZOLOFT) TABLET PO SCH (20:42)
[2018-05-10] MEDS: ATORVASTATIN 80 MG (LIPITOR) TABLET PO SCH (20:42)
--- NOTE | 2018-05-10 22:58 | NUR ---
E-ICU notified of pt's increased heart rate. Pain/comfort already addressed (see eMAR and interventions).
[2018-05-10] MEDS ORDERED: HYDROmorphone 2 MG/ML VIAL (DILAUDID) IV ONE (23:45)
[2018-05-11] VITALS (22 sets, daily range): BP systolic 107–146; BP diastolic 64–95
[2018-05-11] MEDS: PROPOFOL DRIP (ICU) 100 ML IV SCH ×5 (01:05→14:30)
[2018-05-11] MEDS: aCETylcysteine 20% (MUCOMYST) 30ML SOLN VIAL INH SCH ×3 (01:17→15:04)
[2018-05-11] MEDS: RT-IPRATROPIUM (ATROVENT) 0.5MG/2.5ML AMP IH SCH ×4 (01:17→15:04)
[2018-05-11 04:05] LABS: BASOPHILS % (AUTO) 0 % (0-10); EOSINOPHILS % (AUTO) 0 % (0-10); HEMATOCRIT 27 % (40-54); LYMPHOCYTES # (AUTO) 0.4 X 10^3 (1.0-4.0); LYMPHOCYTES % (AUTO) 3 % (12-44); MEAN CORPUSCULAR HEMOGLOBIN 24 PG (25-34); MEAN CORPUSCULAR HGB CONC 30 G/DL (32-36); MEAN CORPUSCULAR VOLUME 82 FL (80-99); MEAN PLATELET VOLUME 12.2 FL (7.4-10.4); MONOCYTES # (AUTO) 0.7 X 10^3 (0.0-1.0); MONOCYTES % (AUTO) 5 % (0-12); NEUTROPHILS # (AUTO) 13.5 X 10^3 (1.8-7.8); NEUTROPHILS % (AUTO) 93 % (42-75); PLATELET COUNT 228 10^3/uL (130-400); RED CELL DISTRIBUTION WIDTH 20.4 % (10.0-14.5); WHITE BLOOD COUNT 14.6 10^3/uL (4.3-11.0)
[2018-05-11 04:14] LABS: ABG BASE EXCESS -8.9 MMOL/L (-2.5-2.5); ABG OXYGEN SATURATION 99 % (94-100); ABG PCO2 35 MMHG (35-45); ABG PO2 116 MMHG (79-93); ABG TCO2 17.5 MMOL/L (21.0-31.0)
[2018-05-11 04:16] LABS: ABG PH 7.29 (7.37-7.43)
[2018-05-11 04:17] LABS: ALLENS TEST YES-POS; INSPIRED O2 50%; VENTILATOR YES
[2018-05-11 04:35] LABS: CALCIUM 8.5 MG/DL (8.5-10.1); CREATININE SERUM 1.66 MG/DL (0.60-1.30); MAGNESIUM 2.3 MG/DL (1.8-2.4); POTASSIUM 4.3 MMOL/L (3.6-5.0)
[2018-05-11 04:36] LABS: HYPOCHROMASIA MODERATE; LYMPHOCYTES % (MANUAL) 2 %; MONOCYTES % (MANUAL) 2 %; NEUTROPHILS % (MANUAL) 96 %
[2018-05-11 04:37] LABS: ANISOCYTOSIS MODERATE
[2018-05-11] MEDS: MAGNESIUM 1 GM/100 ML IVPB 100 ML IV SCH (05:37)
[2018-05-11] MEDS: KCL 20 MEQ TAB (K-DUR) PO SCH (05:37)
[2018-05-11] MEDS: oxyCODONE ER 15 MG (oxyCONTIN CR) TAB PO SCH ×2 (05:37→12:30)
[2018-05-11] MEDS: POTASSIUM CL 10MEQ/50ML IVPB 50 ML IV SCH (05:37)
[2018-05-11] MEDS: methylPREDNISolone 40 MG/ML (Solu-MEDROL) VIAL IV SCH ×2 (05:41→12:30)
[2018-05-11] MEDS: PIPERACILLIN/TAZOBACTAM (BULK) 4.5 GM in NS (IVPB) 100 ML IV SCH ×2 (05:41→12:29)
[2018-05-11] MEDS: FUROSEMIDE 40 MG/4 ML INJ (LASIX) IVP SCH (06:03)
[2018-05-11] MEDS: inSUlin ASPART (NovoLOG) 1 UNIT/0.01 ML (CHARGE PER UNIT) SC SCH (06:09)
[2018-05-11] MEDS: RT-BUDESONIDE NEBS 0.5 MG/2ML (PULMICORT) AMP INH SCH (06:13)
[2018-05-11] MEDS ORDERED: SODIUM BICARB 8.4% 50 MEQ/50 ML (ABBOTT) SYR IV ONE (06:15)
[2018-05-11] MEDS ORDERED: inSUlin REGULAR TPN/DRIP 250 UNITS/NS 250 ML IV SCH ×2 (06:15)
[2018-05-11] MEDS ORDERED: inSUlin (REGULAR) HUMAN 1 UNIT/0.01 ML (CHARGE PER UNIT) SC ONE (06:15)
[2018-05-11] MEDS: PREGABALIN 75 MG (LYRICA) CAP PO SCH ×2 (08:11→12:30)
[2018-05-11] MEDS: PANTOPRAZOLE 40 MG (PROTONIX) VIAL IV SCH (08:12)
[2018-05-11] MEDS: risperiDONE 1 MG (RisperDAL) TAB PO SCH (08:12)
[2018-05-11] MEDS ORDERED: fentaNYL INJECTION 1,250 MCG in NS (IVPB) 250 ML IV SCH (08:15)
--- NOTE | 2018-05-11 08:17 | Pulmonary Progress Note ---
Sepsis Event Evaluation Height, Weight, BMI Height: 6'1.00" Weight: 240lbs. 7.0oz. 109.355760gd; 31.7 BMI Method:Estimated Focused Exam Lactate Level 05/11/18 05:30: Lactic Acid Level 1.07 Lactic Acid Level Laboratory Tests Test 05/11/18 05:30 Lactic Acid Level 1.07 MMOL/L (0.50-2.00) Exam Exam Vital Signs Date Time Temp Pulse Resp B/P (MAP) Pulse Ox O2 Delivery O2 Flow Rate FiO2 05/11/18 08:00 123 14 144/82 (102) 100 Mechanical Ventilator 40.00 05/11/18 07:00 123 16 136/80 (98) 100 Mechanical Ventilator 40.00 05/11/18 07:00 123 05/11/18 06:15 99 Mechanical Ventilator 40 05/11/18 06:13 123 15 99 50 05/11/18 06:00 124 15 146/76 (99) 99 Mechanical Ventilator 40.00 05/11/18 05:23 Mechanical Ventilator 40.00 05/11/18 05:00 123 13 143/80 (101) 100 Mechanical Ventilator 50.00 05/11/18 04:15 Mechanical Ventilator 05/11/18 04:00 Mechanical Ventilator 50 05/11/18 04:00 98.0 05/11/18 04:00 122 13 131/76 (94) 98 Mechanical Ventilator 50.00 05/11/18 03:43 122 14 99 50 05/11/18 03:00 118 11 133/74 (93) 98 Mechanical Ventilator 50.00 05/11/18 02:00 121 11 129/74 (92) 98 Mechanical Ventilator 50.00 05/11/18 01:17 124 14 96 50 05/11/18 01:05 Mechanical Ventilator 05/11/18 01:00 120 20 116/69 (85) 93 Mechanical Ventilator 50.00 05/11/18 01:00 120 05/11/18 00:00 123 14 107/71 (83) 91 Mechanical Ventilator 50.00 05/11/18 00:00 Mechanical Ventilator 50 05/10/18 23:16 98.9 05/10/18 23:00 129 23 122/76 (91) 94 Mechanical Ventilator 50.00 05/10/18 22:58 Mechanical Ventilator 05/10/18 22:00 130 21 138/73 (94) 95 Mechanical Ventilator 50.00 05/10/18 21:54 128 23 98 50 05/10/18 21:00 124 24 128/75 (92) 97 Mechanical Ventilator 50.00 05/10/18 20:40 Mechanical Ventilator 05/10/18 20:00 109 25 143/76 (98) 98 Mechanical Ventilator 50.00 05/10/18 20:00 Mechanical Ventilator 50 05/10/18 19:50 50 05/10/18 19:34 104 26 98 50 05/10/18 19:15 98.0 Mechanical Ventilator 50.00 05/10/18 19:00 105 26 125/75 (92) 98 Mechanical Ventilator 50.00 05/10/18 19:00 105 05/10/18 18:00 112 28 128/75 (92) 98 Mechanical Ventilator 30.00 05/10/18 17:30 98.0 113 24 148/74 96 Mechanical Ventilator 50.00 05/10/18 17:00 116 28 148/74 (98) 97 Mechanical Ventilator 30.00 05/10/18 16:17 112 27 97 50 05/10/18 16:00 Mechanical Ventilator 60.00 05/10/18 16:00 97.8 05/10/18 16:00 128 30 159/102 (121) 90 Mechanical Ventilator 30.00 05/10/18 15:00 105 32 152/75 (100) 90 Mechanical Ventilator 30.00 05/10/18 14:34 90 32 93 30 05/10/18 14:00 87 24 144/79 (100) 96 Mechanical Ventilator 30.00 05/10/18 13:24 97.2 91 25 143/79 94 Mechanical Ventilator 30.00 05/10/18 13:05 78 26 100 40 05/10/18 13:00 80 28 143/79 (100) 100 Mechanical Ventilator 30.00 05/10/18 12:53 75 05/10/18 12:00 Mechanical Ventilator 60.00 05/10/18 12:00 74 26 133/78 (96) 100 Mechanical Ventilator 50.00 05/10/18 11:00 70 14 123/70 (87) 95 Mechanical Ventilator 50.00 05/10/18 10:19 66 19 100 50 05/10/18 10:00 65 18 129/77 (94) Mechanical Ventilator 50.00 05/10/18 09:00 67 25 131/83 (99) 99 Mechanical Ventilator 50.00 05/10/18 08:22 67 26 100 60 I & O 05/11/18 07:00 Intake Total 3019 ml Output Total 5850 ml Balance -2831 ml Height & Weight Height: 6'1.00" Weight: 240lbs. 7.0oz. 109.604860gf; 31.7 BMI Method:Estimated General Appearance: No Apparent Distress, Chronically ill, Obese, Other ( sedated on vent) HEENT: PERRL/EOMI Neck: Full Range of Motion, Other (trach in place) Respiratory: Decreased Breath Sounds, Rhonci Cardiovascular: Regular Rate, Rhythm Capillary Refill: Less Than 3 Seconds Gastrointestinal: normal bowel sounds, non tender, soft Extremity: Normal Capillary Refill Neurologic/Psychiatric: Other (vent/sedated) Skin: Normal Color Lymphatic: No Adenopathy Results Lab Laboratory Tests 05/10/18 03:15 05/11/18 03:45 Assessment/Plan Assessment/Plan Acute on Chronic respiratory failure with tracheostomy - vent dependent - -Pt failed weaning again yesterday secondary to both agitation and respiratory distress. Pt is having copious amounts of sputum production. Zosyn auto stopped yesterday. I am going to restart Zosyn and add Eraxis. going to discuss option of hospice with family. Pt is not currently able to make medical decisions. -CXR reviewed will give lasix 60mg IV x 1 -Start TF per dietary recommendations -Solumedrol 40 IV Q 6. -Haldol PRN , start Risperdal -Oxygen -Monitor - Zosyn, add Diflucan HX of vocal chord paralysis. Pt has had tracheostomy x 9yrs. Trach was done emergently by Dr. Galeas at that time. -Pt has failed discontinuation of trach tube in the past Acute DKA with metabolic acidosis -Start DKA protocol and monitor Pulmonary edema -Monitor CHF -echo shows EF of 30-35%, NSTEMI -Cardiology is following -Give 60mg of lasix today -decrease IVF HX of CAD with CABG 4 done in 2008 Hyperglycemia - with hypernatremia -Hep lock IVF -24units of Levemir -SSI C Psychosis/metabolic encpehalopathy - pt gets very agitated -- probable hx of drug/alcohol use -Pt is not able to take PO meds currently -PRN Haldol --PRN Dilaudid Hypernatremia -Change IVF to 1/2 NS AKF -IVF -Monitor GIB -- lower GIB vs major upper GIB ( BUN is 101) s/p total 4 units. with 1 unit last night -PT still having Melanotic stools -Protonix BID IV -Check H&H Q 6 -IVF ACOSTA FRAGA DO May 11, 2018 08:17
[2018-05-11] MEDS: MICONAZOLE 2% POWDER (DESENEX AF) 90 GM TOP SCH (09:00)
[2018-05-11] MEDS: ASPIRIN 81 MG CHEW (CHILDREN'S ASA) PO SCH (09:00)
[2018-05-11] MEDS ORDERED: ANIDULAFUNGIN INJECTION 100 MG in NS (IVPB) 100 ML IV SCH (09:00)
[2018-05-11] MEDS ORDERED: NS IV 1000 ML 1,000 ML IV SCH (09:25)
[2018-05-11] MEDS ORDERED: 1/2 NS IV SOLUTION 1,000 ML IV SCH (09:25)
[2018-05-11] MEDS ORDERED: D5 1/2 NS 1000 ML IV SOLUTION 1,000 ML IV SCH (09:30)
[2018-05-11] MEDS ORDERED: POTASSIUM CL 10MEQ/50ML IVPB 50 ML IV SCH ×2 (09:30)
[2018-05-11] MEDS ORDERED: inSUlin REGULAR TPN/DRIP ONLY 250 UNITS in NORMAL SALINE 250 ML IV SCH (09:30)
--- NOTE | 2018-05-11 10:03 | Diagnostic Imaging Report ---
INDICATION: Shortness of breath. Comparison made with prior examination 05/10/2018. FINDINGS: Cardiomegaly. There are bibasilar infiltrates. There is mild venous congestion. There is no pneumothorax. There is previous median sternotomy. Tracheostomy tube is in satisfactory position. IMPRESSION: Bibasilar infiltrates. Cardiomegaly and some central pulmonary venous congestion. Dictated by: Dictated on workstation # [id number]
--- NOTE | 2018-05-11 11:45 | Progress Note (SOAP) ---
Subjective Date Seen by a Provider: May 11, 2018 Time Seen by a Provider: 11:30 Subjective/Events-last exam Patient seen with Dr. Jimenez. clinical status unchanged. cannot tolerate vent ween do to severe agitation/psychosis. Hb stable. Focused Exam Lactate Level 05/11/18 05:30: Lactic Acid Level 1.07 Objective Exam Vital Signs Date Time Temp Pulse Resp B/P (MAP) Pulse Ox O2 Delivery O2 Flow Rate FiO2 05/11/18 11:00 120 23 137/88 (104) 97 Mechanical Ventilator 40.00 05/11/18 10:00 123 22 137/95 (109) 96 Mechanical Ventilator 40.00 05/11/18 09:28 123 22 95 50 05/11/18 09:00 123 26 143/82 (102) 95 Mechanical Ventilator 40.00 05/11/18 08:00 Mechanical Ventilator 40 05/11/18 08:00 123 14 144/82 (102) 100 Mechanical Ventilator 40.00 05/11/18 07:00 98.8 123 16 136/80 (98) 100 Mechanical Ventilator 40.00 05/11/18 07:00 123 05/11/18 06:15 99 Mechanical Ventilator 40 05/11/18 06:13 123 15 99 50 05/11/18 06:00 124 15 146/76 (99) 99 Mechanical Ventilator 40.00 05/11/18 05:23 Mechanical Ventilator 40.00 05/11/18 05:00 123 13 143/80 (101) 100 Mechanical Ventilator 50.00 05/11/18 04:15 Mechanical Ventilator 05/11/18 04:00 Mechanical Ventilator 50 05/11/18 04:00 98.0 05/11/18 04:00 122 13 131/76 (94) 98 Mechanical Ventilator 50.00 05/11/18 03:43 122 14 99 50 05/11/18 03:00 118 11 133/74 (93) 98 Mechanical Ventilator 50.00 05/11/18 02:00 121 11 129/74 (92) 98 Mechanical Ventilator 50.00 05/11/18 01:17 124 14 96 50 05/11/18 01:05 Mechanical Ventilator 05/11/18 01:00 120 20 116/69 (85) 93 Mechanical Ventilator 50.00 05/11/18 01:00 120 05/11/18 00:00 123 14 107/71 (83) 91 Mechanical Ventilator 50.00 05/11/18 00:00 Mechanical Ventilator 50 05/10/18 23:16 98.9 05/10/18 23:00 129 23 122/76 (91) 94 Mechanical Ventilator 50.00 05/10/18 22:58 Mechanical Ventilator 05/10/18 22:00 130 21 138/73 (94) 95 Mechanical Ventilator 50.00 05/10/18 21:54 128 23 98 50 05/10/18 21:00 124 24 128/75 (92) 97 Mechanical Ventilator 50.00 05/10/18 20:40 Mechanical Ventilator 05/10/18 20:00 109 25 143/76 (98) 98 Mechanical Ventilator 50.00 05/10/18 20:00 Mechanical Ventilator 50 05/10/18 19:50 50 05/10/18 19:34 104 26 98 50 05/10/18 19:15 98.0 Mechanical Ventilator 50.00 05/10/18 19:00 105 26 125/75 (92) 98 Mechanical Ventilator 50.00 05/10/18 19:00 105 05/10/18 18:00 112 28 128/75 (92) 98 Mechanical Ventilator 30.00 05/10/18 17:30 98.0 113 24 148/74 96 Mechanical Ventilator 50.00 05/10/18 17:00 116 28 148/74 (98) 97 Mechanical Ventilator 30.00 05/10/18 16:17 112 27 97 50 05/10/18 16:00 Mechanical Ventilator 60.00 05/10/18 16:00 97.8 05/10/18 16:00 128 30 159/102 (121) 90 Mechanical Ventilator 30.00 05/10/18 15:00 105 32 152/75 (100) 90 Mechanical Ventilator 30.00 05/10/18 14:34 90 32 93 30 05/10/18 14:00 87 24 144/79 (100) 96 Mechanical Ventilator 30.00 05/10/18 13:24 97.2 91 25 143/79 94 Mechanical Ventilator 30.00 05/10/18 13:05 78 26 100 40 05/10/18 13:00 80 28 143/79 (100) 100 Mechanical Ventilator 30.00 05/10/18 12:53 75 05/10/18 12:00 Mechanical Ventilator 60.00 05/10/18 12:00 74 26 133/78 (96) 100 Mechanical Ventilator 50.00 I & O 05/11/18 07:00 Intake Total 3019 ml Output Total 5850 ml Balance -2831 ml Capillary Refill : Less Than 3 Seconds General Appearance: No Apparent Distress, Chronically ill HEENT: PERRL/EOMI Respiratory: Rhonci, Other (Sedated on Vent) Cardiovascular: Regular Rate, Rhythm, No Murmur Gastrointestinal: normal bowel sounds, soft Extremity: Normal Capillary Refill Neurologic/Psychiatric: Other (Sedated on Vent) Skin: Normal Color, Warm/Dry Results Lab Laboratory Tests 05/10/18 12:00: Troponin I 1.532*H 05/10/18 13:05: Glucometer 250H 05/10/18 18:48: Glucometer 305H 05/10/18 23:15: Glucometer 339H 05/11/18 03:45: White Blood Count 14.6H, Red Blood Count 3.28L, Hemoglobin 8.0L, Hematocrit 27L , Mean Corpuscular Volume 82, Mean Corpuscular Hemoglobin 24L, Mean Corpuscular Hemoglobin Concent 30L, Red Cell Distribution Width 20.4H, Platelet Count 228, Mean Platelet Volume 12.2H, Neutrophils (%) (Auto) 93H, Lymphocytes (%) (Auto) 3L, Monocytes (%) (Auto) 5, Eosinophils (%) (Auto) 0, Basophils (%) (Auto) 0, Neutrophils # (Auto) 13.5H, Lymphocytes # (Auto) 0.4L, Monocytes # (Auto) 0.7, Eosinophils # (Auto) 0.0, Basophils # (Auto) 0.0, Neutrophils % (Manual) 96, Lymphocytes % (Manual) 2, Monocytes % (Manual) 2, Hypochromasia MODERATE, Anisocytosis MODERATE, Blood Gas Puncture Site RIGHT RADIAL, Blood Gas Patient Temperature 98.0, Arterial Blood pH 7.29*L, Arterial Blood Partial Pressure CO2 35, Arterial Blood Partial Pressure O2 116H, Arterial Blood HCO3 16*L, Arterial Blood Total CO2 17.5L, Arterial Blood Oxygen Saturation 99, Arterial Blood Base Excess -8.9L, Devin Test YES-POS, Blood Gas Ventilator Setting YES, Blood Gas Inspired Oxygen 50%, Sodium Level 142, Potassium Level 4.3, Chloride Level 106, Carbon Dioxide Level 15L, Anion Gap 21H, Blood Urea Nitrogen 20H, Creatinine 1.66H, Estimat Glomerular Filtration Rate 44, BUN/Creatinine Ratio 12, Glucose Level 418*H, Calcium Level 8.5, Phosphorus Level 4.0, Magnesium Level 2.3, Troponin I 0.620*H, B-Type Natriuretic Peptide 616.1H 05/11/18 05:30: Lactic Acid Level 1.07, Beta-Hydroxybutyrate (Chem panel) 7.13H 05/11/18 08:24: Glucometer 496*H 05/11/18 09:36: Glucometer 500*H 05/11/18 10:28: Glucometer 499*H Microbiology 05/02/18 Blood Culture - Preliminary, Resulted No growth 05/07/18 Gram Stain - Final, Complete 05/07/18 Sputum Culture - Final, Complete Pseudomonas aeruginosa Assessment/Plan Assessment/Plan Assess & Plan/Chief Complaint A 52 year old male with GI bleed, hx vocal cord paralysis and permanent trach. has not had colonoscopy before in past. initial NGT out appeared some mixed blood. patient severely agitated when sedation weened. Hb stable however does have episodes of hypotension when sedation restarted. will await medical stability then proceed with endoscopy however at this time cannot tolerate vent ween due to severe agitation/pyschosis. will hold off on endoscopy for now. Patient awaiting acceptance/transfer to [facility]. Clinical Quality Measures DVT/VTE Risk/Contraindication: Risk Factor Score Per Nursin RFS Level Per Nursing on Admit: 4+=Very High KARLA BYRD APRN May 11, 2018 11:45
--- NOTE | 2018-05-11 11:57 | Progress Note-Cardiology ---
Cardiology SOAP Progress Note Subjective: Unresponsive On mech vent through tracheostomy Fiancee by bedside Objective: I&O/Vital Signs 05/11/18 05/11/18 05/11/18 05/11/18 00:00 00:00 01:00 01:00 Pulse 123 120 120 Resp 14 20 B/P (MAP) 107/71 (83) 116/69 (85) Pulse Ox 91 93 O2 Delivery Mechanical Ventilator Mechanical Ventilator Mechanical Ventilator O2 Flow Rate 50.00 50.00 FiO2 50 05/11/18 05/11/18 05/11/18 05/11/18 01:05 01:17 02:00 03:00 Pulse 124 121 118 Resp 14 11 11 B/P (MAP) 129/74 (92) 133/74 (93) Pulse Ox 96 98 98 O2 Delivery Mechanical Ventilator Mechanical Ventilator Mechanical Ventilator O2 Flow Rate 50.00 50.00 FiO2 50 05/11/18 05/11/18 05/11/18 05/11/18 03:43 04:00 04:00 04:00 Temp 98.0 Pulse 122 122 Resp 14 13 B/P (MAP) 131/76 (94) Pulse Ox 99 98 O2 Delivery Mechanical Ventilator Mechanical Ventilator O2 Flow Rate 50.00 FiO2 50 50 05/11/18 05/11/18 05/11/18 05/11/18 04:15 05:00 05:23 06:00 Pulse 123 124 Resp 13 15 B/P (MAP) 143/80 (101) 146/76 (99) Pulse Ox 100 99 O2 Delivery Mechanical Ventilator Mechanical Ventilator Mechanical Ventilator Mechanical Ventilator O2 Flow Rate 50.00 40.00 40.00 05/11/18 05/11/18 05/11/18 05/11/18 06:13 06:15 07:00 07:00 Temp 98.8 Pulse 123 123 123 Resp 15 16 B/P (MAP) 136/80 (98) Pulse Ox 99 99 100 O2 Delivery Mechanical Ventilator Mechanical Ventilator O2 Flow Rate 40.00 FiO2 50 40 05/11/18 05/11/18 05/11/18 05/11/18 08:00 08:00 09:00 09:28 Pulse 123 123 123 Resp 14 26 22 B/P (MAP) 144/82 (102) 143/82 (102) Pulse Ox 100 95 95 O2 Delivery Mechanical Ventilator Mechanical Ventilator Mechanical Ventilator O2 Flow Rate 40.00 40.00 FiO2 40 50 05/11/18 05/11/18 10:00 11:00 Pulse 123 120 Resp 22 23 B/P (MAP) 137/95 (109) 137/88 (104) Pulse Ox 96 97 O2 Delivery Mechanical Ventilator Mechanical Ventilator O2 Flow Rate 40.00 40.00 05/11/18 00:00 Intake Total 1781 ml Output Total 3000 ml Balance -1219 ml Weight (Pounds): 240 Weight (Ounces): 7.0 Weight (Calculated Kilograms): 109.884678 Constitutional: other (unresponsive) Respiratory: No accessory muscle use; other (fair bilat air entry) Cardiovascular: regular rate-rhythm, S1 and S2, systolic murmur (soft JADA at card base) Gastrointestional: soft; No guarding, No rebound; audible bowel sounds Extremities: swelling (mild to mod [place]); No clubbing, No cyanosis Neurologic/Psychiatric: other (unresponsive; cannot cooperate with a neuro exam ) Skin: No rash on exposed areas, No ulcerations on exposed areas Results/Procedures: Labs Laboratory Tests 05/10/18 12:00: Troponin I 1.532*H 05/10/18 13:05: Glucometer 250H 05/10/18 18:48: Glucometer 305H 05/10/18 23:15: Glucometer 339H 05/11/18 03:45: White Blood Count 14.6H, Red Blood Count 3.28L, Hemoglobin 8.0L, Hematocrit 27L , Mean Corpuscular Volume 82, Mean Corpuscular Hemoglobin 24L, Mean Corpuscular Hemoglobin Concent 30L, Red Cell Distribution Width 20.4H, Platelet Count 228, Mean Platelet Volume 12.2H, Neutrophils (%) (Auto) 93H, Lymphocytes (%) (Auto) 3L, Monocytes (%) (Auto) 5, Eosinophils (%) (Auto) 0, Basophils (%) (Auto) 0, Neutrophils # (Auto) 13.5H, Lymphocytes # (Auto) 0.4L, Monocytes # (Auto) 0.7, Eosinophils # (Auto) 0.0, Basophils # (Auto) 0.0, Neutrophils % (Manual) 96, Lymphocytes % (Manual) 2, Monocytes % (Manual) 2, Hypochromasia MODERATE, Anisocytosis MODERATE, Blood Gas Puncture Site RIGHT RADIAL, Blood Gas Patient Temperature 98.0, Arterial Blood pH 7.29*L, Arterial Blood Partial Pressure CO2 35, Arterial Blood Partial Pressure O2 116H, Arterial Blood HCO3 16*L, Arterial Blood Total CO2 17.5L, Arterial Blood Oxygen Saturation 99, Arterial Blood Base Excess -8.9L, Devin Test YES-POS, Blood Gas Ventilator Setting YES, Blood Gas Inspired Oxygen 50%, Sodium Level 142, Potassium Level 4.3, Chloride Level 106, Carbon Dioxide Level 15L, Anion Gap 21H, Blood Urea Nitrogen 20H, Creatinine 1.66H, Estimat Glomerular Filtration Rate 44, BUN/Creatinine Ratio 12, Glucose Level 418*H, Calcium Level 8.5, Phosphorus Level 4.0, Magnesium Level 2.3, Troponin I 0.620*H, B-Type Natriuretic Peptide 616.1H 05/11/18 05:30: Lactic Acid Level 1.07, Beta-Hydroxybutyrate (Chem panel) 7.13H 05/11/18 08:24: Glucometer 496*H 05/11/18 09:36: Glucometer 500*H 05/11/18 10:28: Glucometer 499*H Microbiology 05/02/18 Blood Culture - Preliminary, Resulted No growth 05/07/18 Gram Stain - Final, Complete 05/07/18 Sputum Culture - Final, Complete Pseudomonas aeruginosa Laboratory Tests 05/10/18 03:15 05/11/18 03:45 A/P: Assessment: Uncontrolled DM II, insulin-requiring, and diabetic ketoacidosis, being managed by Dr Barnes and Dr Iglesias Acute on chronic respiratory failure; history of tracheostomy due to vocal cord injury during bypass surgery, managed by Dr. Iglesias Ac on chronic systolic CHF. LVEF 30-35%, mild to mod MR, PASP 30 mmHg on echo of 05/09/18 Elevated troponin: consider ac NSTEMI (type 1) and/or type 2 (severe anemia and hypoxemia on top of known extensive CAD); managed conservatively Mental status changes: psychosis/metabolic encephalopathy, managed by Dr Barnes and Dr Iglesias Septic and/or cardiogenic shock at presentation, improved CARLIN-2, likely due to shock, managed by Dr Barnes and Dr Iglesias Ac GI bleed with severe anemia that has required multiple blood transfusions during this hospitalization H/o PAD Plan: * I reviewed his hospital records, spoke with Dr Montgomery yesterday, spoke with his fiancee today and examined him * He is critically ill * Prognosis is guarded * From the cardiac standpoint, it appears best to continue a conservative approach * Monitor labs YANG KNOX MD [facility] May 11, 2018 11:57
[2018-05-11 12:00] LABS: ABG BASE EXCESS -4.5 MMOL/L (-2.5-2.5); ABG OXYGEN SATURATION 99 % (94-100); ABG PCO2 31 MMHG (35-45); ABG PH 7.42 (7.37-7.43); ABG PO2 92 MMHG (79-93); ABG TCO2 20.1 MMOL/L (21.0-31.0)
[2018-05-11 12:03] LABS: ALLENS TEST YES-POS
[2018-05-11 12:04] LABS: INSPIRED O2 30%; PATIENT TEMP 99.1; VENTILATOR YES
--- NOTE | 2018-05-11 12:30 | NUR ---
WASTED UNABLE TO CRUSH EXTENDED RELEASE OXYCOTIN.
--- NOTE | 2018-05-11 12:44 | Progress Note-Hospitalist ---
Subjective HPI/CC On Admission Date Seen by Provider: May 11, 2018 Time Seen by Provider: 11:45 Pt is a 52yoCM with a PMH of IDDMII, PVD, trach dependency from vocal cord paralysis who presented to the ER due elevated blood sugar. He is unable to provide any history due to altered mentation but his fiance is at bedside who helps fill in some details. reported he was normal 2 days ago and when she returned home from work at 4pm yesterday he was already asleep. She did not think much of this but she awoke this morning at 230am and he seemed "out of it " so she checked his blood sugar and it read over 600 so she brought him to the ER. He was found to have a BS of >900 and was hypotensive on arrival. He also had an CARLIN with significant uremia and hyperkalemia. He was transferred here for higher level of care. En route he had a large bloody bowel movement. His fiance is unsure if he had any other bloody bowel movements. Subjective/Events-last exam Day number 10 in ICU Now in DKA Following protocol Prognosis guarded May be a [place] candidate Focused Exam Lactate Level 05/11/18 05:30: Lactic Acid Level 1.07 05/11/18 11:41: Lactic Acid Level 1.68 Lactic Acid Level Laboratory Tests Test 05/11/18 11:41 Lactic Acid Level 1.68 MMOL/L (0.50-2.00) Objective Exam Vital Signs Vital Signs Date Time Temp Pulse Resp B/P (MAP) Pulse Ox O2 Delivery O2 Flow Rate FiO2 05/11/18 13:00 117 05/11/18 12:05 21 99 50 05/11/18 12:00 125/67 (86) Mechanical Ventilator 40.00 05/11/18 08:30 99.1 Capillary Refill : Less Than 3 Seconds General Appearance: No Apparent Distress, Chronically ill HEENT: PERRL/EOMI Neck: Full Range of Motion, Other (trach in place) Respiratory: Rhonci, Other (Sedated on Vent) Cardiovascular: Regular Rate, Rhythm, No Murmur Gastrointestinal: Normal Bowel Sounds, Non Tender, Soft Genital/Rectal: Other (benson in place) Extremity: Normal Capillary Refill Neurologic/Psychiatric: Other (Sedated on Vent) Skin: Normal Color, Warm/Dry Lymphatic: No Adenopathy Results/Procedures Lab Laboratory Tests 05/11/18 03:45 Patient resulted labs reviewed. Imaging: Reviewed Imaging Report Assessment/Plan Assessment and Plan Assess & Plan/Chief Complaint Assessment: Multisystem organ failure VDRF CAD previous CABG Trach permanent Acute DKA Plan: Maintain vent Prognosis guarded DKA protocol Critical Care Critically Ill Patient Diagnosis/Problems Diagnosis/Problems (1) Hyperosmolar non-ketotic state in patient with type 2 diabetes mellitus Status: Resolved Resolution Date/Time: 05/05/18 @ 10:19 (2) Tracheostomy present Status: Chronic (3) Shock Status: Resolved Resolution Date/Time: 05/05/18 @ 10:12 (4) Hyperkalemia Status: Resolved Resolution Date/Time: 05/05/18 @ 10:20 (5) Acute respiratory failure Status: Resolved Qualifiers: Respiratory failure complication: unspecified whether with hypoxia or hypercapnia Qualified Codes: J96.00 - Acute respiratory failure, unspecified whether with hypoxia or hypercapnia Resolution Date/Time: 05/05/18 @ 10:19 (6) Squamous cell carcinoma of skin of right middle finger (7) HHS (hypothenar hammer syndrome) Status: Acute (8) CAD (coronary artery disease) Qualifiers: Coronary Disease-Associated Artery/Lesion type: bypass graft [place] vs. transplanted heart: [place] heart Associated angina: angina presence unspecified Qualified Codes: I25.810 - Atherosclerosis of coronary artery bypass graft(s) without angina pectoris (9) Lactic acidosis Status: Resolved Resolution Date/Time: 05/03/18 @ 07:31 (10) DKA (diabetic ketoacidoses) Clinical Quality Measures DVT/VTE Risk/Contraindication: Risk Factor Score Per Nursin RFS Level Per Nursing on Admit: 4+=Very High ELIZABETH JANSEN DO May 11, 2018 12:44
--- NOTE | 2018-05-11 14:22 | Wound Care Assessment ---
Wound Care Assessment Chief Complaint Ulcers R foot webspaces. HPI The patient is a 52 year old male admitted with multiple serious medical problems noted to have ulceration of the webspaces of the R foot. The patient does not answer questions by mouthing words or gesture. He is extubated. Wounds examined. This represents MASD with resultant diabetic foot ulcer in individual with uncontrolled blood glucose levels. Care orders written. 05/11/18 -- Update -- Wounds are stable with current dressing regimen. Recommend continue same. Smoking Status: Current Everyday Smoker Recreational Drug Use: No Alcohol Use: Denies Use Review of Systems General: Other (Unable to obtain, patient on ventilator.) Exam Vital Signs Date Time Temp Pulse Resp B/P (MAP) Pulse Ox O2 Delivery O2 Flow Rate FiO2 05/11/18 14:00 120 24 137/70 (92) 96 Mechanical Ventilator 30.00 05/11/18 12:05 50 05/11/18 08:30 99.1 Capillary Refill : Less Than 3 Seconds General Appearance: no apparent distress Extremities: other (Multiple clean superficial ulcers in the webspaces of the R foot, improved.) Neurologic/Psychiatric: other (Unresponsive.) Results Laboratory Tests 05/10/18 18:48: Glucometer 305H 05/10/18 23:15: Glucometer 339H 05/11/18 03:45: White Blood Count 14.6H, Red Blood Count 3.28L, Hemoglobin 8.0L, Hematocrit 27L , Mean Corpuscular Volume 82, Mean Corpuscular Hemoglobin 24L, Mean Corpuscular Hemoglobin Concent 30L, Red Cell Distribution Width 20.4H, Platelet Count 228, Mean Platelet Volume 12.2H, Neutrophils (%) (Auto) 93H, Lymphocytes (%) (Auto) 3L, Monocytes (%) (Auto) 5, Eosinophils (%) (Auto) 0, Basophils (%) (Auto) 0, Neutrophils # (Auto) 13.5H, Lymphocytes # (Auto) 0.4L, Monocytes # (Auto) 0.7, Eosinophils # (Auto) 0.0, Basophils # (Auto) 0.0, Neutrophils % (Manual) 96, Lymphocytes % (Manual) 2, Monocytes % (Manual) 2, Hypochromasia MODERATE, Anisocytosis MODERATE, Blood Gas Puncture Site RIGHT RADIAL, Blood Gas Patient Temperature 98.0, Arterial Blood pH 7.29*L, Arterial Blood Partial Pressure CO2 35, Arterial Blood Partial Pressure O2 116H, Arterial Blood HCO3 16*L, Arterial Blood Total CO2 17.5L, Arterial Blood Oxygen Saturation 99, Arterial Blood Base Excess -8.9L, Devin Test YES-POS, Blood Gas Ventilator Setting YES, Blood Gas Inspired Oxygen 50%, Sodium Level 142, Potassium Level 4.3, Chloride Level 106, Carbon Dioxide Level 15L, Anion Gap 21H, Blood Urea Nitrogen 20H, Creatinine 1.66H, Estimat Glomerular Filtration Rate 44, BUN/Creatinine Ratio 12, Glucose Level 418*H, Calcium Level 8.5, Phosphorus Level 4.0, Magnesium Level 2.3, Troponin I 0.620*H, B-Type Natriuretic Peptide 616.1H 05/11/18 05:30: Lactic Acid Level 1.07, Beta-Hydroxybutyrate (Chem panel) 7.13H 05/11/18 08:24: Glucometer 496*H 05/11/18 09:36: Glucometer 500*H 05/11/18 10:28: Glucometer 499*H 05/11/18 11:41: Lactic Acid Level 1.68 05/11/18 11:48: Blood Gas Puncture Site L RADIAL, Blood Gas Patient Temperature 99.1, Arterial Blood pH 7.42, Arterial Blood Partial Pressure CO2 31L, Arterial Blood Partial Pressure O2 92, Arterial Blood HCO3 19L, Arterial Blood Total CO2 20.1L, Arterial Blood Oxygen Saturation 99, Arterial Blood Base Excess -4.5L, Devin Test YES-POS, Blood Gas Ventilator Setting YES, Blood Gas Inspired Oxygen 30% 05/11/18 13:50: Glucometer 414*H Microbiology 05/02/18 Blood Culture - Preliminary, Resulted No growth 05/07/18 Gram Stain - Final, Complete 05/07/18 Sputum Culture - Final, Complete Pseudomonas aeruginosa Assessment/Plan/Dx 1. Diabetic foot ulcers, multiple superficial ulcers web spaces of R foot, Henson Grades 1 and 2. 2. Diabetes with hyperglycemia, on insulin drip. 3. Respiratory failure. Plan: Dressing orders given, arterial evaluation is deferred pending clinical stability. ELISA NARAYAN MD May 11, 2018 14:22
--- NOTE | 2018-05-11 16:18 | NUR ---
Pt report called to KASI Gamboa at [facility]. EMS at bedside at this time to transport pt to [place] at this time. Personal belongings at family notified of pt transport at this time.
== END 2018-05-11 17:02 | DRG 682 ==
LOC: EDUNIT# 05:09 → ER FS 05:11 → ICU 07:37
PROVIDERS: ADMIT Internal Medicine; ATTEND Internal Medicine
PROC: 5A1955Z Respiratory Ventilation, Greater than 96 Consecutive Hours (ICD-10-PCS; principal; 2018-05-02)
PROC: 0BH17EZ Insertion of Endotracheal Airway into Trachea, Via Natural or Artificial Opening (ICD-10-PCS; 2018-05-02)
DX: N17.0 Acute kidney failure with tubular necrosis (principal); G93.41 Metabolic encephalopathy; R57.8 Other shock; E11.00 Type 2 diabetes mellitus with hyperosmolarity without nonketotic hyperglycemic-hyperosmolar coma (NKHHC); J81.0 Acute pulmonary edema; J96.10 Chronic respiratory failure, unspecified whether with hypoxia or hypercapnia; E11.10 Type 2 diabetes mellitus with ketoacidosis without coma; K92.2 Gastrointestinal hemorrhage, unspecified; E87.2 Acidosis; E87.1 Hypo-osmolality and hyponatremia; F23 Brief psychotic disorder; I21.4 Non-ST elevation (NSTEMI) myocardial infarction; I13.0 Hypertensive heart and chronic kidney disease with heart failure and stage 1 through stage 4 chronic kidney disease, or unspecified chronic kidney disease; I50.23 Acute on chronic systolic (congestive) heart failure; N18.9 Chronic kidney disease, unspecified; E87.5 Hyperkalemia; J38.00 Paralysis of vocal cords and larynx, unspecified; I95.9 Hypotension, unspecified; F17.210 Nicotine dependence, cigarettes, uncomplicated; I25.10 Atherosclerotic heart disease of native coronary artery without angina pectoris; J43.9 Emphysema, unspecified; E11.51 Type 2 diabetes mellitus with diabetic peripheral angiopathy without gangrene; I49.3 Ventricular premature depolarization; E11.621 Type 2 diabetes mellitus with foot ulcer; L97.519 Non-pressure chronic ulcer of other part of right foot with unspecified severity; K21.9 Gastro-esophageal reflux disease without esophagitis; F41.9 Anxiety disorder, unspecified; Z93.0 Tracheostomy status; Z79.4 Long term (current) use of insulin; Z95.1 Presence of aortocoronary bypass graft
CPT/HCPCS: 36415; 36569; 36600; 70450; 71045; 71250; 73620; 76937; 80048; 80053; 80202; 80306; 81000; 82010; 82040; 82140; 82805; 82947; 82962; 83036; 83605; 83690; 83735; 83880; 84100; 84478; 84484; 85007; 85014; 85018; 85025; 85027; 85610; 85730; 86850; 86900; 86901; 86920; 87040; 87070; 87077; 87081; 87186; 87205; 93005; 93306; 93970; 94002; 94003; 94640; 94799; 96361; 96365; 96367; 96368; 96375